=== PATIENT | male | born 1940 | race Caucasian/White ===

== ENCOUNTER 2018-11-21 16:06 | Inpatient (IN) ==
[2018-11-21] MEDS ORDERED: ASPIRIN PR ONE (16:41)
--- NOTE | 2018-11-21 17:53 | Diag Imaging Result Doc PS360 ---
CHEST-2 VIEWS - 11/21/2018 INDICATION: SOB COMPARISON: 06/25/2018 FINDINGS: There has been improvement in the opacification of the right upper lobe. Stable CABG changes and pacemaker. Able cardiomegaly and pulmonary vascular congestion. Stable trace pleural effusions bilaterally. IMPRESSION: Improved aeration of the opacification/collapse of the right upper lobe. Otherwise no change. Electronically signed by Man Lucia 11/21/2018 5:50 PM
[2018-11-21 17:54] LABS: BASO# 0.02 X1000 (0.0-0.2); BASO% 0.4 % (0.0-0.8); EOS# 0.26 X1000 (0.0-0.7); HEMATOCRIT 25.7 % (42.0-52.0); HEMOGLOBIN 7.7 g/dL (14.0-18.0); LYMPH# 0.75 X1000 (1.2-3.4); LYMPH% 14.6 % (20.5-51.1); MCH 23.8 PG (27-31); MCV 79.3 FL (81-99); MONO# 0.62 X1000 (0.11-0.59); PLT 173 X1000 (130-400); RBC 3.24 XMIL (4.7-6.1); RDW 19.7 % (11.5-14.5); WBC 5.15 X1000 (4.8-10.8)
[2018-11-21 17:56] LABS: INR 1.21; PROTIME 16.3 Seconds (11.0-16.0)
[2018-11-21 17:57] LABS: PTT 38.1 Seconds (22.3-41.8)
[2018-11-21 18:01] LABS: ALB/GLOB RATIO 1.5; ALBUMIN 3.2 g/dL (3.5-5.0); CALCIUM 8.2 mg/dL (8.8-10.2); CREATININE 2.5 mg/dL (0.7-1.2); POTASSIUM 4.4 mmol/L (3.5-5.1); TOTAL BILIRUBIN 0.61 mg/dL (0.20-1.00); TOTAL PROTEIN 5.3 g/dL (6.3-8.3)
[2018-11-21] MEDS ORDERED: LASIX IV ONE (18:40)
--- NOTE | 2018-11-21 19:40 | PROVIDER DOCUMENTATION ---
This chart was entered by Emelina Guadarrama Scribe, acting as scribe for Luis F Holguin CRNP. HPI-Respiratory General - General Chief Complaint: Shortness of Breath Stated Complaint: ABNORMAL LABS,CHF Time Seen by Provider: 11/21/18 16:18 Source: patient, family Allergies/Adverse Reactions: Patient Allergies Allergy/AdvReac Type Severity Reaction Status Date / Time Sulfa (Sulfonamide Allergy Intermediate RASH Verified 03/11/18 09:43 Antibiotics) baclofen Allergy confusion Verified 03/11/18 09:43 Home Medications: Home Medication List Medication Instructions Recorded Confirmed Last Taken Type Allopurinol 150 mg PO DAILY 03/11/18 06/26/18 Unknown History Aspirin [Aspir-Low] 81 mg PO DAILY 03/11/18 06/26/18 Unknown History Pravastatin Sodium 80 mg PO QHS 03/11/18 06/26/18 Unknown History Terazosin HCl 5 mg PO QHS 03/11/18 06/26/18 Unknown History Amiodarone [Cordarone] 400 mg PO DAILY #30 tab 03/15/18 06/26/18 Unknown Rx Folic Acid 1 mg PO DAILY #120 tab 03/15/18 06/26/18 Unknown Rx Ascorbate Calcium [Vitamin C] 500 mg PO DAILY 06/26/18 06/26/18 Unknown History Carvedilol 6.25 mg PO BID 06/26/18 06/26/18 Unknown History Cyanocobalamin (Vitamin B-12) 2,500 mcg PO DAILY 06/26/18 06/26/18 Unknown History [Vitamin B12] Ferrous Sulfate [Iron] 27 mg PO DAILY 06/26/18 06/26/18 Unknown History Hydrocodone Bit/Acetaminophen 1 each PO Q6H PRN PRN 06/26/18 06/26/18 Unknown History [Hydrocodon-Acetaminophen 5-325] Doxycycline 100 mg PO BID #7 tab 06/27/18 Unknown Rx Iron Carbonyl/Ascorbic Acid 1 each PO BID tablet 06/27/18 Unknown Rx [Icar-C] Mvi/Minerals Chew [Flintstones 1 each PO DAILY tablet 06/27/18 Unknown Rx Complete] Potassium Chloride E.r. [Klor-Con] 10 meq PO DAILY tablet 06/27/18 Unknown Rx Ranitidine [Zantac] 150 mg PO BID #10 tab 06/27/18 Unknown Rx - History of Present Illness-Resp Nature of Presenting Problem: 78 yowm presents to the ed with c/o worsening sob and fluid overload. pt has hx of CHF and has went last to weeks to [place] for [facility] work. [facility] told him to go to local ed. pt on exam is sob with exertion and has distended abdomen 3+ BLE edema. pt sts he noticed sob and more fluid retaining 3 weeks prior. pt denies scrotum swelling and sts mostly just BLE and abdomen just worsened since onset Quality of Pain: reports: pressure Severity in ED: reports: moderate Onset/Duration: reports: other (3 weeks) Timing: reports: still present, constant, getting worse Cough Quality/Degree: reports: mild Episode Frequency: occasional episodes Current Respiratory Medication Therapy: Initiated see nurses note Modifying Factors: improves with: oxygen, sitting upright. worse with: exertion, coughing Associated Symptoms: reports: cough, shortness of breath. denies: wheezing Similar Symptoms Previously?: Yes Recently seen or treated by another doctor?: Yes (has been to [place] ) Review of Systems - Adult - REVIEW OF SYSTEMS - ADULT Constitutional: denies: chills, fever Eyes: reports: no symptoms reported Ears, Nose, Mouth & Throat: reports: no symptoms reported Cardiovascular: denies: chest pain, palpitations Respiratory: reports: see HPI, cough, dyspnea on exertion, shortness of breath. denies: wheezing Gastrointestinal: reports: see HPI, other (distended abdomen). denies: abdominal pain, diarrhea, nausea, vomiting Genitourinary: reports: no symptoms reported Musculoskeletal: denies: back pain, neck pain Integumentary: reports: no symptoms reported Neurological: denies: dizziness/vertigo, headache/migraines, slurred speech, syncope, tremors Psychiatric: reports: no symptoms reported Endocrine: reports: no symptoms reported Hematologic/Lymphatic: reports: no symptoms reported Allergic/Immunologic: reports: no symptoms reported All Other Systems: Reviewed and Negative Past History - Adult - PAST MEDICAL HISTORY-ADULT Review of Records: reports: Old Records Reviewed, Nursing Assessment Review, Medications Reviewed, Social history reviewed & non-contributory. Major Childhood Illnesses: reports: denies history Cardiovascular: reports: CHF, HTN, hyperlipidemia, CO Respiratory: reports: denies history Gastrointestinal: reports: GERD Obstetrical/Gynecological: reports: denies history Genitourinary: reports: kidney disease Musculoskeletal: reports: denies history Neurological: reports: CVA, Multiple Sclerosis Psychiatric: reports: denies history Endocrine/Immune: reports: denies history Other Conditions: reports: denies history - PRIOR SURGERIES/PROCEDURES Surgical/Procedure History: reports: CABG, other (cartoids, stent in kidney) - IMMUNIZATION STATUS Childhood Immunizations: See Nurse Assessment Flu Vaccine: See Nurse Assessment - FAMILY HISTORY Family History: reviewed, not pertinent - SOCIAL HISTORY Smoking: denies Substance Use: denies Living Situation: family Physical Exam-General - PHYSICAL EXAM-ADULT Initial Vital Signs Reviewed: Yes - CONSTITUTIONAL General Appearance: appears well, alert, no apparent distress - EYES Eyes: PERRL/EOMI, pink conjunctivae - HEAD, EARS, NOSE, MOUTH & THROAT HENMT: moist mucous membranes, dental decay - NECK Neck: full range of motion, normal inspection - RESPIRATORY Respiratory: chest non-tender, lungs clear, normal breath sounds, other (sob with exertion or bending over at the waist) - CARDIOVASCULAR Cardiovascular: normal peripheral pulses, bradycardia (53) - GASTROINTESTINAL (ABDOMEN) Abdominal Exam: normal bowel sounds, soft, distended. negative: guarding - LYMPHATIC Lymphatic: no adenopathy - MUSCULOSKELETAL Back Exam: normal inspection, no CVA tenderness, no vertebral tenderness Extremity: normal range of motion, no calf tenderness, normal capillary refill, pelvis stable, swelling (BLE 3+) - SKIN Integumentary: normal color, normal turgor, warm/dry - NEUROLOGIC Neurologic: grossly normal, no motor/sensory deficits - PSYCHIATRIC Psych/Mental Status: normal mood/affect, normal thought content, normal thought process, oriented x 3 Progress - PLAN OF CARE/RESULTS Progress/Plan/Lab Results: Vital Signs - 8 hr 11/21/18 16:10 Temperature 97.6 F Pulse Rate 53 L Respiratory Rate 16 Blood Pressure 101/62 O2 Sat by Pulse Oximetry 98 Laboratory Results - last 24 hr 11/21/18 11/21/18 11/21/18 17:05 17:05 17:05 WBC 5.15 RBC 3.24 L Hgb 7.7 L Hct 25.7 L MCV 79.3 L MCH 23.8 L MCHC 30.0 L RDW Std Deviation 19.7 H Plt Count 173 MPV 12.0 H Immature Gran % (Auto) 0.0 Neut % (Auto) 68.0 Lymph % (Auto) 14.6 L Allen % (Auto) 12.0 H Eos % (Auto) 5.0 Baso % (Auto) 0.4 Immature Gran # (Auto) 0.00 Neut # (Auto) 3.50 Lymph # (Auto) 0.75 L Allen # (Auto) 0.62 H Eos # (Auto) 0.26 Baso # (Auto) 0.02 PT INR PTT (Actin FS) Sodium 140 Potassium 4.4 Chloride 109 H Carbon Dioxide 18 L Anion Gap 13 BUN 37 H Creatinine 2.5 H Estimated GFR/1.73 m2 25 BUN/Creatinine Ratio 15 Glucose 99 Calculated Osmolality 288 Calcium 8.2 L Total Bilirubin 0.61 AST 20 ALT 16 Alkaline Phosphatase 152 H Creatine Kinase 27 Troponin T Cxy-P-Ztbyhulthop Pept 49647 H Total Protein 5.3 L Albumin 3.2 L Globulin 2.1 Albumin/Globulin Ratio 1.5 11/21/18 11/21/18 17:05 17:05 WBC RBC Hgb Hct MCV MCH MCHC RDW Std Deviation Plt Count MPV Immature Gran % (Auto) Neut % (Auto) Lymph % (Auto) Allen % (Auto) Eos % (Auto) Baso % (Auto) Immature Gran # (Auto) Neut # (Auto) Lymph # (Auto) Allen # (Auto) Eos # (Auto) Baso # (Auto) PT 16.3 H INR 1.21 PTT (Actin FS) 38.1 Sodium Potassium Chloride Carbon Dioxide Anion Gap BUN Creatinine Estimated GFR/1.73 m2 BUN/Creatinine Ratio Glucose Calculated Osmolality Calcium Total Bilirubin AST ALT Alkaline Phosphatase Creatine Kinase Troponin T < 0.010 Uef-A-Dqkktnwyggo Pept Total Protein Albumin Globulin Albumin/Globulin Ratio Orders Category Date Time Status Cardiac Monitoring DIRECTED Care 11/21/18 16:42 Active Saline Loc NOW Care 11/21/18 16:42 Active CHEST-2 VIEWS [RAD] Stat Exams 11/21/18 16:42 Completed CBC WITH ELECTRONIC DIFF [HEME] Stat Lab 11/21/18 17:05 Completed CK PROFILE [SP CHEM] Stat Lab 11/21/18 17:05 Completed COMPREHENSIVE METABOLIC PANEL [CHEM] Stat Lab 11/21/18 17:05 Completed PRO B-NATRIURETIC PEPTIDE Stat Lab 11/21/18 17:05 Completed PROTIME WITH INR [COAG] Stat Lab 11/21/18 17:05 Completed PTT [COAG] Stat Lab 11/21/18 17:05 Completed TROPONIN T Stat Lab 11/21/18 17:05 Completed Aspirin Med 11/21/18 16:41 Discontinued 300 mg [place] NOW ONE Furosemide [Lasix] Med 11/21/18 18:40 Discontinued 40 mg IV NOW ONE CP/SOB/Palp >45 yrs of Age Stat Oth 11/21/18 16:41 Ordered EKG [EKG] Stat Ther 11/21/18 16:42 Ordered I discussed with the pt the findings of his Labs, CXR, and PE findings. He agreed to be admitted. I discussed with Dr. Samayoa the pt findings and he agreed to admit the pt. Result Diagrams: 11/21/18 17:05 11/21/18 17:05 - CONSULTS/PCP/HOSPITALIST Notification #1 *Consult/PCP/Hospitalist*: Dr. Samayoa Time Discussed: 19:39 Reason/Comments: CHF, anemia Consult Disposition: Admit Departure - Departure Date of Disposition Decision: 11/21/18 Time of Disposition Decision: 19:40 DIAGNOSIS: CHF (congestive heart failure), Anemia Disposition: ADMITTED INPATIENT 09 Certified Medical Emergency: Emergent Condition: Stable Referrals and Follow-Ups: None,PCP [Primary Care Provider] - - Critical Care Note This patient required my direct & personal management of CC.: No Attestation - Physician/ PATRICIA Attestation Patient care was provided by Advanced Practice Provider:: Yes Advanced Practice Provider documentation review:: The Mid-level provider documentation, treatment plan and medical decision making was reviewed by the physician who agrees with all treatment and medical decision making by the MLP. The physician spent face to face time with patient:: No Advanced Practice Provider documentation review:: Supervising physician onsite and consulted in the evaluation and care of this patient. The physician did not have a face to face encounter with the patient. This chart was documented by the indicated scribe, (Emelina Guadarrama Scribe) and accurately reflects the services I performed and decisions made by me, Luis F Holguin CRNP, as attested by the provider's signature.
--- NOTE | 2018-11-21 21:40 | HISTORY AND PHYSICAL ---
PRIMARY CARE DATABASE MODELER: Dr. Paras Saavedra. [facility] also [facility]. PRIMARY CARE PROVIDER: [place], [place]. REASON FOR ADMISSION: One week history of progressive shortness of breath. HISTORY OF PRESENT ILLNESS: Mr. Mekhi Parra is a 78-year-old male with past medical history of chronic systolic heart failure with an ejection fraction of about 20%. He also has a history of hypertension, hyperlipidemia, and coronary artery disease status post CABG x2. He has other history of BPH, hypertensive heart disease, renal artery stenosis, gout, AAA, prior CVA with right- sided weakness, and chronic anemia. His most recent echo, however, was done on June of last year was 30%. The patient reports over the last one week he has been having progressive shortness of breath with mild exertion, lower extremity and abdominal swelling, and a worsening cough, which is nonproductive. He denies any chest pain, palpitations, or anginal type symptoms. He denies any orthopnea or PND. He does admit to easy satiety and decreased appetite over the last one month. He also reports increased weakness of his lower extremity, up to the point over the last two weeks he has been unable to barely stand and change his pants. He has also had increased falls as a consequence of weakness in his lower extremities, although right greater than left due to prior CVA. No fever. No chills. No additional GI complaints. No complaints. No new focal neurological complaints. No polydipsia, arthralgia, or rash. REVIEW OF SYSTEMS: 12 systems were done, positive findings are noted above. ALLERGIES: Sulfa and Baclofen. HOME MEDICATIONS: List has not been reconciled, but oddly enough when I reviewed his home medication list, I did not see any discharge medications, i.e. Lasix, when I reviewed his discharge medication list, it was not noted at all. PAST MEDICAL HISTORY: Questionable history of multiple sclerosis and chronic kidney disease stage 3. Other findings as noted above. FAMILY HISTORY: Notable for heart disease in first-degree relatives. 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 Does not smoke but drinks occasional beer. No sodas. No illicit drug use. He is and lives with his . PAST SURGICAL HISTORY: He has had a pacemaker placed, CABG x2, right renal artery stent. IMAGING: X-ray showed mild pulmonary venous congestion. LABORATORY WORK: White count 5000, hemoglobin 7, hematocrit 25, MCV 79, RDW 19, platelet count is 173,000 with normal differential. BUN 27, creatinine 2.5, which is pretty much his baseline, proBNP is 15,000. Troponin is negative. Transaminases are negative. Alkaline phosphatase is 152. PT is 16, INR 1.2. EKG was ordered but has not been done at this time. PHYSICAL EXAMINATION: GENERAL: Chronically ill, thin elderly man who is not in acute distress. VITAL SIGNS: Blood pressure is 101/60, heart rate 53, respirations 16, temperature 97.6. Oxygen saturation 98% on room air HEAD: Normocephalic, atraumatic. EYES: PERRLA. EOMI. He is anicteric, mildly pale. ENT: Oropharyngeal exam is grossly normal. No central cyanosis. NECK: Supple. Noticeable JVD and possible hepatojugular reflux. He has a right carotid bruit. CHEST: Reveals decreased entry in both lung quigley with a few bibasilar crepitations. No wheezes. CARDIOVASCULAR: First and second heart sounds are heard. No gallops. Loud 3/6 ejection systolic murmur heard radiating into the neck. Rhythm is regular. ABDOMEN: Distended. No focal areas of tenderness. No masses or organomegaly. Bowel sounds are normal. RECTAL: Exam is deferred. EXTREMITIES: Patient has 3+ pitting edema in the right lower extremity and 2+ on the left. His distal lower extremities are cool to touch. I cannot appreciate any pulsations due to degree of edema in both feet. No clubbing or peripheral cyanosis. He has 2+ pulses distally in both upper extremities. Pulses are regular, good rhythm and symmetrical. NEUROLOGIC: The patient has noticeable right-sided hemiparesis, I rate it about 2/5 on the right and he has a flexion deformity of the right MCP and PIP joints of the hand. There is no other focal deficit. SKIN: Intact with a few bruises on the dorsal aspect of his right forearm and shins of both legs. MUSCULAR: Grossly normal otherwise, except for findings as noted above. ASSESSMENT: 1. Acute on chronic systolic heart failure exacerbation. 2. Microcytic anemia probably secondary to iron deficiency anemia ? "gastrointestinal bleed" 3. Coronary artery disease. 4. Chronic kidney disease. 5. Hypertensive heart disease. 6. Benign prostatic hypertrophy. 7. Peripheral arterial disease. 8. Gout. 9. Hyperlipidemia. PLAN: This patient has been given IV push Lasix. I am going to continue the Lasix drip. Do daily BMP and chest x-rays to document the effect of our treatment on this patient. EKG is still pending. Will need reviewed. Serial enzymes will be done. The patient will definitely need his medications overhauled. He has relative contraindication to ARB and spironolactone. Consider BiDil, if patient can tolerate. Dietary consult needs to be made for this patient. Of issue, this patient has a degree of microcytosis, suggestive of possible iron deficiency anemia. Will do Hemoccult stools to make sure there is no bleeding. Start the patient on PPI since he is on chronic aspirin therapy. If the patient's stools are positive, may elect to just treat conservatively with PPI and if he continues to have microcytosis and iron deficiency anemia, then EGD may be warranted. The rest of the anemia workup as ordered needs to be followed. For now, will withhold transfusion but type and screen has been ordered. This is because patient may have dilution effect from CHF and reassess tomorrow to see where the hemoglobin and hematocrit is and then decide on transfusion, if deemed necessary. cc: Bing Samayoa MD MTDD
[2018-11-21] MEDS ORDERED: NORCO-10 PO PRN (21:51)
[2018-11-21] MEDS: NORCO-5 PO PRN (22:30)
[2018-11-21] MEDS: DUONEB (A & A) INH SCH (22:38)
[2018-11-21] MEDS: LASIX 100 MG in NS 90 ML IV SCH (22:57)
[2018-11-21] MEDS: PROTONIX PO SCH (22:58)
[2018-11-21 23:20] LABS: RETIC% 0.56 % (0.8-2.1); RETIC-HE 22.6 PG (28.2-36.6)
[2018-11-21 23:56] LABS: IRON SATURATION 7 %; TIBC 332 ug/dL; TOTAL IRON 24 ug/dL (53-167); UNBOUND IRON 308 ug/dL (112-346)
[2018-11-22 02:39] LABS: URINE SOURCE CATH
[2018-11-22 03:12] LABS: BILIRUBIN URINE NEGATIVE (NEGATIVE); BLOOD URINE NEGATIVE (NEGATIVE); COLOR YELLOW; GLUCOSE URINE NEGATIVE (NEGATIVE); KETONE URINE NEGATIVE (NEGATIVE); LEUKOCYTES URINE NEGATIVE (NEGATIVE); NITRITE URINE NEGATIVE (NEGATIVE); PROTEIN URINE 30 mg/dL (NEGATIVE); SP GRAVITY URINE 1.005; TURBIDITY URINE HAZY (CLEAR); UR EPITHELIAL CELLS <10 /HPF (<10); URINE BACTERIA NEGATIVE /HPF; URINE RBC <10 /HPF (<10); URINE WBC <10 /HPF (<10); UROBILINOGEN URINE NORMAL (NORMAL)
[2018-11-22 05:26] LABS: BASO# 0.03 X1000 (0.0-0.2); BASO% 0.6 % (0.0-0.8); EOS# 0.31 X1000 (0.0-0.7); EOS% 6.2 % (0.0-10.0); HEMATOCRIT 26.6 % (42.0-52.0); LYMPH# 0.96 X1000 (1.2-3.4); LYMPH% 19.3 % (20.5-51.1); MCHC 30.1 g/dL (33-37); MCV 79.6 FL (81-99); MONO# 0.53 X1000 (0.11-0.59); MONO% 10.7 % (1.7-9.3); MPV 10.8 FL (7.4-10.4); NEUT# 3.14 X1000 (1.4-6.5); NEUT% 63.2 % (42.2-75.2); PLT 169 X1000 (130-400); RBC 3.34 XMIL (4.7-6.1); RDW 20.1 % (11.5-14.5); WBC 4.97 X1000 (4.8-10.8)
[2018-11-22 05:41] LABS: ALB/GLOB RATIO 1.6; ALBUMIN 3.2 g/dL (3.5-5.0); CALCIUM 8.3 mg/dL (8.8-10.2); CREATININE 2.8 mg/dL (0.7-1.2); MAGNESIUM 2.1 mg/dL (1.5-2.7); POTASSIUM 4.2 mmol/L (3.5-5.1); TOTAL BILIRUBIN 0.8 mg/dL (0.20-1.00); TOTAL PROTEIN 5.2 g/dL (6.3-8.3)
--- NOTE | 2018-11-22 07:05 | EKG Report ---
Test Performed on : 11/21/2018 9:49:24 PM Test Reason : SOB Blood Pressure : / mmHG Vent. Rate : 063 BPM Atrial Rate : 038 BPM P-R Int : 000 ms QRS Dur : 142 ms QT Int : 540 ms P-R-T Axes : 000 263 100 degrees QTc Int : 552 ms Ventricular-paced rhythm Abnormal ECG When compared with ECG of 25-JUN-2018 17:15, Vent. rate has decreased BY 17 BPM Unconfirmed Result
[2018-11-22] MEDS: NORCO-5 PO PRN ×2 (07:17→13:35)
[2018-11-22] MEDS: DUONEB (A & A) INH SCH ×3 (07:41→21:05)
[2018-11-22] MEDS: PROTONIX PO SCH (08:20)
[2018-11-22] MEDS: ISORDIL PO SCH ×2 (12:09→16:28)
[2018-11-22] MEDS ORDERED: NS IV ONE (12:32)
[2018-11-22] MEDS ORDERED: INFED 250 MG in NS 250 ML IV ONE (12:32)
[2018-11-22] MEDS ORDERED: INFED IV ONE (12:32)
--- NOTE | 2018-11-22 12:39 | CARDIOLOGY CONSULTATION ---
DATE: 11/22/2018 CHIEF COMPLAINT ON PRESENTATION: Swelling. HISTORY OF PRESENT ILLNESS: Mr. Parra is a 78-year-old male with a history of systolic heart failure due to an ischemic cardiomyopathy. Previous ejection fractions were in the 20-30% range. He has a history of 2 separate bypass procedures as well as severe aortic stenosis. He presented for evaluation of around 2 weeks of swelling in his abdomen as well as his lower extremities. He cannot think of any illnesses that began around 2 months ago such as upper respiratory infections. He cannot think of any medication changes, either stopping or starting of medications. He cannot report any significant sodium indiscretion that he has had. He reports no pain complaints; specifically, no chest pain. He denies any orthopnea. PAST MEDICAL HISTORY: 1. Significant for coronary artery disease with previous myocardial infarction. He has had 2 separate bypass procedures, the first being in the 1970s, I believe at [facility]. The other was in the s at [facility]. His last heart catheterization was in December of [address] Phillips He has an occluded left main. His RCA was occluded as well. He had a CARRION to the LAD that was large and tortuous, and free of disease. The alturas LAD was free distal of the anastomosis which was the mid level of the vessel. There was a vein graft to a ramus with mild ostial calcification as well as distal eccentric 40% lesions. There was an eccentric 50% anastomotic lesion. The ramus distal to the anastomosis was noted to be free of disease. It supplies collaterals to the distal left circumflex. There was a vein graft to a PDA and OM 1 that had a distal aneurysmal dilatation just prior to the anastomosis. The PDA just distal to the anastomosis has an eccentric calcified 50-60% stenosis. The jump portion of the graft attaches to the first obtuse marginal. There was an eccentric 70-80% anastomotic lesion. There was an abdominal aortogram, moderate aneurysmal dilatation in the distal abdominal aorta with severe tortuosity of the level both iliacs. The right iliac has an eccentric calcified 50-60% lesion, ulcerated plaque with an associated of 50-60% stenosis at the level of the mid and distal right common iliac. Right common femoral was severely calcified with a 50-60% percent disease. The left iliac has an eccentric 50-60% stenosis followed by an aneurysmal dilatation and diffuse nonobstructive disease down to the common femoral. The left common femoral prior to the takeoff of the profunda and superficial femoral artery has a severely calcified eccentric 80-90% lesion. 2. Ischemic cardiomyopathy. Last echocardiogram in June 2018 showed an ejection fraction of 30% with akinesis and thinning of the septum and anterior septum. 3. Aortic stenosis, thought to be severe. Peak gradient of 63, mean of 39, and a valve area of 0.8 cm2 on study in June of 2018. 4. Pulmonary hypertension. 5. Atrial tachycardia, status post ablation in [place]. 6. Complete heart block with a history of defibrillator implant. 7. Hypertension. 8. Hyperlipidemia. 9. 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 10. Peripheral vascular disease, as detailed above in the catheterization note. 11. Carotid artery disease with a right-sided carotid stent. 12. Abdominal aortic aneurysm, as detailed in the left heart catheterization note. 13. Chronic kidney disease. Per our records, his creatinine seems to run in the mid to high 2 range. 14. Renal artery stenosis with previous stents. 15. Gout. 16. Multiple sclerosis. 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 He does not smoke currently. Occasional beer. He is and lives with his . FAMILY HISTORY: Notable for heart disease in his first-degree relatives. REVIEW OF SYSTEMS: A 10 system review of systems is negative except for those things mentioned in the HPI. PHYSICAL EXAMINATION: Vital Signs: He is afebrile. His heart rate is 66. His blood pressure is 119/54. His Is and Os thus far have been difficult to track as he has limited input data recorded but so far, he is negative around 2.5 L. General: He is in no acute distress. He is an ill- appearing, somewhat cachectic, white male in no acute distress. HEENT: Oropharynx is moist. He has poor dentition. His eye examination shows pink conjunctivae and white sclerae. Neck: Examination shows no obvious thyromegaly or thyroid tenderness. Cardiovascular: He sounds to be in a regular rate and rhythm. He has somewhat distant heart sounds. He has a soft 2/6 systolic murmur best heard at the right upper sternal border. He has bilateral lower extremity edema on the order of 2+. Warm and well perfused extremities. Chest: Examination has some reduction in the bilateral bases but no increased work of breathing. Abdomen: Very protuberant, somewhat distended. Evidence for a fluid wave. Bowel sounds were heard. Nontender. Skin Examination: Warm and dry throughout, without any rashes. Neurological: He is moving all extremities well. He has no lateralizing deficits. Psychiatric: He is alert, oriented, pleasant. Normal mood and affect. PERTINENT DATA: Chest x-ray compared to the June study has an improvement in the opacification of the right upper lobe. Cardiomegaly and pulmonary vascular congestion is noted with stable trace bilateral effusions. His EKG seemed to show a ventricular paced rhythm. Not clearly evident what the atrial rhythm is. His lab data shows a white count of 4.9, his hematocrit is 26, his platelet count is 169,000. His sodium is 145, potassium 4.2, BUN 38, creatinine is 2.8. His proBNP yesterday was 14,866. He has negative cardiac enzymes. His TSH was 14.04. Urinalysis yesterday showed 30 protein. ASSESSMENT: Mr. Parra is a 78-year-old gentleman who presented with heart failure, felt to be systolic. In addition, he has a history of severe aortic stenosis and significant peripheral vascular disease. PLAN: We last saw the patient in clinic in April of 2018. At that time, [facility] to the [facility] Cardiovascular Surgery regarding his aortic stenosis. We referred our records to Dr. Yoon and asked the patient to stay in touch with us to make sure the [facility] follows [facility] with this evaluation. I am unclear of the extent of this evaluation or if anything has been done at this point. I am not sure of his candidacy. He certainly does not seem to be a candidate for a surgical procedure and with his extensive peripheral vascular disease, he may not be a candidate for a femoral approach. We will [facility] to obtain [facility] the [facility]. Currently, he does seem to be diuresing. I have switched his isosorbide mononitrate to dinitrate in a t.i.d. fashion. I have initiated aspirin at an 81 mg dose, stopped his Pravachol, and initiated atorvastatin at an 80 mg dose. We will continue to titrate the patient's heart failure medications. I am unclear of the reason why he is on amiodarone. He was not noted to be on that medication the last time we saw him in the clinic but it was also noted that we did not have an accurate medication list as the patient did not bring his medications. He does not seem to be on anticoagulation at home. cc: Paras Saavedra MD MTDD
--- NOTE | 2018-11-22 13:10 | PROGRESS NOTE ---
DATE: 11/22/2018 INTERVAL HISTORY: Mr. Parra was admitted for acute systolic congestive heart failure exacerbation in the setting of chronic kidney disease stage 4 and was started on intravenous Lasix. On review, he had about 1.9 L of urine output yesterday and about 1 L of urine so far in the last 24 hours. SUBJECTIVE: Patient is denying any chest pain, shortness of breath, palpitations, nausea, vomiting, abdominal pain. He is feeling fine. We discussed with him about his clinical condition. I answered all of his questions. We discussed with him that he would need a software development project manager's consultation and close monitoring of his kidney function. VITALS: Currently, temperature 97.6 degrees, pulse 65, respiratory rate 16, blood pressure 112/50, saturating 95% on room air. PHYSICAL EXAMINATION: General: Does not appear in any acute distress. Oral cavity is moist. Lungs: Decreased air entry in the left base of the lung with inspiratory crackles, bilateral infrascapular region. S1 is obscured with a pansystolic murmur affecting entire precordium, accentuated during expiration. No rub or gallop. Abdomen: Distended, soft, except dullness to percussion on flank and tympany to percussion in periumbilical region. No tenderness. No hepatosplenomegaly. There is abdominal wall edema. Bilateral lower extremity edema extending up to thigh. LABS: Suggestive of microcytic anemia which is chronic, normal platelet count, elevated BUN and creatinine in the setting of chronic kidney disease stage 4, elevated alkaline phosphatase which could happen in the setting of fall. His TSH was elevated as well. On medication review, he is not listed to be taking levothyroxine and I will add free T4. ASSESSMENT AND PLAN: 1. Acute on chronic systolic congestive heart failure with ejection fraction of 20%, status post automatic implantable cardioverter defibrillator. Continue intravenous diuresis through the Lasix drip. Continue home carvedilol. I will appreciate cardiology recommendation. Continue close input and output monitoring with Rosario catheter, and close BMP and kidney function monitoring. 2. Coronary artery disease, status post coronary artery bypass graft twice in the past. Continue aspirin, atorvastatin. Continue home isosorbide dinitrate. 3. Microcytic anemia. Followup iron panel, fecal occult blood test. Continue pantoprazole 40 mg daily for now and increase the dose according to occult blood testing. 5. Subclinical hypothyroidism: no need for treatment. 4. H/o CVA s/p right sided residual weakness, history of BPH, History of peripheral arterial disease, renal artery stenosis s/p stent: Stable. 4. Others. Continue home allopurinol, amiodarone, and [place] for chronic pain. 5. Disposition. The patient remains inside [facility] for close monitoring of his cardiac, respiratory, and renal status. Plan of care discussed with the patient. All of his questions have been answered. I will have physical therapy evaluate him and we will keep him on stool softeners to avoid constipation. His is a surrogate decision maker. cc: Nikolay Manjarrez MD MTDD
[2018-11-22] MEDS: MIRALAX PO SCH (13:35)
[2018-11-22] MEDS: LASIX 100 MG in NS 90 ML IV SCH (16:26)
[2018-11-22] MEDS: TYLENOL PO PRN (16:32)
[2018-11-22] MEDS: LIPITOR PO SCH (20:05)
[2018-11-22] MEDS: COREG PO SCH (20:05)
[2018-11-22] MEDS ORDERED: PRAVACHOL PO SCH (21:00)
--- NOTE | 2018-11-22 23:09 | ECHO REPORT ---
ORDER DATE: 11/21/2018 ECHOCARDIOGRAPHIC MEASUREMENTS: 1. Left ventricular internal diameter in diastole 5.0. 2. Septal thickness 0.6. 3. Left atrium 4.6. 4. Aortic root 3.7 summary. SUMMARY: 1. Fair quality study. 2. Fibrocalcific changes of aortic valve demonstrated with reduced aortic valve leaflet mobility. Peak gradient across the aortic valve is 61 mmHg, with a mean gradient of 37 mmHg. The calculated aortic valve area is less than 0.8 cm2, suggesting severe aortic stenosis. There is mild aortic regurgitation. Mitral, tricuspid, and pulmonic valves are without evidence of structural abnormality with moderate mitral regurgitation and moderate to severe tricuspid regurgitation. There is moderate pulmonic insufficiency. Estimated systolic PA pressure by Doppler is 75 mmHg, suggesting moderate to severe pulmonary hypertension. The aortic root is normal in size. 3. Normal left ventricular chamber size. The septum is relatively thin. Remaining wall segments appear to have normal thickness. Estimated left ventricular ejection fraction is approximately 25% to 30% in setting of akinesis and thinning of the septum and anteroseptal wall. There also appears to be severe hypokinesis of the basal inferolateral region. Left atrium is moderately enlarged. Right atrium, right ventricle appears moderately enlarged. Pacemaker/defibrillator lead evident in the right ventricle. 4. No pericardial effusion. 5. Appearance of inferior vena cava suggests elevated central venous pressure. CONCLUSIONS: 1. Severe calcific aortic stenosis with mild aortic regurgitation. 2. Moderate mitral regurgitation. 3. Moderate to severe tricuspid regurgitation with moderate to severe pulmonary hypertension by Doppler. 4. Estimated left ventricular ejection fraction approximately 25% to 30% with akinesis and thinning of the septum and anteroseptal wall. There is also severe hypokinesis of the basal inferolateral wall. 5. Moderate left atrial enlargement. 6. Mild to moderate right ventricular enlargement with mild right atrial enlargement. 7. Elevated central venous pressure suggested. cc: MD Bing Olivas MD
[2018-11-23 05:37] LABS: CALCIUM 8.3 mg/dL (8.8-10.2); CREATININE 2.9 mg/dL (0.7-1.2); POTASSIUM 4.3 mmol/L (3.5-5.1)
[2018-11-23] MEDS: NORCO-5 PO PRN ×3 (06:04→20:57)
[2018-11-23] MEDS: LASIX 100 MG in NS 90 ML IV SCH (07:24)
[2018-11-23] MEDS: DUONEB (A & A) INH SCH ×3 (07:45→21:55)
--- NOTE | 2018-11-23 07:50 | EKG Report ---
Test Performed on : 11/23/2018 06:37:20 AM Test Reason : chf Blood Pressure : / mmHG Vent. Rate : 068 BPM Atrial Rate : 068 BPM P-R Int : 000 ms QRS Dur : 158 ms QT Int : 524 ms P-R-T Axes : 000 266 110 degrees QTc Int : 557 ms Ventricular-paced rhythm Abnormal ECG When compared with ECG of 21-NOV-2018 21:49, (Unconfirmed) Vent. rate has increased BY 5 BPM Unconfirmed Result
[2018-11-23] MEDS: PROTONIX PO SCH (08:34)
[2018-11-23] MEDS: ISORDIL PO SCH ×3 (08:35→16:50)
[2018-11-23] MEDS: MIRALAX PO SCH ×2 (08:35→10:35)
[2018-11-23] MEDS: ASPIRIN EC PO SCH (08:35)
[2018-11-23] MEDS: CORDARONE PO SCH (08:35)
[2018-11-23] MEDS: ZYLOPRIM PO SCH (08:35)
[2018-11-23] MEDS: COREG PO SCH ×2 (08:35→20:58)
[2018-11-23] MEDS: HEPARIN SUBQ SCH ×3 (08:38→20:57)
[2018-11-23] MEDS ORDERED: MIRALAX PO SCH (09:00)
[2018-11-23] MEDS ORDERED: IMDUR PO SCH (09:00)
[2018-11-23] MEDS: FLEXERIL PO PRN (10:52)
--- NOTE | 2018-11-23 11:14 | PROGRESS NOTE ---
DATE: 11/23/2018 INTERVAL HISTORY: Patient was given intravenous iron dextran, which he tolerated well. He continues to have a good amount of diuresis. SUBJECTIVE: He denies any chest pain, shortness of breath, palpitation. He complains of some muscle spasms of his right ankle and right groin and some itching over his back. We discussed about his clinical condition. He states that he had a longtime ago seen a batter mixer at [facility] for aortic stenosis, but has not seen 1 in recent past. We discussed about continuing with the current management, and I answered all of his questions. OBJECTIVE: Vital Signs: Temperature 98.3 degrees, pulse 66, respiratory rate 15, blood pressure 102/47, saturating 98% on room air. General: He does not appear in any acute distress. Mouth: Oral cavity is moist. Lungs: Decreased air entry in left base of the lung with bilateral inspiratory crackles in infrascapular region. Heart: S1 is obscured with pansystolic murmur affecting entire precordium, accentuated during expiration. No rub or gallop. Abdomen: Distended. Soft, except dullness to percussion on flank. He has not had a bowel movement yesterday. No tenderness. No hepatosplenomegaly. There is abdominal wall edema. Extremities: Bilateral lower extremity edema extending up to thighs. His right groin and right ankle examination suggest there is no lymphadenopathy. There is no localized erythema. He has significant swelling of his right side than on the left side. Neurological examination: He is alert and oriented x3. He does have residual weakness of his right wrist and elbow joint with flexion contracture. He also has mildly diminished strength on right shoulder as compared to left with power about 4/5. His power is intact on left upper extremity. In bilateral lower extremities, he is able to wiggle his toes, but not able to lift both extremities above ground level. LABS: Today suggestive of potassium of 4.3, magnesium of 2. Continues to have elevated BUN and creatinine in CKD stage IV range. Input and output suggest he has 5.2 L in the last 24 hours. ASSESSMENT AND PLAN: 1. Acute on chronic systolic congestive heart failure with ejection fraction of 20%, status post automatic implantable cardioverter defibrillator with history of aortic stenosis. Continue intravenous diuresis through Lasix drip with close monitoring of input, output and kidney function. Continue home carvedilol, isosorbide, and follow up with proBNP tomorrow. 2. Coronary artery disease status post coronary artery bypass graft twice in the past. Continue aspirin, high-dose atorvastatin. As mentioned, the indication of amiodarone is unclear at the moment. 3. Microcytic anemia with iron deficiency status post intravenous iron, which he tolerated well. I will give another dose of iron after 24 hours. Fecal occult blood test is pending. Start patient on MiraLAX for constipation. 4. Subclinical hypothyroidism. He should get repeat thyroid function tests done as an outpatient. 5. History of cerebrovascular accident status post right-sided residual weakness, history of benign prostatic hypertrophy, history of peripheral arterial disease, renal artery stenosis status post stent. Currently these issues are stable. Continue cyclobenzaprine for muscle spasms and [place] for chronic pain with allopurinol for history of gout. 6. Disposition: Patient remains inside [facility] for intravenous diuresis. Cardiology on board and awaiting [facility] records if any intervention was planned on his aortic stenosis, which might be contributing to his heart failure. Plan of care discussed with the patient. All of his questions have been answered. cc: Nikolay Manjarrez MD
--- NOTE | 2018-11-23 16:46 | CARDIOLOGY PROGRESS NOTE ---
DATE: 11/23/2018 SUBJECTIVE: Mr. Parra is a 78-year-old gentleman with severe aortic stenosis. He reports over the night, he did much better on Lasix infusion. His I's and O's are down. He reports his abdomen is much less distended. He is not having any orthopnea. PHYSICAL EXAMINATION: Vital Signs: He is afebrile, his heart rate is 61. His systolic blood pressures have been anywhere from the high 90s to 110s. His I Os are markedly negative, on the order of around 6 L. General: He is in no acute distress. Cardiovascular: He sounds to be in a regular rate and rhythm. He has a 2/6 systolic murmur at the right upper sternal border. He has 2+ bilateral lower extremity edema with warm and well perfused lower extremities. Lungs: His chest exam sounds relatively clear. He has no increased work of breathing. Abdomen: Distended but seems less firmer presently than yesterday. It is nontender. LABORATORY DATA: His lab data demonstrates a sodium of 142, potassium 4.3, BUN 39, creatinine 2.9. Yesterday, it was 38 and 2.8. ASSESSMENT: Mr. Parra is a 78-year-old gentleman with severe aortic stenosis and coronary disease as well as systolic heart failure. PLAN: He has a proBNP checked in the morning as well as a BMP. I would continue him on the current medications and likely try to transition him off the Lasix drip in the near future. I will forward his information to the valve Clinic in [place] so they can follow up with him as an outpatient. I discussed his previous evaluations for this at the [facility] and it sounds like they had tried to move him through the process of getting his valve replaced, however, he never followed through with this due to the [facility] being in [place] and his transportation issues being significantly limited in that regards. Presently, he is on ISDN, Coreg, high-intensity statin therapy. In addition, he is on amiodarone at 200 mg daily which seems to be on his notes from this hospital as far back as March, but I cannot see any anticoagulation during that time period and I am still unclear of the exact reason for that medication. We are continuing to investigate. cc: Paras Saavedra MD
[2018-11-23] MEDS: LIPITOR PO SCH (20:58)
[2018-11-24] MEDS: LASIX 100 MG in NS 90 ML IV SCH ×2 (02:49→03:59)
[2018-11-24] MEDS: HEPARIN SUBQ SCH ×4 (04:15→20:03)
[2018-11-24 06:05] LABS: CALCIUM 8.5 mg/dL (8.8-10.2); MAGNESIUM 1.9 mg/dL (1.5-2.7); POTASSIUM 3.6 mmol/L (3.5-5.1)
[2018-11-24] MEDS: DUONEB (A & A) INH SCH ×3 (07:47→23:10)
[2018-11-24] MEDS: ZYLOPRIM PO SCH (08:21)
[2018-11-24] MEDS: PROTONIX PO SCH (08:22)
[2018-11-24] MEDS: ASPIRIN EC PO SCH (08:22)
[2018-11-24] MEDS: MIRALAX PO SCH (08:22)
[2018-11-24] MEDS: CORDARONE PO SCH (08:22)
[2018-11-24] MEDS: COREG PO SCH ×2 (08:22→20:03)
[2018-11-24] MEDS: ISORDIL PO SCH ×4 (08:22→17:13)
[2018-11-24] MEDS ORDERED: MAGNESIUM SULFATE 2 GM/S.W.I. 2 GM/50 ML IVPB IV ONE (08:26)
[2018-11-24] MEDS: TYLENOL PO PRN (08:32)
[2018-11-24] MEDS: KLOR-CON PO SCH ×2 (08:36→11:55)
[2018-11-24] MEDS ORDERED: INFED 250 MG in NS 250 ML IV ONE (09:34)
[2018-11-24] MEDS: LACTULOSE PO SCH ×3 (10:59→20:03)
--- NOTE | 2018-11-24 12:05 | PROGRESS NOTE ---
DATE: 11/24/2018 INTERVAL HISTORY: No acute events overnight. The patient was feeling good. Did not have any complaints. Denies chest pain or shortness of breath. He has not had a bowel movement. I discussed with him about his iron deficiency anemia, hypothyroidism, need for colon cancer screening, need for fecal occult blood test. I answered all of his questions. He denies chest pain, shortness of breath. Continues to have lower extremity edema. PHYSICAL EXAMINATION: Vital signs: Temperature 98.9 degrees, pulse 74, respiratory rate 14, blood pressure 94/45, saturating 96% on room air. General: He does not appear in any acute distress. He has thin and lean body with abdominal ascites. Bilateral lower extremity edema. Oral cavity is moist. No pallor, cyanosis, clubbing, or icterus except conjunctival pallor. Lungs: Air entry bilaterally equal with no wheeze, rhonchi, or crackles, except bilateral base of the lung where he had inspiratory crackles. Heart: S1 is obscured with pansystolic murmur affecting the entire precordium, accentuated during expiration. No rub or gallop. Abdomen: Distended soft, except dullness in the flank and has shifting dullness. No tenderness. No hepatosplenomegaly. There is abdominal wall edema and there is jugular venous distention. Extremities: Bilateral lower extremity edema extending up to thigh. Neurological: He is alert oriented x3. On my previous examination. He did have residual weakness of his right wrist, right elbow with flexion contracture and mildly diminished strength on the right shoulder as compared to the left so that he was not able to perform overhead abduction. His power was intact on left upper extremity. He does have bilateral lower extremity weakness where is not able to get them the above ground level, partly also because of extensive edema. He is able to wiggle toes and has intact sensation. Input and output suggesting of -3.3 L yesterday. LABORATORY DATA: Suggestive suggestive of a potassium of 3.6, elevated BUN and creatinine, magnesium of 1.9, persistently elevated proBNP. No new microbiological data. No new imaging. ASSESSMENT AND PLAN: 1. Acute on chronic systolic congestive heart failure with ejection fraction of 20%, status post AICD and history of aortic stenosis. Acute exacerbation is likely because of presence of severe congestive heart failure. Continue intravenous diuretics with Lasix drip with close monitoring of input, output and kidney function. Continue home carvedilol, isosorbide. In the future, he may need definitive management of his aortic stenosis. 2. Coronary artery disease status post coronary artery bypass graft twice in the past. Continue aspirin, high-dose atorvastatin. His electrocardiogram had ventricularly paced rhythm on admission. 3. Microcytic anemia due to iron deficiency status post intravenous iron. I will give another dose of iron today. Fecal occult blood test is pending. I explained to him about need for colonoscopy outpatient. Continue MiraLAX and add lactulose for constipation. 4. Subclinical hypothyroidism. The patient was instructed about following up with repeat thyroid tests as an outpatient. 5. History of cerebrovascular accident status post right-sided residual weakness. Continue aspirin and statin; history of BPH, peripheral artery disease, renal artery stenosis status post stent, currently stable. I will continue his home allopurinol for gout. Continue cyclobenzaprine for muscle spasms and [place] for chronic pain. 6. Disposition. The patient remains in [facility] for continued need for Lasix drip. Plan of care discussed with the patient. All of his questions have been answered. I called patient's who is a surrogate decision maker. However, that phone is currently with the patient so, I could not talk with her. cc: Nikolay Manjarrez MD MTDD
[2018-11-24] MEDS ORDERED: CALMOSEPTINE OINTMENT TOP PRN (15:11)
--- NOTE | 2018-11-24 15:12 | CARDIOLOGY PROGRESS NOTE ---
DATE: 11/24/2018 CHIEF COMPLAINT: Swelling. SUBJECTIVE: Mr. Parra stated that he is feeling better. The swelling is going down. He is on Lasix. His ProBNP level is still up in the 15,000-16,000 range. His creatinine is climbing up to 3.0 starting at 2.5. His BUN is also going up from 37 to 40. He denies having any pain. OBJECTIVE: Vital signs: Blood pressure 94/45, pulse 74, respiration 14, temperature 99. General: He is awake, alert, oriented, appears to be chronically ill, pale, slender. HEENT: He has prominent bilateral pulsation on both sides of the neck. Chest: Slightly diminished breath sounds at bases. Heart: Heart sounds regular and rhythmic with a systolic murmur over the aortic area and also over the left sternal border. He has a scar previous sternotomy. Abdomen is nontender, soft. Extremities showed 1-2+ edema bilaterally. He does have contractures in the upper extremities from multiple sclerosis. Neurological exam: Generalized weakness. He cannot sit up in bed by himself. BLOOD WORK: As I said, BUN and creatinine are going up to 40 and 3.0. His magnesium 1.9. His white cell count has not been checked today. Hemoglobin was 8.0 on the . His last chest x- ray was done on admission and it showed improved aeration of the collapse of the right upper lobe. IMPRESSION: 1. A patient who has congestive heart failure. This is systolic, chronic. 2. Severe coronary heart disease, previous bypass surgery, with progression of disease, myocardial infarction. 3. Severe aortic stenosis. 4. Severe pulmonary hypertension. 5. History of multiple sclerosis with significant functional impairment. Wheelchair-bound. 6. Status post automatic implantable cardioverter-defibrillator. 7. Advanced chronic kidney disease. RECOMMENDATION: Continue present medical therapy. The patient's prognosis is really very grim. We will continue present management as outlined Dr. Paras Saavedra. cc: Hugo Garcia MD
[2018-11-24] MEDS: LIPITOR PO SCH (20:02)
[2018-11-24] MEDS: NORCO-5 PO PRN (20:16)
[2018-11-25] MEDS: TYLENOL PO PRN (00:01)
[2018-11-25] MEDS: LASIX 100 MG in NS 90 ML IV SCH ×2 (00:02→21:10)
[2018-11-25] MEDS: NORCO-5 PO PRN ×3 (04:02→19:17)
[2018-11-25] MEDS: HEPARIN SUBQ SCH ×3 (04:03→21:09)
[2018-11-25 06:24] LABS: CALCIUM 8.1 mg/dL (8.8-10.2); CREATININE 2.8 mg/dL (0.7-1.2); POTASSIUM 3.8 mmol/L (3.5-5.1)
[2018-11-25] MEDS: DUONEB (A & A) INH SCH ×3 (08:59→23:24)
--- NOTE | 2018-11-25 09:56 | CARDIOLOGY PROGRESS NOTE ---
DATE: 11/25/2018 CHIEF COMPLAINT: Shortness of breath, swelling. SUBJECTIVE: Mr. Parra seems to be much more comfortable today. He is not having any new symptoms. He is just reading the newspaper and stating that he is feeling really well. No pains at this time. OBJECTIVE: Blood pressure is 90/39, pulse 66, respirations 20, temperature 98.2. Awake, alert, in no distress. HEENT: Prominent jugular veins. Chest: He has some bilateral rhonchi and some crepitans. Heart sounds are regular and rhythmic. There is a prominent systolic murmur over the aortic area and also over the left sternal border. I do not hear any definite gallop. Telemetry shows the presence of pacemaker activity. Abdomen is nontender. Extremities showed no significant edema. Neurologic: He has contractures from multiple sclerosis and weakness. DIAGNOSTIC DATA: His blood work today shows sodium 141, potassium 3.8, BUN is 39, creatinine 2.8. IMPRESSION: 1. The patient is with chronic systolic congestive heart failure. 2. The patient has previous coronary bypass surgery with severe coronary heart disease. 3. He does have a significant component of severe aortic valvular disease. At this point,obviously inoperable. 4. Severe pulmonary hypertension. 5. History of chronic kidney disease which is significant. 6. Status post AICD implantation. 7. 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 RECOMMENDATIONS: At this time, I would continue present therapy. The patient may be reaching the point where he can go home soon. cc: Hugo Garcia MD [facility]
[2018-11-25] MEDS: COREG PO SCH ×3 (10:29→21:12)
[2018-11-25] MEDS: ISORDIL PO SCH ×3 (10:30→17:17)
[2018-11-25] MEDS: MIRALAX PO SCH (10:30)
[2018-11-25] MEDS: LACTULOSE PO SCH ×2 (10:31→21:09)
[2018-11-25] MEDS: ASPIRIN EC PO SCH (10:32)
[2018-11-25] MEDS: PROTONIX PO SCH (10:32)
[2018-11-25] MEDS: ZYLOPRIM PO SCH (10:32)
[2018-11-25] MEDS: CORDARONE PO SCH (10:32)
--- NOTE | 2018-11-25 11:15 | PROGRESS NOTE ---
DATE: 11/25/2018 INTERVAL HISTORY: No acute events overnight. Physical therapy had come by and evaluated the patient. However, patient states that he has been pretty much bedbound since the last few years because of his past history of stroke and progressive decline. He uses a motorized wheelchair. He has not had a bowel movement and I encouraged him about using stool softeners. Currently denies chest pain, shortness of breath. On the monitor, he has a paced rhythm. He is denying any palpitations. VITALS: Temperature 96.1 degrees, pulse 62, blood pressure 90/68. He is saturating 94-96 percent on room air. PHYSICAL EXAMINATION: General: He has a thin and lean body with abdominal ascites and bilateral, especially lower extremity, edema. Oral cavity is moist. Mild conjunctival pallor. No cyanosis, clubbing, or icterus. Lungs: Air entry bilaterally equal with no wheeze or rhonchi. Mild inspiratory bilateral basilar crackles. His S1 is obscured with crescendo-decrescendo murmur affecting entire precordium, accentuated during expiration without rub or gallop. Abdomen: Distended, soft, with flank dullness and shifting dullness. No tenderness. He does have neck vein distention. Bilateral lower extremity edema extending up to thigh. He is alert and oriented x3, and he has a Rosario catheter. Input and output suggests in the last 24 hours he is equal input and output. LAB: His BMP suggests what appears to be chronic kidney disease stage 4. No new microbiological data. No new imaging data. ASSESSMENT AND PLAN: 1. Acute on chronic systolic congestive heart failure with ejection fraction of 20%, status post automatic implantable cardioverter defibrillator and history of aortic stenosis. His acute exacerbation is because of presence of severe congestive heart failure and aortic stenosis. Continue intravenous Lasix drip, home carvedilol, isosorbide. The patient was advised about following up with cardiology for future management of aortic stenosis. 2. Hypotension in the setting of multiple antihypertensive and Lasix drip use. I recommended to hold morning carvedilol and isosorbide dose to the nursing team. 3. History of coronary artery disease, status post coronary artery bypass graft twice in the past. Continue aspirin, high-dose atorvastatin. Electrocardiogram has ventricularly paced rhythm. 4. Microcytic anemia due to iron deficiency, status post intravenous iron 2 doses. I will give him another dose on Monday. Fecal occult blood test is pending. I advised him about following with esophagogastroduodenoscopy and colonoscopy as an outpatient. Continue MiraLAX and lactulose which patient has been declining for constipation. 5. Subclinical hypothyroidism. The patient should get repeat thyroid test as an outpatient. 6. History of cerebrovascular accident, status post right-sided residual weakness, continue aspirin and statin; history of benign prostatic hypertrophy, peripheral artery disease, renal artery stenosis status post stent; currently these issues are stable. Continue home allopurinol for gout and cyclobenzaprine and [place] for chronic pain and muscle spasm. 7. Disposition. Patient remains inside [facility] for Lasix drip. Plan of care discussed with the patient. Yesterday, I was not able to reach out to patient's . I advised the patient that if has any questions, let me know and I would stop by and talk with her in person. cc: Nikolay Manjarrez MD
[2018-11-25] MEDS: LIPITOR PO SCH (21:10)
[2018-11-26] MEDS: NORCO-5 PO PRN ×2 (02:29→19:05)
[2018-11-26] MEDS: HEPARIN SUBQ SCH ×3 (05:21→21:07)
[2018-11-26] MEDS: TYLENOL PO PRN (05:21)
[2018-11-26 05:43] LABS: BASO# 0.02 X1000 (0.0-0.2); BASO% 0.2 % (0.0-0.8); EOS% 1.9 % (0.0-10.0); HEMATOCRIT 25.5 % (42.0-52.0); HEMOGLOBIN 7.7 g/dL (14.0-18.0); IMM GRAN# 0.02 X1000 (0.0-0.04); IMM GRAN% 0.2 % (0.0-0.5); LYMPH# 0.67 X1000 (1.2-3.4); LYMPH% 6.5 % (20.5-51.1); MCH 24.1 PG (27-31); MCHC 30.2 g/dL (33-37); MCV 79.9 FL (81-99); MONO# 0.86 X1000 (0.11-0.59); MONO% 8.4 % (1.7-9.3); MPV 10.2 FL (7.4-10.4); NEUT# 8.51 X1000 (1.4-6.5); NEUT% 82.8 % (42.2-75.2); PLT 161 X1000 (130-400); RBC 3.19 XMIL (4.7-6.1); RDW 20.9 % (11.5-14.5); WBC 10.28 X1000 (4.8-10.8)
[2018-11-26 05:52] LABS: CALCIUM 8.5 mg/dL (8.8-10.2); CREATININE 2.7 mg/dL (0.7-1.2); MAGNESIUM 2.2 mg/dL (1.5-2.7); POTASSIUM 4.1 mmol/L (3.5-5.1)
[2018-11-26] MEDS: DUONEB (A & A) INH SCH ×3 (07:42→23:05)
[2018-11-26] MEDS ORDERED: INFED 250 MG in NS 250 ML IV ONE (07:49)
[2018-11-26] MEDS: COREG PO SCH ×2 (09:07→20:58)
[2018-11-26] MEDS: ISORDIL PO SCH ×3 (09:07→16:08)
[2018-11-26] MEDS: LACTULOSE PO SCH ×2 (09:12→21:08)
[2018-11-26] MEDS: ZYLOPRIM PO SCH (09:12)
[2018-11-26] MEDS: PROTONIX PO SCH (09:13)
[2018-11-26] MEDS: MIRALAX PO SCH (09:13)
[2018-11-26] MEDS: CORDARONE PO SCH (09:13)
[2018-11-26] MEDS: ASPIRIN EC PO SCH (09:13)
[2018-11-26] MEDS: FLEXERIL PO PRN (10:25)
[2018-11-26] MEDS: LASIX IV SCH ×2 (10:25→21:08)
--- NOTE | 2018-11-26 10:41 | PROGRESS NOTE ---
DATE: 11/26/2018 INTERVAL HISTORY: No acute overnight events. The patient has been doing okay, not in any acute distress. Denies chest pain, shortness of breath. We discussed about changing Lasix dosing. We also discussed about potential discharge in the near future. I answered all of all of his questions. I again reiterated the need for getting EGD, colonoscopy, thyroid studies and anemia studies as an outpatient. He verbalized understanding. OBJECTIVE: Vitals: Currently temperature 99.3 degrees, pulse 70, respiratory 15, blood pressure 80/40, saturating 91% on room air. General: Does not appear in any acute distress. Oral cavity: Moist. HEENT: Conjunctival pallor. No cyanosis, clubbing, or icterus. Lungs: Air entry bilaterally equal. No wheeze or rhonchi. Inspiratory crackles bilateral bases. His S1 is obscured with crescendo-decrescendo murmur affecting entire precordium, accentuated during expiration without rub or gallop. Abdomen: Distended, soft with flank dullness and shifting dullness. No tenderness. He does have neck vein distention. Extremities: Bilateral lower extremity edema extending up to thigh, which is more pronounced on the right than on the left, but it is significantly better than on admission. He has a Rosario catheter. LABORATORIES: Suggestive of microcytic anemia, iron deficiency. Normal electrolytes. Elevated BUN, creatinine, chronic kidney disease stage 4 range. His repeat proBNP has been ordered for Monday. ASSESSMENT AND PLAN: 1. Acute on chronic systolic congestive heart failure with ejection fraction of 20%, status post automatic implantable cardioverter defibrillator with history of severe aortic stenosis, which is contributing to his current exacerbation. Change intravenous Lasix drip to intravenous Lasix considering he appears to have been reaching maximum diuresis and as we plan transitioning him. Continue home carvedilol isosorbide with holding parameters. 2. Hypotension in the setting of multiple antihypertensive and Lasix drip use. I changed drip to intravenous Lasix and put holding parameters on carvedilol and isosorbide. 3. History of coronary artery disease, status post coronary artery bypass graft twice in the past. Continue aspirin, high-dose statin. 4. Iron deficiency microcytic anemia. I will give his 3rd dose of intravenous iron today. He has not had a bowel movement to test for fecal occult blood test. I advised him about following up with outpatient iron studies as well as CBC and a fitness/wellness director for need for EGD and colonoscopy for age-appropriate cancer screening, as well as evaluation of gastrointestinal bleed. 5. Subclinical hypothyroidism and does not need treatment. Outpatient repeat thyroid studies were advised to him. 6. History of cerebrovascular accident and symptoms of multiple sclerosis, status post right- sided residual weakness. Continue aspirin, statin; continue allopurinol for history of gout, cyclobenzaprine and [place] for chronic pain and muscle spasm. His peripheral arterial disease, renal artery stenosis, status post stent are chronic issues. 7. Disposition. The patient remains in [facility]. I am transitioning his Lasix drip to intravenous Lasix and later on I will transition him to oral and will plan discharge in next 24 to 48 hours. I would appreciate Cardiology recommendations. Plan of care discussed with the patient. All of his questions have been answered. cc: Nikolay Manjarrez MD
[2018-11-26] MEDS ORDERED: CEPACOL SORE THROAT LOZENGE MT PRN (12:36)
[2018-11-26] MEDS: LIPITOR PO SCH (20:58)
[2018-11-27] MEDS: NORCO-5 PO PRN ×2 (06:00→21:13)
[2018-11-27] MEDS: HEPARIN SUBQ SCH ×3 (06:00→21:13)
[2018-11-27] MEDS: DUONEB (A & A) INH SCH ×3 (07:58→23:24)
[2018-11-27 08:07] LABS: HEMATOCRIT 24.5 % (42.0-52.0); HEMOGLOBIN 7.5 g/dL (14.0-18.0); MCH 24.9 PG (27-31); MCHC 30.6 g/dL (33-37); MCV 81.4 FL (81-99); MPV 10.7 FL (7.4-10.4); RBC 3.01 XMIL (4.7-6.1); RDW 21.1 % (11.5-14.5); WBC 8.82 X1000 (4.8-10.8)
[2018-11-27] MEDS: COREG PO SCH ×2 (08:32→21:14)
[2018-11-27] MEDS: LACTULOSE PO SCH ×2 (08:32→21:14)
[2018-11-27] MEDS: ISORDIL PO SCH ×3 (08:32→17:11)
[2018-11-27] MEDS: LASIX IV SCH (08:37)
[2018-11-27] MEDS: PROTONIX PO SCH (08:37)
[2018-11-27] MEDS: CORDARONE PO SCH (08:37)
[2018-11-27] MEDS: ASPIRIN EC PO SCH (08:37)
[2018-11-27] MEDS: ZYLOPRIM PO SCH (08:37)
[2018-11-27] MEDS: MIRALAX PO SCH (08:38)
[2018-11-27 08:56] LABS: CALCIUM 8.4 mg/dL (8.8-10.2); CREATININE 3.1 mg/dL (0.7-1.2); POTASSIUM 3.9 mmol/L (3.5-5.1)
--- NOTE | 2018-11-27 12:13 | PROGRESS NOTE ---
DATE: 11/27/2018 INTERVAL HISTORY: No acute events overnight. The patient has been feeling okay. Denies any complaints. His fecal occult blood test was positive. On examination, the patient denies any chest pain or shortness of breath. We discussed about changing his Lasix and I answered all of his questions. VITALS: Currently, temperature 98.1 degrees, pulse 64, respiratory rate 18, blood pressure 86/41, saturating 95% on room air. PHYSICAL EXAMINATION: General: Does not appear in any acute distress. Oral cavity is moist. Conjunctival pallor is present. No cyanosis, clubbing, or icterus. Lungs: Air entry bilaterally equal. No wheeze, rhonchi. Inspiratory crackles at bilateral bases. S1 is obscured with crescendo-decrescendo murmur affecting entire precordium, accentuated during expiration, without rub or gallop. Abdomen: Distended. Soft, with bilateral flank tenderness and shifting dullness. He does have mild neck vein distention. Bilateral lower extremity edema extending up to thigh, which is more pronounced on the right than on the left but decreased from admission. He also has a Rosario catheter. On vitals evaluation, he did have one time a temperature of 101 degrees yesterday evening. Input and output suggests -600 mL yesterday and -1.4 L so far today. Rectal Examination: He does not have any external hemorrhoids that I could see. He is not actively bleeding. LABS: Suggestive of microcytic anemia, normal platelet count, hyponatremia, hypochloremia, consistently elevated BUN and creatinine. ASSESSMENT AND PLAN: 1. Acute on chronic systolic congestive heart failure exacerbation with an ejection fraction of 20%, status post automatic implantable cardioverter defibrillator, with a history of severe aortic stenosis with is contributing to his heart failure. Stop intravenous Lasix for now, considering his hypotension and it appears he might have received maximum diuresis. I will transition him to oral Lasix starting tomorrow. Continue home carvedilol, isosorbide with holding parameters. 2. Hypotension in the setting of multiple antihypertensives and Lasix use. I stopped the Lasix. We will start him on oral Lasix tomorrow. I have him on holding parameters with antihypertensive medications. 3. History of coronary artery disease, status post coronary artery bypass graft twice in the past. Continue aspirin and high-dose statin. 4. Iron deficiency, microcytic anemia with positive fecal occult blood test. He is not actively bleeding. This could be related to diverticular or internal hemorrhoidal bleed since he often has chronic constipation. He also had iron deficiency and he has received a total of 750 mg of intravenous iron. Continue pantoprazole once daily. Continue stool softeners to have at least one adequate bowel movement today. I advised him to get outpatient esophagogastroduodenoscopy and colonoscopy. 5. Subclinical hypothyroidism. I advised him to get repeat thyroid studies in the future. 6. History of cerebrovascular accident and symptoms of multiple sclerosis, status post right- sided residual weakness, and contracture of right elbow and right hand at wrist joint. Continue aspirin, statin, allopurinol for history of gout, cyclobenzaprine and [place] for chronic pain and muscle spasm. History of peripheral arterial disease, renal artery stenosis, status post stent are his chronic stable issues. 7. Disposition. He is a little hypotensive so I will monitor him in [facility] for now and if continues to get better, my plan is to transfer him to the medical floor later today or early tomorrow. I am anticipating discharge in the next 24 hours. Plan of care discussed with him. All of his questions have been answered. He will go home. cc: Nikolay Manjarrez MD
[2018-11-27] MEDS: LIPITOR PO SCH (21:13)
[2018-11-28] MEDS: HEPARIN SUBQ SCH ×3 (05:09→20:29)
[2018-11-28] MEDS: DUONEB (A & A) INH SCH ×3 (07:49→23:19)
[2018-11-28] MEDS: ZYLOPRIM PO SCH (08:31)
[2018-11-28] MEDS: CORDARONE PO SCH (08:31)
[2018-11-28] MEDS: PROTONIX PO SCH (08:32)
[2018-11-28] MEDS: ASPIRIN EC PO SCH (08:32)
[2018-11-28] MEDS: MIRALAX PO SCH (08:32)
[2018-11-28] MEDS: COREG PO SCH ×3 (08:33→20:29)
[2018-11-28] MEDS: LACTULOSE PO SCH ×3 (08:33→20:32)
[2018-11-28] MEDS: ISORDIL PO SCH (08:33)
[2018-11-28] MEDS ORDERED: LASIX PO SCH (09:00)
[2018-11-28] MEDS: NORCO-5 PO PRN (13:02)
[2018-11-28 13:10] LABS: HEMATOCRIT 25.9 % (42.0-52.0); MCH 25.6 PG (27-31); MCHC 30.9 g/dL (33-37); MPV 11.1 FL (7.4-10.4); RBC 3.12 XMIL (4.7-6.1); RDW 21.7 % (11.5-14.5); WBC 7.66 X1000 (4.8-10.8)
[2018-11-28 14:36] LABS: URINE SOURCE CATH
[2018-11-28 14:46] LABS: BILIRUBIN URINE NEGATIVE (NEGATIVE); BLOOD URINE MODERATE (NEGATIVE); COLOR YELLOW; GLUCOSE URINE NEGATIVE (NEGATIVE); KETONE URINE NEGATIVE (NEGATIVE); LEUKOCYTES URINE LARGE (NEGATIVE); NITRITE URINE NEGATIVE (NEGATIVE); PROTEIN URINE 50 mg/dL (NEGATIVE); SP GRAVITY URINE 1.006; TURBIDITY URINE HAZY (CLEAR); UROBILINOGEN URINE NORMAL (NORMAL)
[2018-11-28 14:47] LABS: UR EPITHELIAL CELLS <10 /HPF (<10); URINE BACTERIA 4+ /HPF; URINE RBC <10 /HPF (<10); URINE WBC TNTC /HPF (<10)
[2018-11-28] MEDS ORDERED: NS 500 ML IV SCH (16:45)
[2018-11-28] MEDS: HYTRIN PO SCH (17:19)
--- NOTE | 2018-11-28 18:49 | PROGRESS NOTE ---
DATE: 11/28/2018 INTERVAL HISTORY: No acute event overnight. Today morning I had asked for discontinuing Rosario catheter. However, after that patient was not able to void and he had about 900 mL of urine retention and so a 1 time urine catheterization was ordered. The patient was also started on his prostate medication. He continues to be hypotensive but is not symptomatic. SUBJECTIVE: Denies chest pain, shortness of breath. He has significant weakness of bilateral lower extremities. We discussed about dramatic improvement in his weight. I answered all of his questions. OBJECTIVE: Vital signs: Temperature of 98.4 degrees, pulse 63, respiratory rate 16, blood pressure 81/35, MAP of 45, saturating 94% on room air. General: He does not appear in any acute distress. HEENT: Oral cavity is moist. Neck: He does have mild neck vein distention. Lungs: Air entry bilaterally equal. No wheeze, rhonchi, or crackles. Cardiovascular: S1 is obscured with crescendo-decrescendo murmur affecting the entire precordium which is accentuated during expiration without rub or gallop. S2 normal. Abdomen: Distended, soft. Bilateral flank shifting dullness. Extremities: Bilateral lower extremity edema extending up to thigh, which is more pronounced on the right than the left. However, significantly decreased since admission. On previous admission, he had the exact same distribution of edema and ultrasound of the lower extremities was negative for DVT. : He does not have Rosario catheter. Rectal: On my previous rectal examination he did have a smooth, enlarged prostate. LABS: Today suggestive of stable hemoglobin of 8, stable platelet count. He continues to have chronic kidney disease stage 4. ASSESSMENT AND PLAN: 1. Acute urinary retention, likely because of benign prostatic hypertrophy. Resume his home terazosin which I did not initially considering his hypotension. Again, check bladder scan at nighttime. If he retains urine he might need another 1 time straight catheter and if he again remains to be retaining tomorrow, he may need Urology consult for Rosario catheterization or chronic Rosario. 2. Hypotension. This is likely due to intra intravascular volume depletion secondary to Lasix drip he was on and multiple antihypertensive medications. I have held all of his antihypertensive medication as well as Lasix. I am giving him 500 mL of normal saline bolus and we will recheck blood pressure and will assess if he needs further blood pressure. He is not symptomatic of his low blood pressure at the moment. 3. Acute on chronic systolic congestive heart failure exacerbation with ejection fraction of 20%, status post automatic implantable cardioverter defibrillator with history of severe aortic stenosis contributing to his heart failure. He is off intravenous Lasix drip and intravenous Lasix now. It appears he has reached maximum diuresis. I am holding home carvedilol and isosorbide considering his hypotension. 4. History of coronary artery disease, status post coronary artery bypass graft twice in the past. Continue aspirin and high-dose statin. 5. Iron deficiency microcytic anemia with positive fecal occult blood test. He is not actively bleeding. This could be diverticular or internal hemorrhoidal bleed because of his chronic constipation. He has received a total of 750 mg of intravenous iron during this admission. Continue pantoprazole once daily, stool softeners to avoid constipation. I advised him to get outpatient EGD and colonoscopy. 6. Subclinical hypothyroidism. I advised him to repeat thyroid studies in the future. 7. History of cerebrovascular accident and symptoms of multiple sclerosis, status post right- sided upper and lower extremity residual weakness, contracture of right elbow and right hand and at wrist joint. Continue aspirin, statin, allopurinol for the history of gout, [place] for chronic pain. 8. History of peripheral artery disease, renal artery stenosis status post stent are chronic stable issues. 9. Disposition. It was a little late in the day by the time I am seeing him and because of his hypotension, I am giving him intravenous bolus. If his blood pressure is more than 90 systolic tomorrow morning and he is able to spontaneously void, plan is to discharge him home. I discussed with him about starting to think about long-term care facility for future. He also asked me questions regarding arrangement of hospital bed, that someone had contacted him about it. and I told him that I did not initiate that process and likely a [facility] doctor had initiated the process and that is why [facility] had contacted him for the hospital bed placement. Plan of care discussed with the patient's as well. cc: MD JARED Lin
[2018-11-28] MEDS: LIPITOR PO SCH (20:30)
[2018-11-28] MEDS ORDERED: HYTRIN PO SCH (21:00)
[2018-11-29] MEDS: TYLENOL PO PRN (01:43)
[2018-11-29 05:51] LABS: CALCIUM 8.4 mg/dL (8.8-10.2); CREATININE 3.3 mg/dL (0.7-1.2); POTASSIUM 3.9 mmol/L (3.5-5.1)
[2018-11-29] MEDS: HEPARIN SUBQ SCH ×3 (05:57→21:51)
[2018-11-29] MEDS: DUONEB (A & A) INH SCH ×3 (07:34→22:29)
[2018-11-29] MEDS: ZYLOPRIM PO SCH (08:23)
[2018-11-29] MEDS: CORDARONE PO SCH (08:23)
[2018-11-29] MEDS: HYTRIN PO SCH (08:24)
[2018-11-29] MEDS: PROTONIX PO SCH (08:24)
[2018-11-29] MEDS: MIRALAX PO SCH ×2 (08:24→08:31)
[2018-11-29] MEDS: ASPIRIN EC PO SCH (08:24)
[2018-11-29] MEDS: COREG PO SCH ×2 (08:25→21:50)
[2018-11-29] MEDS: LACTULOSE PO SCH ×3 (08:25→21:50)
[2018-11-29] MEDS: NORCO-5 PO PRN ×2 (08:29→15:40)
[2018-11-29] MEDS ORDERED: NS 500 ML IV ONE (14:26)
[2018-11-29] MEDS ORDERED: TEARISOL OPH SOLUTION BOTH EYES PRN (15:34)
--- NOTE | 2018-11-29 16:04 | PROGRESS NOTE ---
DATE: 11/29/2018 SUBJECTIVE: Patient has no major complaints except he is a little dizzy. His blood pressure is still intermittently low though and it has been persistently that way over the last 24 hours. OBJECTIVE: Cardiovascular: Regular rate and rhythm. Pulmonary: Bilateral breath sounds. Clear to auscultation. GI: Soft, nontender, nondistended. Bowel sounds are positive. LABORATORY DATA: Today creatinine is 3.3, which is a slight increase from previous. PROBLEM LIST: 1. Urinary retention with urinary tract infection. He is on antibiotics at this time. 2. Atrial fibrillation. He appears to be rate controlled. I am going to decrease his Coreg because he has persistent hypotension and we will give him a bolus. 3. Congestive heart failure. Appears to be stable. He also has severe aortic stenosis. He is off of Lasix. I would not say he was over diuresed, but he may have had extra diuretics that may be contributing to his current state. 4. Hypothyroidism is stable. 5. Disposition. I am going to continue to monitor him because he is hypotensive. He is also complaining of right foot swelling and pain, but we do not know what his level is. We will continue to follow. Anticipate discharge soon. He is on 2 different doses of Hytrin 5 mg twice a day. I am just going to drop him to 2 mg a day and see how he does. We will monitor in the CICU until things stabilize. DISCHARGE CONDITION: Pending his clinical status. cc: Ken Thompson MD
--- NOTE | 2018-11-29 18:53 | CONSULTATION ---
DATE OF CONSULTATION: 11/29/2018 REQUESTING PHYSICIAN: Ken Thompson MD REASON FOR CONSULTATION: Urinary retention. HISTORY OF PRESENT ILLNESS: A 78-year-old male with longstanding history of BPH, who was admitted on 11/21/2018 with shortness of breath. He was found to have CHF exacerbation. He has had problems with hypotension. He reports longstanding history of BPH. [facility]. He has been on terazosin for BPH. It was held due to concern for hypotension. In the meantime, when Rosario catheter was attempted to be removed, the patient has not been able to void. He has had intermittent catheterization performed twice, but still unable to void. Reportedly he had a postvoid residual of over 900 mL. He reports that prior to hospitalization he did have a somewhat weak and intermittent stream, but he felt like once he started urinating he was able to build it up, and he reports feeling like he emptied to completion. He stated he had baseline nocturia x2. He reported urgency and occasional postvoid dribbling. He denied significant urinary incontinence. He denied gross hematuria. He denied history of recurrent UTIs. PAST MEDICAL HISTORY: CHF, hypertension, hyperlipidemia, coronary artery disease, BPH, renal artery stenosis, abdominal aortic aneurysm, gout, cerebrovascular accident with right-sided hemiparesis, chronic anemia, chronic kidney disease. PAST SURGICAL HISTORY: Coronary artery bypass grafting x2, right renal artery stent, right carotid endarterectomy. ALLERGIES: Sulfa and baclofen. HOME MEDICATIONS: Allopurinol, pravastatin, terazosin 5 mg b.i.d., Coreg, amiodarone, isosorbide mononitrate. SOCIAL HISTORY: Denies tobacco, alcohol use or illicit drug use. FAMILY HISTORY: Negative for malignancies. Positive for coronary artery disease. REVIEW OF SYSTEMS: Reviewed and 12 systems negative with exception of the HPI. PHYSICAL EXAMINATION: T 99.8 degrees, P 70, BP 89/38. General: No acute distress. Pleasant male. HEENT: Normocephalic, atraumatic. Cardiovascular: Regular rhythm. Pulmonary: Bilateral breath sounds. Abdomen scaphoid, nontender to palpation. Back: No CVA tenderness. : Meatus is patent. Redundant foreskin with mild penile shaft edema. Testes descended bilaterally, atrophic, without masses. Scrotum has an approximately 2 x 2 cm area of erythema consistent with superficial skin breakdown. The patient states he is aware of that. Perineal has structural integrity intact. Digital rectal examination revealed an approximately 50 g gland which is somewhat nodular, but without a discrete lump. Dermatologic: No obvious skin rashes. Neurologic: Alert and oriented x3. Psychiatric: Appropriate mood and affect. LABORATORY DATA: White cell count is 8000, hematocrit 26. Creatinine is 3.1. Urinalysis had bacteria, white cells and moderate amount of blood. Microbiology: Urine culture is growing gram-negative rods from 11/28/2018. DIAGNOSTIC DATA: Pertinent images: None. ASSESSMENT: A 78-year-old male with longstanding history of benign prostatic hypertrophy who now has urinary retention, likely secondary to medications that were stopped which was at the time necessary, given his hypotension, as well as possibly urinary tract infection as evident by the recent urine sample. I have discussed with the patient that his terazosin was restarted and it may take 2-3 days for it to start working. We discussed that he would benefit from addition of finasteride 5 mg at bedtime, given the size of his prostate. Side effects of finasteride were explained. I have discussed in the interim the patient could have a Rosario catheter placed, have intermittent catheterization performed 3 times a day. He wants to have indwelling Rosario catheter placed for now. PLAN: 1. I agree with resuming terazosin. 2. Finasteride 5 mg at bedtime. 3. Rosario catheter to be inserted. 4. We will attempt voiding trial in about 2-3 days. 5. I will follow. cc: Sherman Thompson MD
[2018-11-29] MEDS: LIPITOR PO SCH (21:51)
[2018-11-29] MEDS: CIPRO PO SCH (21:51)
[2018-11-30] MEDS: HEPARIN SUBQ SCH (04:11)
[2018-11-30] MEDS: TYLENOL PO PRN (04:13)
[2018-11-30 06:32] LABS: BASO# 0.01 X1000 (0.0-0.2); BASO% 0.2 % (0.0-0.8); EOS# 0.22 X1000 (0.0-0.7); EOS% 3.3 % (0.0-10.0); HEMATOCRIT 20.5 % (42.0-52.0); HEMOGLOBIN 6.1 g/dL (14.0-18.0); LYMPH# 0.49 X1000 (1.2-3.4); LYMPH% 7.5 % (20.5-51.1); MCH 24.7 PG (27-31); MCHC 29.8 g/dL (33-37); MONO# 0.71 X1000 (0.11-0.59); MONO% 10.8 % (1.7-9.3); NEUT# 5.14 X1000 (1.4-6.5); NEUT% 78.2 % (42.2-75.2); PLT 181 X1000 (130-400); RBC 2.47 XMIL (4.7-6.1); RDW 21.9 % (11.5-14.5); WBC 6.57 X1000 (4.8-10.8)
[2018-11-30 06:51] LABS: CALCIUM 8.3 mg/dL (8.8-10.2); CREATININE 3.4 mg/dL (0.7-1.2); POTASSIUM 3.8 mmol/L (3.5-5.1)
[2018-11-30] MEDS: DUONEB (A & A) INH SCH ×3 (07:48→23:40)
[2018-11-30] MEDS ORDERED: HYTRIN PO SCH (09:00)
[2018-11-30] MEDS: ZOFRAN IV PRN ×2 (09:09→14:57)
[2018-11-30] MEDS: PROTONIX PO SCH (11:11)
[2018-11-30] MEDS: LACTULOSE PO SCH ×2 (11:11→20:09)
[2018-11-30] MEDS: CORDARONE PO SCH (11:11)
[2018-11-30] MEDS: PROSCAR PO SCH (11:11)
[2018-11-30] MEDS: ZYLOPRIM PO SCH (11:12)
[2018-11-30] MEDS: COREG PO SCH (11:12)
[2018-11-30] MEDS: ASPIRIN EC PO SCH (11:12)
[2018-11-30] MEDS: MIRALAX PO SCH (11:13)
[2018-11-30] MEDS: CIPRO PO SCH (11:13)
[2018-11-30] MEDS ORDERED: NS 250 ML IV ONE (12:05)
[2018-11-30] MEDS ORDERED: LASIX IV SCH ×2 (12:15→15:00)
[2018-11-30] MEDS ORDERED: NS 500 ML IV SCH (12:30)
--- NOTE | 2018-11-30 12:45 | PROGRESS NOTE ---
DATE: 11/30/2018 SUBJECTIVE: The patient has no focal complaints. OBJECTIVE: Vital Signs: Blood pressure currently is 68/34, heart rate is 72, respiratory rate is 16, temperature 97.8 degrees, saturations 100% on 2 L. Cardiovascular: Regular rate and rhythm. Pulmonary: Bilateral breath sounds. Clear to auscultation. Gastrointestinal: Soft, nontender, nondistended. Bowel sounds are positive. Extremities: No clubbing or cyanosis. No peripheral edema. Neurological: Nonfocal. LABORATORY DATA: His H and H has dropped precipitously to 6 and 20, that is from 8 and 25 two days ago. PROBLEM LIST: 1. Upper gastrointestinal bleed, unclear source. He started having hematemesis. He is hypotensive. His hemoglobin and hematocrit has dropped. I have discussed with Dr. Amado, we are going to give him 1 unit of blood and see how he does and keep 1 ahead. I have ordered Protonix drip, stopped his aspirin and his anticoagulation and we will follow. 2. Congestive heart failure exacerbation appears to be improved. He has got severe aortic stenosis. We are going to monitor. I am holding any antihypertensives right now because he is so hypotensive. 3. Atrial fibrillation appears to be rate controlled. We will try to continue his Coreg at the very least assuming his blood pressure can handle it. 4. Hypothyroidism is stable. 5. Severe benign prostatic hypertrophy. I will have to hold Hytrin until his blood pressure stabilizes. DISPOSITION: If his blood pressure does not improve, we will have to consider transferring him to the unit, that may be happening soon. cc: Ken Thompson MD
[2018-11-30] MEDS ORDERED: DOPAMINE 800 MG/D5W 800 MG/500 ML IV.SOLN IV SCH (13:45)
[2018-11-30] MEDS: PROTONIX 80 MG in NS 80 ML IV SCH ×2 (13:53→23:01)
[2018-11-30] MEDS ORDERED: REGLAN IV ONE (15:20)
--- NOTE | 2018-11-30 15:37 | EKG Report ---
Test Performed on : 11/30/2018 3:24:14 PM Test Reason : chest pain Blood Pressure : / mmHG Vent. Rate : 107 BPM Atrial Rate : 028 BPM P-R Int : 000 ms QRS Dur : 180 ms QT Int : 458 ms P-R-T Axes : 000 268 089 degrees QTc Int : 611 ms Ventricular-paced rhythm Abnormal ECG When compared with ECG of 23-NOV-2018 06:37, Vent. rate has increased BY 39 BPM Unconfirmed Result
--- NOTE | 2018-11-30 15:44 | Extremity Venous Study ---
PROCEDURE NAME: Venous U/S Right Leg - 11/29/2018 [employer]: Rose Marie. REQUESTING PHYSICIAN: Dr. Thompson. INDICATIONS: Calf pain. FINDINGS: Deep superficial veins the right lower extremity visualized. The right greater saphenous vein is surgically absent. There is otherwise pulsatile forward flow with no evidence intraluminal thrombus, pulsatility would suggest possible central venous hypertension. SUMMARY: No deep or superficial venous thrombosis seen in right lower extremity. cc: MD Ken Gasca MD
[2018-11-30] MEDS ORDERED: DIPRIVAN 1% ONE (15:52)
[2018-11-30] MEDS ORDERED: QUELICIN (DOSE) ONE (15:53)
[2018-11-30] MEDS ORDERED: XYLOCAINE-MPF 2% ONE (15:53)
--- NOTE | 2018-11-30 15:53 | GASTROENTEROLOGY CONSULTATION ---
DATE: 11/30/2018 REASON FOR CONSULTATION: Hematemesis. HISTORY OF PRESENT ILLNESS: Mr. Mekhi Parra is a 78-year-old gentleman with past medical history of hypertension, hyperlipidemia, CAD status post CABG x2, AAA, prior stroke with right-sided weakness, chronic anemia, who was admitted with acute on chronic systolic heart failure. He has EF of 20%. He upon admission when he came in on 11/21 he was diuresed aggressively. Today he developed acute onset hematemesis with blood clots and bright red blood. He has been noted to be more hypotensive today with blood pressure systolics 70s over 30s as low as 60s over 30s. Heart rate is in the 70s currently, he is afebrile. He is currently on a PPI drip and is receiving 1 unit of packed red blood cells. He reports some nausea and abdominal discomfort. No melena. His shortness of breath is improved. He does have some substernal chest pain. REVIEW OF SYSTEMS: As per HPI, otherwise 12 point review of systems is negative. PAST MEDICAL HISTORY: Hypertension, hyperlipidemia, coronary artery disease status post CABG, prior CVA with right-sided weakness, chronic anemia, prior carotid endarterectomy, renal artery stents, gout. PAST SURGICAL HISTORY: Status post pacemaker, CABG x2, right renal artery stent. MEDICATIONS: Allopurinol, pravastatin, terazosin, carvedilol, amiodarone, isosorbide mononitrate. He is not on NSAIDs or aspirin although he has been on aspirin and heparin here in the hospital. ALLERGIES: To sulfa and baclofen. FAMILY HISTORY: Mother had colon cancer. SOCIAL HISTORY: Remote smoker. He does drink a beer occasionally. No illicit drug use. PHYSICAL EXAMINATION: Vital signs: Temperature 98.1 degrees, heart rate 76, blood pressure 68/35, O2 saturation 96% on 2 L nasal cannula. General: The patient is awake, alert, in no acute distress. HEENT: Sclerae anicteric. Moist mucous membranes. Neck: No JVD. No lymphadenopathy. Cardiac: Regular rate and rhythm. He has a 2/6 systolic murmur. Lungs: Clear to auscultation bilaterally. Abdomen: Soft, nontender, nondistended. Normoactive bowel sounds. No rebound or guarding. Extremities: No clubbing, cyanosis, or edema. Neuro: He does have some right upper extremity atrophy and weakness with contracture. LABS: White count of 6.5, hemoglobin 6.1 from 8.0, platelets of 181,000. Sodium 137, potassium 3.8, chloride 98, bicarb 26, BUN of 68, creatinine of 3.4 from baseline of 2.5 to 3, glucose 181. Chest x-ray on 11/21 showed improved aeration of opacification/collapse of the right upper lobe. ASSESSMENT/PLAN: Mr. Mekhi Parra is a 78-year-old gentleman with history of coronary artery disease, peripheral vascular disease and congestive heart failure who presented with congestive heart failure exacerbation. Gastroenterology was consulted for new onset hematemesis today with acute on chronic anemia. His hemoglobin today is 6.1 from 7.7 on admission. He is relatively hypotensive without significant tachycardia. He is not beta blocked but is on amiodarone. He is currently receiving 1 unit of packed red blood cells and is on a PPI drip. He is also on dopamine for hypotension. We will keep him NPO which he has been since this morning for diagnostic EGD this evening. We will trend hemoglobin and hematocrit every 6 to 8 hours. Transfuse for hemoglobin between 7 and 8. ICU transfer is pending. We will resuscitate him with IV fluids. Two large bore IVs. Hold heparin and aspirin. Differential includes esophagitis, peptic ulcer disease, gastritis, arterial venous malformation, malignancy. Other issues include congestive heart failure which has improved since admission, acute kidney injury on chronic kidney disease, atrial fibrillation rate controlled. He was on Coreg earlier, this is been held currently on amiodarone. Hypothyroidism stable. Thank you for this consult. Will follow with you.
[2018-11-30] MEDS ORDERED: AMIDATE ONE (15:58)
[2018-11-30] MEDS ORDERED: NEO-SYNEPHRINE ONE (16:00)
[2018-11-30] MEDS ORDERED: SODIUM CHLORIDE 0.9% 10 ML ONE (16:00)
[2018-11-30] MEDS ORDERED: EPINEPHRINE SYRINGE ONE (16:17)
[2018-11-30] MEDS ORDERED: ZEMURON ONE (16:26)
[2018-11-30] MEDS ORDERED: VERSED ONE (16:29)
--- NOTE | 2018-11-30 17:17 | OPERATIVE NOTE ---
PROCEDURE DATE: 11/30/2018 EXAM: Upper gastrointestinal endoscopy. PROVIDER: Efren Amado MD INDICATIONS: Hematemesis. MEDICATIONS: General anesthesia. DESCRIPTION OF PROCEDURE: Prior to the procedure, a history and physical was performed, and the patient's medications and allergies were reviewed. The patient's tolerance of previous anesthesia was also reviewed. The risks and benefits of the procedure and sedation options and risks were discussed with the patient. All questions were answered. Informed consent was obtained. After reviewing the risks and benefits, the patient was deemed in satisfactory condition to undergo the procedure. After the endoscope was passed under direct visualization, throughout the procedure the patient's blood pressure, pulse, and oxygen saturations were monitored continuously. The endoscope was introduced through the mouth and advanced to the second part of the duodenum. The upper GI endoscopy was accomplished without difficulty. The patient tolerated the procedure well. COMPLICATIONS: No immediate complications. ESTIMATED BLOOD LOSS: 300 mL. FINDINGS: In the mid esophagus, approximately 25 cm from the incisors, there was a small nipple sign concerning for submucosal vessel. This was injected with 2 mL of epinephrine with adequate blanching. An Endo clip was placed to prevent bleeding. In the distal esophagus, there was fresh bright red blood with copious amounts of clot, which were removed with suction and pulling out the clots from the esophagus. There were no esophageal varices. Within the stomach, in the gastric fundus was copious amounts of clot and food. We were unable to clear the fundus. The antrum and duodenal bulb was normal. The 2nd portion of the duodenum also revealed clots with no evidence of active bleeding or ulcers. IMPRESSION: - Suspected esophageal vessel. Does not appear to be a varix, status post epinephrine and Endoclip placement - Blood found in the esophagus, fundus, and second portion of the duodenum.= RECOMMENDATIONS: - Keep n.p.o. No NG or OG tube placement. - Continue to trend hemoglobin and hematocrit every 6 to 8 hours. - Transfuse as needed to maintain a hemoglobin of 7 to 8. - Continue fluid resuscitation. - Maintain MAPS of 60. - Continue PPI drip. - We will plan for repeat EGD with anesthesia tomorrow given the poor visualization - Keep the patient intubated overnight. We will follow with you. Please call with questions [facility]
[2018-11-30] MEDS ORDERED: DIPRIVAN 1% 1,000 MG/100 ML BOTTLE ONE (17:29)
[2018-11-30] MEDS: DIPRIVAN 1% 1,000 MG/100 ML BOTTLE IV SCH ×2 (17:29→23:22)
[2018-11-30] MEDS ORDERED: DIPRIVAN 1% 1,000 MG/100 ML BOTTLE IV SCH (17:30)
[2018-11-30] MEDS: LEVOPHED 8 MG in D5 1/2 NS 250 ML IV SCH (17:48)
[2018-11-30 18:18] LABS: ALLEN TEST NO; BE 0.1 mmoll (-3.0-3.0); BLOOD TYPE ARTERIAL; METHB 0.9 % (0.0-1.5); O2(CT) 11.4 mL/dL (15.0-23.0); O2HB 96.5 % (95.0-99.0); PO2(98.6) 121 mmHg (60-100); SAMPLE BLOOD; SAO2 99.6 % (95.0-100.0); SRATE 14 BPM; THB 8.2 g/dL (11.5-17.4); TVOL 550 mL; pH(98.6) 7.31 (7.35-7.45)
[2018-11-30 18:19] LABS: BASO# 0.06 X1000 (0.0-0.2); BASO% 0.4 % (0.0-0.8); EOS# 0.06 X1000 (0.0-0.7); EOS% 0.4 % (0.0-10.0); HEMATOCRIT 28.2 % (42.0-52.0); HEMOGLOBIN 8.7 g/dL (14.0-18.0); IMM GRAN# 0.12 X1000 (0.0-0.04); IMM GRAN% 0.8 % (0.0-0.5); LYMPH# 1.04 X1000 (1.2-3.4); LYMPH% 6.6 % (20.5-51.1); MCHC 30.9 g/dL (33-37); MCV 84.2 FL (81-99); MONO% 9.5 % (1.7-9.3); NEUT# 13.07 X1000 (1.4-6.5); NEUT% 82.3 % (42.2-75.2); PLT 245 X1000 (130-400); RBC 3.35 XMIL (4.7-6.1); RDW 19.9 % (11.5-14.5); WBC 15.85 X1000 (4.8-10.8)
[2018-11-30 18:21] LABS: MODALITY VENTILATOR; PCO2(98.6) 53 mmHg (35-45)
[2018-11-30 18:22] LABS: ALB/GLOB RATIO 1.1; ALBUMIN 2.9 g/dL (3.5-5.0); CALCIUM 8.1 mg/dL (8.8-10.2); CREATININE 3.8 mg/dL (0.7-1.2); MAGNESIUM 2.1 mg/dL (1.5-2.7); POTASSIUM 5.2 mmol/L (3.5-5.1); TOTAL PROTEIN 5.5 g/dL (6.3-8.3)
--- NOTE | 2018-11-30 18:24 | Diag Imaging Result Doc PS360 ---
CHEST-PORTABLE - 11/30/2018 INDICATION: vent COMPARISON: 11/21/2018 FINDINGS: There is an endotracheal tube in good position at T5. Stable right-sided pacemaker. Stable surgical changes to the heart. There is worsening bibasilar infiltrate/pulmonary edema. There are also small to moderate bibasilar pleural effusions. IMPRESSION: Good endotracheal tube placement. Worsening in the lungs. Electronically signed by Man Lucia 11/30/2018 6:21 PM
[2018-11-30 18:31] LABS: LYMPHS 8 % (21-51); MONO 6 % (1-9); SEGS 86 % (42-75)
[2018-11-30] MEDS ORDERED: NS 1,000 ML IV ONE (19:47)
[2018-11-30] MEDS: LEVAQUIN 500 MG/D5W 500 MG/100 ML IVPB IV SCH ×2 (20:10→22:06)
[2018-11-30] MEDS: LIPITOR PO SCH (20:10)
[2018-11-30] MEDS: SOLU-CORTEF IV SCH (20:18)
--- NOTE | 2018-11-30 20:25 | PULMONOLOGY CONSULTATION ---
DATE: 11/30/2018 REASON FOR CONSULTATION: Respiratory failure. HISTORY OF PRESENT ILLNESS: Mr. Parra is a 78-year-old white male (nonsmoker by intake nursing?) with extensive vascular disease (see outlined below ) with prior cardiac artery bypass grafting, ischemic cardiomyopathy with an ejection fraction of 20%, severe aortic stenosis, severe pulmonary hypertension who presented to the hospital and was admitted 11/21/2018 with an exacerbation of his heart failure. He was being diuresed. Today he developed recurrent hematemesis and went for an emergent upper gastrointestinal endoscopy. The patient required intubation for the procedure. An esophageal vessel was clipped but it was not 100% clear that this was the site of his bleeding. The patient was brought back to the Intensive Care Unit on mechanical ventilation. He is hypotensive and remains on vasopressors. He has had a large amount of blood suctioned from his endotracheal tube consistent with an aspiration from the active bleeding. PAST MEDICAL HISTORY: 1. Coronary artery disease. The patient has undergone 2 separate bypass grafting procedures. 2. Coronary artery stenting. 3. Severe aortic stenosis. 4. Ischemic cardiomyopathy with ejection fraction of 20%. 5. History of CVA. 6. Status post carotid artery stent. 7. Chronic kidney disease status post renal artery stenting. 8. Heart block status post pacemaker placement and AICD placement. 9. Hypertension. 10. Dyslipidemia. 11. Multiple sclerosis. SOCIAL HISTORY: Patient is retired [employer]. Occasional alcohol use. No tobacco use listed. FAMILY HISTORY: Positive for heart disease. REVIEW OF SYSTEMS: Limited. PHYSICAL EXAMINATION: Reveals a chronically ill-appearing male who was sedated on mechanical ventilation. He is currently on a combination of Levophed and dopamine. Blood pressure 93/54, heart rate 89 and paced, respiratory rate 18, oxygen saturation 95%.HEENT: Pupils are equal. Oropharynx appears clear with residual blood around his teeth. Neck: Supple. Chest: Reveals scattered rhonchi bilaterally. Cardiac: Regular rate. Normal S1, normal S2 with 3 to 4/6 systolic ejection murmur right upper sternal border. Abdomen: Mildly distended with increased tympany. Extremities: Reveal evidence of slight contracture in the right wrist with some muscle wasting in the right forearm and 1+ peripheral edema in the right lower extremity. LABORATORIES: Chest x-ray reveals endotracheal tube in good position. He has mild cardiomegaly. He has volume loss bilaterally likely related to pleural effusions. There appears to be some worsening compared to 11/21/2018. Hemoglobin 8.7, platelet count 245,000, white blood count 15.9. Sodium 137, potassium 5.2, chloride 96, bicarbonate 24, BUN 71, creatinine 3.8. Cortisol 15.2. INR on admission was normal at 1.2. Arterial blood gas at 1810 revealed pH 7.31, pCO2 of 53, PO2 of 121 with a lactate of 2.4. IMPRESSION: A 78-year-old with acute hypoxemic respiratory failure, acute hypercapnic respiratory failure, aspiration pneumonia associated with active gastrointestinal bleeding, gastrointestinal bleeding, ischemic cardiomyopathy, hemodynamic shock likely related to blood loss and to ischemic cardiomyopathy, ischemic cardiomyopathy, borderline cortisol level given the current presentation, critical aortic stenosis. RECOMMENDATION: 1. Continue ventilatory support. 2. The patient was lavaged repeatedly until his airway suctioned clear by this practitioner. 3. Send sputum for C and S. 4. 1 L fluid bolus is a challenge given his ongoing hypotension. 5. Serial hemoglobin levels. 6. Anticipate followup EGD tomorrow if he stabilizes. 7. Prognosis is poor given problems listed above. End of life discussions recommended with family when available. Critical Care Time: 95minutes cc: Daron Chen MD MTDD
[2018-12-01] MEDS: REGLAN IV SCH ×5 (00:16→23:13)
[2018-12-01 01:00] LABS: HEMATOCRIT 20.2 % (42.0-52.0); HEMOGLOBIN 6.5 g/dL (14.0-18.0)
[2018-12-01] MEDS: LEVOPHED 8 MG in D5 1/2 NS 250 ML IV SCH ×5 (01:23→23:12)
[2018-12-01] MEDS ORDERED: NS 250 ML ONE (01:42)
[2018-12-01] MEDS: SOLU-CORTEF IV SCH ×3 (04:22→20:50)
[2018-12-01 05:17] LABS: ALLEN TEST YES; BE -0.9 mmoll (-3.0-3.0); BLOOD TYPE ARTERIAL; HCO3-(ACT) 24.2 mmoll (20.0-26.0); METHB 1.1 % (0.0-1.5); O2(CT) 12.9 mL/dL (15.0-23.0); O2HB 96.4 % (95.0-99.0); PCO2(98.6) 36 mmHg (35-45); PO2(98.6) 134 mmHg (60-100); SAMPLE BLOOD; SAO2 99.1 % (95.0-100.0); SRATE 14 BPM; THB 9.3 g/dL (11.5-17.4); TVOL 600 mL; pH(98.6) 7.42 (7.35-7.45)
[2018-12-01 06:31] LABS: BASO# 0.04 X1000 (0.0-0.2); BASO% 0.1 % (0.0-0.8); EOS# 0.02 X1000 (0.0-0.7); EOS% 0.1 % (0.0-10.0); HEMATOCRIT 29.5 % (42.0-52.0); HEMOGLOBIN 9.2 g/dL (14.0-18.0); IMM GRAN# 0.14 X1000 (0.0-0.04); IMM GRAN% 0.5 % (0.0-0.5); LYMPH# 0.94 X1000 (1.2-3.4); LYMPH% 3.2 % (20.5-51.1); MCH 24.8 PG (27-31); MCHC 31.2 g/dL (33-37); MCV 79.5 FL (81-99); MONO# 1.89 X1000 (0.11-0.59); MONO% 6.5 % (1.7-9.3); MPV 11.1 FL (7.4-10.4); NEUT# 26.27 X1000 (1.4-6.5); NEUT% 89.6 % (42.2-75.2); PLT 279 X1000 (130-400); RBC 3.71 XMIL (4.7-6.1)
[2018-12-01 06:50] LABS: PROTIME 14.1 Seconds (11.0-16.0)
[2018-12-01 06:59] LABS: MODALITY VENTILATOR
[2018-12-01 07:14] LABS: ALB/GLOB RATIO 1.2; ALBUMIN 2.9 g/dL (3.5-5.0); CALCIUM 8.2 mg/dL (8.8-10.2); CREATININE 3.8 mg/dL (0.7-1.2); POTASSIUM 4.9 mmol/L (3.5-5.1); TOTAL BILIRUBIN 1.28 mg/dL (0.20-1.00); TOTAL PROTEIN 5.4 g/dL (6.3-8.3)
[2018-12-01 07:28] LABS: PHOSPHORUS 4.1 mg/dL (2.7-4.5)
[2018-12-01] MEDS: ATIVAN IV PRN ×4 (07:35→20:51)
[2018-12-01] MEDS: DUONEB (A & A) INH SCH ×3 (07:54→23:08)
[2018-12-01 07:59] LABS: ANISOCYTOSIS 2+; BANDS 4 % (0-1); HYPOCHROM 1+; LYMPHS 4 % (21-51); MONO 4 % (1-9); POIKILOCYTOSIS 1+; SEGS 88 % (42-75)
--- NOTE | 2018-12-01 08:31 | Diag Imaging Result Doc PS360 ---
EXAM: CHEST-PORTABLE - 12/01/2018 HISTORY: respiratory failure TECHNIQUE: Portable chest COMPARISON: 11/30/2018 FINDINGS: Endotracheal tube remains in place. Heart size appears upper normal. There is been interval decrease in right basilar opacity. There is been some decrease in left basilar opacity. There is some residual ill-defined left lower lung infiltrates/edema. There are small bilateral pleural effusions. There is no pneumothorax identified. IMPRESSION: Decrease in right basilar opacity. Some decrease in left basilar opacity. There is some residual left lower lung infiltrate/edema. Electronically signed by Chester Forrest 12/01/2018 8:29 AM
[2018-12-01] MEDS: LACTULOSE PO SCH ×2 (08:51→20:50)
[2018-12-01] MEDS: MIRALAX PO SCH (08:51)
[2018-12-01] MEDS: CORDARONE PO SCH (08:51)
[2018-12-01] MEDS: PROSCAR PO SCH (08:52)
[2018-12-01] MEDS: PROTONIX 80 MG in NS 80 ML IV SCH ×2 (09:43→20:52)
[2018-12-01] MEDS ORDERED: NORCURON IV ONE (10:29)
[2018-12-01] MEDS ORDERED: DIPRIVAN 1% 1,000 MG/100 ML BOTTLE IV SCH (10:30)
[2018-12-01] MEDS ORDERED: NS 1,000 ML IV ONE (12:38)
[2018-12-01] MEDS ORDERED: ERYTHROMYCIN 500 MG in NS 250 ML IV ONE (13:30)
--- NOTE | 2018-12-01 13:57 | OPERATIVE NOTE ---
PROCEDURE DATE: 12/01/2018 EXAM: Upper GI endoscopy. PROVIDER: Efren Amado MD. INDICATIONS: Upper GI bleeding, hematemesis. MEDICATIONS: General anesthesia. PROCEDURE: Prior to the procedure, a history and physical was performed and patient medication, allergies were reviewed, the patient's tolerance of previous anesthesia was also reviewed. The risks and benefits of the procedure and sedation options and risks were discussed with the patient's family. All questions were answered and informed consent was obtained. After reviewing the risks and benefits, the patient was deemed in satisfactory condition to undergo the procedure. The endoscope was passed under direct visualization. Throughout the procedure the patient's blood pressure, pulse and oxygen saturations were monitored continuously. The endoscope was introduced in the mouth and advanced to the second part of the duodenum. The upper GI endoscopy was accomplished without difficulty. The patient tolerated the procedure. COMPLICATIONS: No immediate complications. ESTIMATED BLOOD LOSS: Minimal. FINDINGS: There was copious amounts of fibrous clot found in the esophagus. A Endoclip was found in the mid-esophagus. There were no signs of active bleeding. The distal esophagus was negative for varices. Within the stomach, there was copious amounts of old clotted blood in the fundus. This was unable to be cleared with suctioning. The antrum was normal as well as the duodenum. IMPRESSION: 1. Endoclip found in the mid-esophagus. 2. Copious amounts of clotted blood seen in the esophagus as well as fundus. There did not appear to be any active bleeding 3. Normal duodenum RECOMMENDATIONS: - Continue supportive care and trending hemoglobin and hematocrit every 6 to 8 hours. - Transfuse as needed to maintain hemoglobin between 7 and 8. - Continue resuscitation and pressors to maintain MAPs greater than 60. - If the patient continues to have downtrending hemoglobin, recommend surgical evaluation. - The findings and recommendations were discussed with the patient's family. We will follow with you. Please call with any questions or concerns. [facility]
[2018-12-01] MEDS ORDERED: ERYTHROCIN NG SCH (16:15)
--- NOTE | 2018-12-01 16:34 | Diag Imaging Result Doc PS360 ---
EXAM: KUB ABDOMEN - 12/01/2018 HISTORY: ileus TECHNIQUE: Portable AP spine abdomen COMPARISON: None. FINDINGS: There is substantial gaseous distention of the stomach. There is also some apparent retained debris in the stomach. There is some additional generalized gaseous bowel distention. There is a moderate amount of retained fecal debris in the colon. IMPRESSION: Substantial gaseous distention of stomach. Additional nonspecific generalized gaseous bowel distention. Possible constipation. Electronically signed by Chester Forrest 12/01/2018 4:32 PM
[2018-12-01] MEDS ORDERED: ZITHROMAX 500 MG/NS 500 MG/250 ML IVPB IV ONE (17:00)
[2018-12-01] MEDS ORDERED: E.E.S. 200 SUSPENSION NG SCH (17:00)
--- NOTE | 2018-12-01 17:46 | PROGRESS NOTE ---
DATE: 11/22/2018 SUBJECTIVE: The patient has no complaints. He is intubated, sedated. He developed progressive upper GI bleed yesterday. He had some hematemesis in the morning and then subsequently had further hematemesis. He came in for evaluation. OBJECTIVE: Vital Signs: His blood pressure is low at 97/47. Heart rate 65, respiratory rate 17, temperature 98.8 degrees. That is on Levophed. Cardiovascular: Regular rate and rhythm. Pulmonary: Bilateral breath sounds. Clear to auscultation. GI/Abdomen: Soft, nontender. Bowel sounds are positive. He is pretty distended, with tympany throughout Extremity: No clubbing or cyanosis. Lymphatic: No peripheral edema. Neurological: Nonfocal. LABORATORY DATA: White count 29, hemoglobin and hematocrit 9 and 29, platelets 279. Has a pH of 7.42, pCO2 of 36, PaO2 of 134. BUN and creatinine 73 and 3.8. PROBLEM LIST: 1. Upper gastrointestinal bleed. Repeated scope today. The Endo clip was there from yesterday, with copious amounts of clotted blood but no active bleeding and no varices. So, the plan is to continue supportive care, and if the hemoglobin and hematocrit continue to drop, they discussed a surgical consult, so we will monitor hemoglobin and hematocrit and follow. 2. Acute respiratory failure related to multiple issues. He is on the ventilator. Pulmonary is following. Extubate at their discretion. It does not look like he is planning to do a repeat scope. 3. Congestive heart failure exacerbation with severe aortic stenosis. We will continue to follow closely. He is on low-dose vasopressors. 4. Atrial fibrillation. Again, he is rate controlled. Continue to monitor. 5. Hypothyroidism, stable. DISPOSITION: 1. Pending his clinical status. We discussed code status. Family is full code press. He has had a long history of multiple issues, but in any case, he is improved. He had his first heart attack or intervention in his mid-30s. 2. Klebsiella urinary tract infection. He is on Levaquin. His white count jumped up significantly, but I am not entirely sure that this is not related to stress reaction. He has some bands. We will leave him on the Levaquin for now. 3. Acute on chronic renal failure. Aware of diagnosis. Continue to follow. cc: Ken Thompson MD
[2018-12-01 18:05] LABS: HEMATOCRIT 30.5 % (42.0-52.0); HEMOGLOBIN 9.8 g/dL (14.0-18.0)
[2018-12-01] MEDS: LEVAQUIN 500 MG/D5W 500 MG/100 ML IVPB IV SCH (20:51)
[2018-12-01] MEDS: LIPITOR PO SCH (20:53)
[2018-12-02] MEDS: PROTONIX 80 MG in NS 80 ML IV SCH ×2 (05:06→15:21)
[2018-12-02] MEDS: SOLU-CORTEF IV SCH ×3 (05:06→19:58)
[2018-12-02] MEDS: REGLAN IV SCH (05:06)
[2018-12-02 05:32] LABS: ALLEN TEST YES; BE -3.7 mmoll (-3.0-3.0); BLOOD TYPE ARTERIAL; METHB 1.3 % (0.0-1.5); O2(CT) 14.3 mL/dL (15.0-23.0); O2HB 95.8 % (95.0-99.0); PCO2(98.6) 32 mmHg (35-45); PO2(98.6) 130 mmHg (60-100); SAMPLE BLOOD; SAO2 97.9 % (95.0-100.0); SRATE 14 BPM; THB 10.4 g/dL (11.5-17.4); TVOL 600 mL; pH(98.6) 7.41 (7.35-7.45)
[2018-12-02 05:33] LABS: MODALITY VENTILATOR
[2018-12-02 06:17] LABS: BASO# 0.01 X1000 (0.0-0.2); BASO% 0.1 % (0.0-0.8); EOS# 0.04 X1000 (0.0-0.7); EOS% 0.2 % (0.0-10.0); HEMATOCRIT 29.6 % (42.0-52.0); HEMOGLOBIN 9.4 g/dL (14.0-18.0); IMM GRAN# 0.09 X1000 (0.0-0.04); IMM GRAN% 0.5 % (0.0-0.5); LYMPH# 0.68 X1000 (1.2-3.4); LYMPH% 4.1 % (20.5-51.1); MCH 25.8 PG (27-31); MCHC 31.8 g/dL (33-37); MCV 81.3 FL (81-99); MONO# 0.95 X1000 (0.11-0.59); MONO% 5.7 % (1.7-9.3); MPV 11.3 FL (7.4-10.4); NEUT# 14.94 X1000 (1.4-6.5); NEUT% 89.4 % (42.2-75.2); PLT 249 X1000 (130-400); RBC 3.64 XMIL (4.7-6.1); RDW 22.4 % (11.5-14.5); WBC 16.71 X1000 (4.8-10.8)
[2018-12-02] MEDS: LEVOPHED 8 MG in D5 1/2 NS 250 ML IV SCH (06:54)
[2018-12-02 07:00] LABS: ALB/GLOB RATIO 0.9; ALBUMIN 2.5 g/dL (3.5-5.0); CALCIUM 7.8 mg/dL (8.8-10.2); CREATININE 3.4 mg/dL (0.7-1.2); MAGNESIUM 2.1 mg/dL (1.5-2.7); POTASSIUM 5.1 mmol/L (3.5-5.1); TOTAL BILIRUBIN 1.19 mg/dL (0.20-1.00); TOTAL PROTEIN 5.2 g/dL (6.3-8.3)
--- NOTE | 2018-12-02 07:11 | Diag Imaging Result Doc PS360 ---
EXAM: CHEST-PORTABLE HISTORY: respiratory failure TECHNIQUE: Portable chest single view COMPARISON: 12/01/2018 FINDINGS: Endotracheal tube is in good position. There are sternal wires and surgical clips as well as a right-sided pacemaker. No cardiomegaly. There are small pleural effusions. Increased interstitial markings in the lower left lung remain. The overall appearance is similar to the prior exam. IMPRESSION: Stable chest Electronically signed by Mulugeta Dickens 12/02/2018 7:09 AM
[2018-12-02] MEDS: DUONEB (A & A) INH SCH ×3 (07:59→23:32)
[2018-12-02] MEDS: CORDARONE PO SCH (08:49)
[2018-12-02] MEDS: PROSCAR PO SCH (08:50)
[2018-12-02] MEDS: LACTULOSE PO SCH (08:50)
[2018-12-02] MEDS: MIRALAX PO SCH (08:50)
[2018-12-02] MEDS: ATIVAN IV PRN ×5 (09:24→21:52)
[2018-12-02 12:35] LABS: HEMATOCRIT 28.2 % (42.0-52.0)
--- NOTE | 2018-12-02 13:20 | PROVIDER PROGRESS NOTE ---
Progress Note SUBJECTIVE: No acute overnight events. No melena overnight. Weaning pressors. No transfusion requirements since 11/30. RN called this afternoon reporting blood clots coming up around ET tube. VSS. Repeat H/H requested. OBJECTIVE: Last Vital Signs Temp 99.4 F 12/02/18 11:52 Pulse 70 12/02/18 12:42 Resp 15 12/02/18 12:42 BP 114/60 12/02/18 11:52 Pulse Ox 96 12/02/18 12:42 Height 5 ft 8 in Weight 169 lb 5 oz GEN: intubated, sedated HEENT: anicteric, ET in place NECK: supple, no jvd CV: RRR, no murmurs PULM: vented BS ABD: soft NT/ND, BS present EXT: no cce NEURO: sedated LABS: 12/02/18 12/02/18 04:15 04:15 WBC 16.71 H Hgb 9.4 L Plt Count 249 Sodium 139 Potassium 5.1 Chloride 102 Carbon Dioxide 19 L BUN 86 H Creatinine 3.4 H Glucose 158 H Total Bilirubin 1.19 H AST 33 ALT 18 Alkaline Phosphatase 134 H Total Protein 5.2 L Albumin 2.5 L EGD 12/01 IMPRESSION: 1. Endoclip found in the mid-esophagus. 2. Copious amounts of clotted blood seen in the esophagus as well as fundus. There did not appear to be any active bleeding 3. Normal duodenum EXAM: CHEST-PORTABLE HISTORY: respiratory failure TECHNIQUE: Portable chest single view COMPARISON: 12/01/2018 FINDINGS: Endotracheal tube is in good position. There are sternal wires and surgical clips as well as a right-sided pacemaker. No cardiomegaly. There are small pleural effusions. Increased interstitial markings in the lower left lung remain. The overall appearance is similar to the priorexam. IMPRESSION: Stable chest A/P: Mr. Mekhi Parra is a 78-year-old gentleman CAD, PAD, , ICM with EF 20% s/p pacemaker, systolic CHF who initially admitted with congestive heart failure exacerbation. GI consulted for hematemesis and hypovolemic shock s/p EGD on 11/30 s/p epinephrine and endoclip placement of suspected bleeding vessel in the mid- esophagus. Repeat EGD on 12/01 to reevaluate the fundus revealed copious old clotted blood in esophagus and gastric fundus without evidence of active bleeding. His hgb has remained stable and primary team is weaning pressors. Emesis today likely represents old blood seen on EGD given stable VSS. Will await repeat H/H. #Hematemesis: suspect 2/2 to midesophagus submucosal vessel; no distal esophageal varices; unable to clear fundus on EGD - trending H/H q6-8 hours, transfuse as needed for goal hgb 7-8 - continue PPI IV BID - if patient developing down-trending hemoglobin and/or increasing pressor requirements, then recommend surgical evaluation #Hypovolemic shock: 2/2 to GI bleed; weaning pressors; maintain MAPS >=60; on stress dose steroids; continue bedside ECHO; on abx #Aspiration PNA: on abx; pulmonary following #CHF: #Anemia: as above #Hypothyroidism: continue synthroid; on steroid dose steroids #FRANCOISE on CKD: 2/2 to shock; renally dose meds; avoid nephrotoxins; defer mgmt to primary Will follow with you.
--- NOTE | 2018-12-02 17:54 | PROGRESS NOTE ---
DATE: 12/02/2018 SUBJECTIVE: The patient has no major complaints. OBJECTIVE: Vital Signs: Blood pressure is 111/59, heart rate of 70, respiratory rate of 17, temperature 99.3 degrees, 100% on 4 L. Cardiovascular: Regular rate and rhythm. Pulmonary: Bilateral breath sounds. Clear auscultation. GI: Soft, nontender, nondistended. Bowel sounds are positive. LABORATORY DATA: White count 16, hemoglobin and hematocrit 9 and 28, platelets 249,000. With pH 7.41, pCO2 of 32, PaO2 of 130 on the ventilator. Creatinine is at 3.4. Chest x-ray shows stable infiltrates. 1. Gastrointestinal bleed, possible esophageal. We will continue IV fluids. We will continue supportive care. Hemoglobin and hematocrit have been stable. Continue proton pump inhibitor and follow. GI is following. No gross evidence of bleeding, but he did have a midesophageal submucosal vessel with no varices. 2. Reported aspiration type pneumonia, but currently he is just on Levaquin. 3. Shock. He is improved. Blood pressure is improved off of vasopressors. He is on low-dose steroids. 4. Congestive heart failure with decompensation. He has been on diuretics. We are monitoring his blood pressure right now. 5. Klebsiella pneumoniae urinary tract infection. He is on Levaquin. 6. Hypothyroidism is stable. DISPOSITION: We are going to continue to follow. Work towards extubation, advancing diet. Also, I am a little concerned about is he has no tube and his large gastric bubble with retained air, so we will need to continue to follow that. He may require NG intubation at some point. cc: Ken Thompson MD [facility]
[2018-12-02] MEDS: DULCOLAX PR SCH ×2 (19:58→20:13)
[2018-12-02] MEDS: LEVAQUIN 500 MG/D5W 500 MG/100 ML IVPB IV SCH ×2 (19:58→20:18)
[2018-12-02] MEDS: LIPITOR PO SCH (20:13)
[2018-12-03] MEDS: PROTONIX 80 MG in NS 80 ML IV SCH ×2 (02:13→12:48)
[2018-12-03] MEDS: LEVOPHED 8 MG in D5 1/2 NS 250 ML IV SCH (02:13)
[2018-12-03] MEDS: ATIVAN IV PRN ×3 (03:02→08:09)
[2018-12-03 04:47] LABS: ALLEN TEST YES; BE -0.2 mmoll (-3.0-3.0); BLOOD TYPE ARTERIAL; HCO3-(ACT) 24.8 mmoll (20.0-26.0); METHB 0.9 % (0.0-1.5); O2(CT) 10.8 mL/dL (15.0-23.0); O2HB 96.4 % (95.0-99.0); PCO2(98.6) 31 mmHg (35-45); PO2(98.6) 184 mmHg (60-100); SAMPLE BLOOD; SAO2 98.1 % (95.0-100.0); SRATE 14 BPM; THB 7.6 g/dL (11.5-17.4); TVOL 600 mL; pH(98.6) 7.48 (7.35-7.45)
[2018-12-03 04:48] LABS: MODALITY VENTILATOR
[2018-12-03] MEDS: SOLU-CORTEF IV SCH ×3 (04:50→20:56)
[2018-12-03 05:53] LABS: ALB/GLOB RATIO 1.2; ALBUMIN 2.7 g/dL (3.5-5.0); CALCIUM 7.9 mg/dL (8.8-10.2); CREATININE 3.4 mg/dL (0.7-1.2); POTASSIUM 4.2 mmol/L (3.5-5.1); TOTAL PROTEIN 4.9 g/dL (6.3-8.3)
--- NOTE | 2018-12-03 07:21 | Diag Imaging Result Doc PS360 ---
KUB ABDOMEN - 12/03/2018 INDICATION: ileus COMPARISON: 12/01/2018 FINDINGS: Stable gaseous distention of the stomach. Stable moderate constipation mainly throughout the transverse colon. No rectal stool impaction. No small bowel obstruction. The small bowel gaseous dilation has significantly improved since prior. IMPRESSION: Significant improvement in the small bowel gaseous distention/ileus. Possible gastroparesis. Mild constipation of the transverse colon. Electronically signed by Man Lucia 12/03/2018 7:19 AM
--- NOTE | 2018-12-03 07:26 | Diag Imaging Result Doc PS360 ---
CHEST-PORTABLE - 12/03/2018 INDICATION: respiratory failure COMPARISON: 12/02/2018 FINDINGS: Stable endotracheal tube in good position at T4-T5. Stable pacemaker and CABG changes. Heart size remains top normal. There has been slight improvement in the hazy bibasilar infiltrates with better visualization of the diaphragms. There are probably small pleural effusions. There is otherwise stable persistent interstitial infiltrates/pulmonary edema. IMPRESSION: Improved aeration of the lung bases. Electronically signed by Man Lucia 12/03/2018 7:24 AM
[2018-12-03] MEDS: DULCOLAX PR SCH ×2 (08:09→20:57)
[2018-12-03] MEDS: DUONEB (A & A) INH SCH ×3 (08:22→23:38)
[2018-12-03] MEDS: CLINIMIX E 4.25%-5% SOLUTION 1,000 ML IV SCH (10:43)
[2018-12-03 10:57] LABS: BASO# 0.01 X1000 (0.0-0.2); BASO% 0.1 % (0.0-0.8); EOS# 0.03 X1000 (0.0-0.7); EOS% 0.2 % (0.0-10.0); HEMATOCRIT 26.2 % (42.0-52.0); HEMOGLOBIN 8.3 g/dL (14.0-18.0); IMM GRAN# 0.05 X1000 (0.0-0.04); IMM GRAN% 0.4 % (0.0-0.5); LYMPH# 0.83 X1000 (1.2-3.4); LYMPH% 6.7 % (20.5-51.1); MCH 26.3 PG (27-31); MCHC 31.7 g/dL (33-37); MCV 83.2 FL (81-99); MONO# 1.24 X1000 (0.11-0.59); MPV 10.4 FL (7.4-10.4); NEUT# 10.18 X1000 (1.4-6.5); NEUT% 82.6 % (42.2-75.2); PLT 171 X1000 (130-400); RBC 3.15 XMIL (4.7-6.1); RDW 23.4 % (11.5-14.5); WBC 12.34 X1000 (4.8-10.8)
[2018-12-03 11:10] LABS: ALLEN TEST YES; BE -0.8 mmoll (-3.0-3.0); BLOOD TYPE ARTERIAL; HCO3-(ACT) 24.3 mmoll (20.0-26.0); METHB 0.9 % (0.0-1.5); O2(CT) 11.9 mL/dL (15.0-23.0); O2HB 95.9 % (95.0-99.0); PCO2(98.6) 30 mmHg (35-45); PO2(98.6) 177 mmHg (60-100); SAMPLE BLOOD; SAO2 97.6 % (95.0-100.0); THB 8.5 g/dL (11.5-17.4); pH(98.6) 7.48 (7.35-7.45)
[2018-12-03 11:11] LABS: MODALITY VENTILATOR
--- NOTE | 2018-12-03 11:12 | PROGRESS NOTE ---
DATE: 12/03/2018 SUBJECTIVE: No acute events overnight. This patient is still intubated. Apparently, he tried to pull the tube and he received a dose of Ativan, so he is resting comfortably right now. Pulmonary Department on board as well as Gastroenterology Department. OBJECTIVE: Vital Signs: Temperature 98.2 degrees, pulse 65, respiratory rate 20, blood pressure 98/50, oxygen saturation 100% on mechanical ventilation. HEENT: Head normocephalic. No trauma. PERRLA. Neck: Supple. No JVD. No masses. Central trachea. Chest: Clear to auscultation. No wheezing. No rales. Abdomen: Soft, nontender, nondistended. No hepatosplenomegaly. Extremities: Trace lower extremity edema. No clubbing. No cyanosis. Neurological: The patient is on mechanical ventilation and sleeping at this time. LABORATORY DATA: Pending CBC. Sodium 138, potassium 4.2, chloride 101, bicarbonate 22, BUN 92, creatinine 3.4, glucose 124, calcium 7.9, albumin 2.7. ASSESSMENT AND PLAN: 1. Acute hypoxemic and hypercapnic respiratory failure likely secondary to aspiration pneumonia. Continue with the same management. He is on mechanical ventilation. 2. Septic shock. He is still on vasopressors. He is also getting a low dose of steroids. Continue with the same management. He is on levofloxacin as well. WBC was trending down, pending CBC today. 3. Aspiration pneumonia. Continue with the same management. 4. Chronic systolic congestive heart failure in a patient with previous coronary bypass surgery with severe coronary artery disease. Continue with the same management. 5. Severe aortic valvular disease. It looks like it is inoperable. Severe pulmonary hypertension, aware. We will continue with the same management. We have a negative balance of 8.8 L. 6. Upper gastrointestinal bleed likely secondary to an esophageal vessel, status post epinephrine and Endo clip placement. Blood found in the esophagus, fundus and second portion of the duodenum. 7. Benign prostatic hypertrophy. We will continue with the same management. 8. Klebsiella pneumoniae urinary tract infection. Continue with Levaquin. 9. Hypothyroidism. Continue with same management, stable. CRITICAL CARE TIME: 35 minutes. cc: Kaushal Alegria MD
--- NOTE | 2018-12-03 11:29 | GASTROENTEROLOGY PROGRESS NOTE ---
DATE: 12/03/2018 SUBJECTIVE: Patient resting in bed. He is intubated, vented. According to the nursing staff, he did not have any vomiting this morning. He has not had a bowel movement for many days. His last bowel was on 11/26/2018. He has been receiving Dulcolax since last night, but no bowel movement today. His blood counts are slowly trending down, but no evidence of active bleeding at the moment. OBJECTIVE: Vitals: Temperature of 98.2, pulse rate 65, respiratory rate 20, blood pressure of 98/50, saturating 100% on mechanical ventilator, FiO2 of 40%. Weight: Body weight of 167 pounds 9.6 ounces. BMI 25.5 kg/m2. General Appearance: Patient is moderately built, moderately nourished, lying in bed, in no acute distress. HEENT: Pale conjunctivae. No icterus. ET tube in place. Neck: Supple. Abdomen: Protuberant. Mild distention noted. No rebound or guarding. Extremities: No cyanosis, clubbing. Neurological: He was able to answer some questions by nodding. He is on some Diprivan drip. DIAGNOSTIC STUDIES: Hemoglobin is 9, hematocrit 28.2, white count of 16.7, platelet count of 249,000. ABG showing pH 7.48, pCO2 of 31, PO2 of 184; this is on ventilator at 40% FiO2. Sodium 130, potassium 4.2, chloride 101, bicarbonate 22, anion gap of 15, BUN of 92, creatinine 3.4, glucose of 124, calcium is 7.9, total bilirubin is 1, AST 27, ALT 19, alkaline phosphatase is 112, total protein 4.9, albumin of 2.7. POC lactate is 1.5. Cortisol 18.2. Chest x-ray done this morning showed improved aeration of the lung bases. Abdominal x-ray showed significant improvement in the small bowel gas, secondary to improvement in small bowel gaseous distention, ileus, possible gastroparesis, mild constipation of the transverse colon. IMPRESSION AND PLAN: 1. Gastrointestinal (GI) bleeding. We will continue to watch hemoglobin and hematocrit and transfuse as needed. He will continue on Protonix IV b.i.d. He had EGD x2 over the weekend, where a possible submucosal vessel was identified in the mid esophagus, and it was clipped. Currently, he does not any signs of active bleeding. 2. Constipation. We will continue on Dulcolax twice daily. We will give him a soapsuds enema x1 if no response to Dulcolax suppository. 3. Hypovolemic shock. He is on pressor support. He is on gentle IV fluids. 4. Aspiration pneumonia. He is on antibiotics. 5. Congestive heart failure. His EF of 20%. He is status post a pacemaker. He was initially admitted for congestive heart failure exacerbation. 6. History of coronary artery disease, peripheral arterial disease, aortic stenosis, and ischemic cardiomyopathy with ejection fraction (EF) of 20%. Aware. Cardiology is following. 7. Hypothyroidism. He is on Synthroid. 8. Acute kidney injury on chronic kidney disease. Continue to follow. 9. Gastrointestinal (GI) prophylaxis. PPIs. 10. Bowel regimen. Dulcolax. 11. Anemia. Continue to watch for now. Transfuse as needed. 12. Malnutrition. He is on Clinimix at 30 mL/hour. The plans were discussed with the patient's nurse at the bedside, and all questions answered. Please call us with any further questions. cc: MD Ken Salcedo MD [facility]
[2018-12-03 11:43] LABS: EOS 1 % (1-10); LARGE PLATELETS OCCASIONAL; LYMPHS 5 % (21-51); MONO 3 % (1-9); SEGS 91 % (42-75)
[2018-12-03 11:44] LABS: ANISOCYTOSIS 2+; POIKILOCYTOSIS OCCASIONAL
[2018-12-03] MEDS: CORDARONE PO SCH (12:47)
[2018-12-03] MEDS: MIRALAX PO SCH (12:47)
[2018-12-03] MEDS: PROSCAR PO SCH (12:48)
--- NOTE | 2018-12-03 14:47 | CARDIOLOGY PROGRESS NOTE ---
DATE: 12/03/2018 SUBJECTIVE: Mr. Parra is somewhat somnolent but wakes to physical and verbal stimuli. PHYSICAL EXAMINATION: Vital Signs: He is afebrile. His heart rate is in the 70s to 80s. His blood pressure most recently was 88/55. Most systolics have been in the 90s to 110s. His Is and Os for the course of the hospitalization have been -8.8 L. General: No acute distress. Cardiovascular: He sounds to be in a regular rate and rhythm with a 2/6 systolic murmur at the right upper sternal border. He has no lower extremity edema, and has warm and well perfused extremities. His chest exam sounds clear bilaterally. He is on a face mask. He has no increased work of breathing. Abdomen: Soft, nontender. PERTINENT DATA: His white count is 12.3, his hematocrit is 26, his platelet count is 171,000. His sodium is 138, potassium is 4.2, BUN is 92, creatinine 3.4. Creatinines have been relatively stable over the last several days. ASSESSMENT: Mr. Parra is a 78-year-old gentleman with a history of severe aortic stenosis. Recently suffered a gastrointestinal bleed. In addition, he is being treated for an aspiration pneumonia. PLAN: His fluid balance seems on a relative negative basis. He had an echocardiogram done earlier this hospitalization, demonstrating an EF of 25 to 30 percent, as well as a valve area of 0.8 cm2 on his aortic valve. Mean gradient was 37. He seems much better volume-barber. Certainly, we will need to keep track of his blood counts. His hematocrit has dropped from 30.5 on the 30th down to 26.2 today. He is off of any pressors. cc: Paras Saavedra MD
[2018-12-03] MEDS: PROTONIX IV SCH (17:37)
--- NOTE | 2018-12-03 18:13 | PULMONOLOGY PROGRESS NOTE ---
DATE: 12/03/2018 SUBJECTIVE: The patient is awake, alert. He is on mechanical ventilation. He has been placed on a spontaneous breathing trial earlier today. He currently has no increased work of breathing. OBJECTIVE: HEENT: Pupils are equal and reactive. Oropharynx is clear. Neck: Supple. Chest: Reveals occasional rhonchi bilaterally. Cardiac: S1, S2. Abdomen: Soft and without hepatosplenomegaly. Extremities: Reveal trace edema. LABORATORIES: Chest x-ray reveals hazy bibasilar infiltrates with some improvement. Microbiology: Sputum culture is pending with sparse growth. White blood count 12.34, hemoglobin 8.3, platelet count 171,000. Sodium 138, potassium 4.2, chloride 101, bicarbonate 22, BUN 92, creatinine 3.4. Arterial blood gas #1 at 4:45 this morning, pH 7.48, pCO2 of 31, PO2 of 184. Arterial blood gas following spontaneous breathing trial reveals a pH 7.48, pCO2 of 30, PO2 of 177. IMPRESSION: 1. This is a 78-year-old with acute hypoxemic respiratory failure. He has done well on a spontaneous breathing trial. 2. Aspiration pneumonia. 3. Ischemic cardiomyopathy. 4. Critical aortic stenosis. 5. Status post gastrointestinal bleed. He is not actively bleeding. RECOMMENDATION: 1. Extubate this afternoon. 2. Continue bronchial hygiene. 3. Continue to evaluate for recurrence of bleeding. 4. Overall prognosis is guarded given multiple medical problems outlined above. Time spent in critical care management: 30+ minutes cc: Daron Chen MD [facility]
[2018-12-03 18:31] LABS: EOS# 0.02 X1000 (0.0-0.7); EOS% 0.2 % (0.0-10.0); HEMATOCRIT 27.3 % (42.0-52.0); HEMOGLOBIN 8.6 g/dL (14.0-18.0); IMM GRAN# 0.04 X1000 (0.0-0.04); IMM GRAN% 0.3 % (0.0-0.5); LYMPH# 0.54 X1000 (1.2-3.4); LYMPH% 4.2 % (20.5-51.1); MCH 26.9 PG (27-31); MCHC 31.5 g/dL (33-37); MCV 85.3 FL (81-99); MONO# 1.15 X1000 (0.11-0.59); MONO% 8.9 % (1.7-9.3); NEUT# 11.18 X1000 (1.4-6.5); NEUT% 86.4 % (42.2-75.2); PLT 167 X1000 (130-400); RDW 23.9 % (11.5-14.5); WBC 12.93 X1000 (4.8-10.8)
[2018-12-03 19:06] LABS: ANISOCYTOSIS 1+; LYMPHS 3 % (21-51); MONO 7 % (1-9); NRBC 1 % (0-0); SEGS 88 % (42-75)
[2018-12-03 19:07] LABS: LARGE PLATELETS OCCASIONAL; POIKILOCYTOSIS 1+
[2018-12-03] MEDS: LEVAQUIN 500 MG/D5W 500 MG/100 ML IVPB IV SCH (20:56)
[2018-12-03] MEDS: LIPITOR PO SCH (21:02)
[2018-12-03] MEDS: NORCO-5 PO PRN (22:12)
[2018-12-03 23:06] LABS: HEMATOCRIT 27.8 % (42.0-52.0); HEMOGLOBIN 8.8 g/dL (14.0-18.0); IMM GRAN# 0.04 X1000 (0.0-0.04); IMM GRAN% 0.3 % (0.0-0.5); LYMPH# 0.37 X1000 (1.2-3.4); LYMPH% 2.6 % (20.5-51.1); MCH 26.1 PG (27-31); MCHC 31.7 g/dL (33-37); MCV 82.5 FL (81-99); MONO# 0.71 X1000 (0.11-0.59); MPV 9.6 FL (7.4-10.4); NEUT# 13.21 X1000 (1.4-6.5); NEUT% 92.1 % (42.2-75.2); PLT 198 X1000 (130-400); RBC 3.37 XMIL (4.7-6.1); RDW 23.5 % (11.5-14.5); WBC 14.33 X1000 (4.8-10.8)
[2018-12-04] MEDS: LEVAQUIN 500 MG/D5W 500 MG/100 ML IVPB IV SCH
[2018-12-04] MEDS: SOLU-CORTEF IV SCH ×3 (04:28→20:06)
[2018-12-04] MEDS: NORCO-5 PO PRN ×4 (04:29→23:02)
[2018-12-04 05:07] LABS: ALLEN TEST YES; BLOOD TYPE ARTERIAL; HCO3-(ACT) 23.4 mmoll (20.0-26.0); O2(CT) 12.6 mL/dL (15.0-23.0); O2HB 95.2 % (95.0-99.0); PCO2(98.6) 31 mmHg (35-45); PO2(98.6) 102 mmHg (60-100); SAMPLE BLOOD; SAO2 97.4 % (95.0-100.0); THB 9.3 g/dL (11.5-17.4); pH(98.6) 7.45 (7.35-7.45)
[2018-12-04 05:08] LABS: MODALITY COOL AEROSOL
[2018-12-04] MEDS: PROTONIX IV SCH ×2 (05:34→17:03)
[2018-12-04 05:49] LABS: HEMATOCRIT 27.4 % (42.0-52.0); HEMOGLOBIN 8.7 g/dL (14.0-18.0); IMM GRAN# 0.06 X1000 (0.0-0.04); IMM GRAN% 0.4 % (0.0-0.5); LYMPH# 0.44 X1000 (1.2-3.4); LYMPH% 2.7 % (20.5-51.1); MCH 26.2 PG (27-31); MCHC 31.8 g/dL (33-37); MCV 82.5 FL (81-99); MONO# 0.91 X1000 (0.11-0.59); MONO% 5.6 % (1.7-9.3); MPV 10.7 FL (7.4-10.4); NEUT# 14.86 X1000 (1.4-6.5); NEUT% 91.3 % (42.2-75.2); PLT 223 X1000 (130-400); RBC 3.32 XMIL (4.7-6.1); RDW 23.6 % (11.5-14.5); WBC 16.27 X1000 (4.8-10.8)
[2018-12-04 06:20] LABS: LYMPHS 6 % (21-51); SEGS 94 % (42-75)
[2018-12-04 06:48] LABS: ALB/GLOB RATIO 1.1; ALBUMIN 2.8 g/dL (3.5-5.0); CALCIUM 8.6 mg/dL (8.8-10.2); CREATININE 3.3 mg/dL (0.7-1.2); POTASSIUM 4.3 mmol/L (3.5-5.1); TOTAL BILIRUBIN 1.31 mg/dL (0.20-1.00); TOTAL PROTEIN 5.3 g/dL (6.3-8.3)
[2018-12-04 07:06] LABS: EOS# 0.01 X1000 (0.0-0.7); EOS% 0.1 % (0.0-10.0); HEMATOCRIT 26.5 % (42.0-52.0); HEMOGLOBIN 8.4 g/dL (14.0-18.0); IMM GRAN# 0.04 X1000 (0.0-0.04); IMM GRAN% 0.3 % (0.0-0.5); LYMPH# 0.32 X1000 (1.2-3.4); LYMPH% 2.3 % (20.5-51.1); MCH 26.3 PG (27-31); MCHC 31.7 g/dL (33-37); MCV 82.8 FL (81-99); MONO# 0.77 X1000 (0.11-0.59); MONO% 5.5 % (1.7-9.3); NEUT# 12.91 X1000 (1.4-6.5); NEUT% 91.8 % (42.2-75.2); PLT 185 X1000 (130-400); RDW 23.4 % (11.5-14.5); WBC 14.05 X1000 (4.8-10.8)
--- NOTE | 2018-12-04 07:29 | Diag Imaging Result Doc PS360 ---
EXAM: CHEST-PORTABLE INDICATION: respiratory failure TECHNIQUE: One view COMPARISON: 12/03/2018 FINDINGS: There has been interval extubation. There is pulmonary venous congestion and interstitial thickening suggesting mild edema. Given differences in positioning, it is approximately stable. No new consolidation is identified. Cardiac silhouette is stable. IMPRESSION: Interval extubation. Essentially stable chest, otherwise. Electronically signed by Ravin Salazar 12/04/2018 7:27 AM
[2018-12-04] MEDS: DUONEB (A & A) INH SCH ×3 (08:25→22:59)
--- NOTE | 2018-12-04 08:35 | PROGRESS NOTE ---
DATE: 12/04/2018 SUBJECTIVE: This patient has been extubated yesterday. Today, he is completely alert. He is oriented x3. He has a past medical history of stroke with right-sided hemiparesis, hemoglobin has been stable. I will start this patient on a liquid diet. It looks like he has been doing good with ice chips. OBJECTIVE: Vital Signs: Temperature 98 degrees, pulse 75, respiratory rate 21, blood pressure 99/48, oxygen saturation 97% on a mask. HEENT: Head normocephalic. No trauma. PERRLA. Neck: Supple. No JVD. No masses. Central trachea. Chest: Clear to auscultation. No wheezing. No rales. Some crepitus at the bases. Abdomen: Soft, nontender, nondistended. No hepatosplenomegaly. Extremities: Trace lower extremity edema. No clubbing. No cyanosis. Neurological: This patient is completely alert. He is oriented x3. He is following commands. He has right-sided hemiparesis due to previous stroke. LABORATORY: WBC 14, hemoglobin 8.4, hematocrit 26.5, platelets 185,000. Sodium 140, potassium 4.3, chloride 102, bicarbonate 20, BUN 102, creatinine 3.3, glucose 125, calcium 8.6, albumin 2.8. ASSESSMENT AND PLAN: 1. Acute hypoxemic and hypercapnic respiratory failure likely secondary to aspiration pneumonia, continue with the same management. He was placed on mechanical ventilation, but now he is extubated and is doing better. We will continue following the recommendations of Pulmonary Department. 2. Septic shock, he is still on vasopressors, low dose, also he is getting steroids, we will continue with the same management. Continue with antibiotics. WBC about the same compared with yesterday. 3. Aspiration pneumonia. Continue with same management. 4. Chronic systolic congestive heart failure in a patient with previous history of coronary bypass surgery with severe coronary artery disease. Continue with same management. 5. Severe aortic valvular disease. It looks like it is inoperable, severe pulmonary hypertension. We will continue with same management. So far, he has been on a negative balance, around 8.7 L, Cardiology Department on board. 6. Upper gastrointestinal bleed likely secondary to esophageal vessel, status post epinephrine and Endo clip placement. Also they found some blood in the esophagus, fundus and second portion of the duodenum, Gastroenterology Department following this patient. Hemoglobin and hematocrit have been stable. I will place this patient on a liquid diet and I will monitor. 7. Benign prostatic hypertrophy, we will continue with same management. 8. Klebsiella pneumonia urinary tract infection. This patient has been placed on Levaquin. 9. Hypothyroidism. Continue with same management, stable. 10. Previous history of stroke with right-sided hemiparesis, aware. CRITICAL CARE TIME: 35 minutes. cc: Kaushal Alegria MD
[2018-12-04] MEDS: PROSCAR PO SCH (08:48)
[2018-12-04] MEDS: DULCOLAX PR SCH ×2 (08:48→20:06)
[2018-12-04] MEDS: CORDARONE PO SCH (08:49)
[2018-12-04] MEDS: MIRALAX PO SCH (08:49)
[2018-12-04 10:28] LABS: HEMATOCRIT 25.9 % (42.0-52.0); HEMOGLOBIN 8.2 g/dL (14.0-18.0); IMM GRAN# 0.05 X1000 (0.0-0.04); IMM GRAN% 0.5 % (0.0-0.5); LYMPH# 0.33 X1000 (1.2-3.4); LYMPH% 3.1 % (20.5-51.1); MCH 26.5 PG (27-31); MCHC 31.7 g/dL (33-37); MCV 83.8 FL (81-99); MONO# 0.61 X1000 (0.11-0.59); MONO% 5.7 % (1.7-9.3); MPV 10.2 FL (7.4-10.4); NEUT# 9.79 X1000 (1.4-6.5); NEUT% 90.7 % (42.2-75.2); PLT 188 X1000 (130-400); RBC 3.09 XMIL (4.7-6.1); RDW 23.8 % (11.5-14.5); WBC 10.78 X1000 (4.8-10.8)
[2018-12-04] MEDS: CLINIMIX E 4.25%-5% SOLUTION 1,000 ML IV SCH (11:05)
[2018-12-04 11:14] LABS: ANISOCYTOSIS 2+; BANDS 2 % (0-1); HYPOCHROM 1+; LYMPHS 4 % (21-51); SEGS 94 % (42-75)
--- NOTE | 2018-12-04 13:29 | PULMONOLOGY PROGRESS NOTE ---
DATE: 12/04/2018 SUBJECTIVE: The patient is awake and alert. He is taking some p.o. intake. He reports back pain. He denies shortness of breath. He has not had additional hemoptysis. OBJECTIVE: Vital signs: Blood pressure 108/82, heart rate 80, respiratory rate 16, oxygen saturation 99% on nasal cannula. HEENT: Pupils are equal and reactive. Oropharynx is clear. Neck is supple. Chest reveals faint crackles in the lung bases. Cardiac exam: S1, S2. Abdomen: Soft with decreased bowel sounds. Extremities reveal trace edema. LABORATORIES: Chest x-ray reveals generous cardiac silhouette with vascular prominence. Pacemaker in position. White blood count 10.78, hemoglobin 8.2, platelet count a 188,000, sodium 140, potassium 4.3, chloride 102, bicarbonate 20, anion gap 18 BUN 102, creatinine 3.3. Arterial blood gas reveals pH 7.45, pCO2 of 31, PO2 of 102 on cool aerosol. IMPRESSION: A 78-year-old with: 1. Acute hypoxemic respiratory failure. 2. Aspiration pneumonia associated with gastrointestinal bleeding. 3. Ischemic cardiomyopathy. 4. Critical aortic stenosis. 5. Gastrointestinal bleeding. Currently not actively bleeding. 6. Acute on chronic renal failure. RECOMMENDATIONS: 1. Continue current oxygen and wean as tolerated. 2. Continue bronchial hygiene. 3. Continue management for gastrointestinal bleeding. 4. Overall prognosis is guarded to poor given multiple medical problems outlined above. cc: Daron Chen MD
[2018-12-04] MEDS ORDERED: LEVAQUIN 250 MG/D5W 250 MG/50 ML IVPB IV SCH (13:30)
--- NOTE | 2018-12-04 15:05 | CARDIOLOGY PROGRESS NOTE ---
DATE: 12/04/2018 SUBJECTIVE: Mr. Parra is a little bit more alert today. He is on nasal cannula. He has no complaints. PHYSICAL EXAMINATION: Vital Signs: He is afebrile. His heart rate is in the 70s to 80s. His blood pressure is 91/66. His Is and Os seem to be generally positive over the last several days. Cardiovascular: He sounds to be in a regular rate and rhythm with a 2/6 systolic murmur at the right upper sternal border. He has lower extremity edema noted in the thigh area, none distally. He has warm and well perfused extremities. Chest: Examination sounds clear bilaterally. No increased work of breathing. Abdomen: Soft, nontender. PERTINENT DATA: White count is 14, hematocrit is 26 which is relatively stable over the last 3 days, his platelet count is 185,000. He has a left shift with a bandemia. His sodium is 140, potassium is 4.3, his BUN is 102, with a creatinine of 3.3. His BUN ratio has continued to climb over the last several days. His total albumin is 1.3. ASSESSMENT: Mr. Parra is a 78-year-old gentleman who presented with congestive heart failure, presumably due to systolic heart failure and severe aortic stenosis. Since that time, he has developed a gastrointestinal bleed as well as respiratory failure. PLAN: I will reinitiate Lasix in this patient at a dose of 40 mg IV daily. His chest x-ray suggested mild pulmonary venous congestion with interstitial edema. He has had a positive fluid balance recently. We will ensure that he has a fluid restriction on his dietary orders. cc: Paras Saavedra MD
[2018-12-04] MEDS: LASIX IV SCH (15:12)
[2018-12-04 16:36] LABS: BASO# 0.01 X1000 (0.0-0.2); BASO% 0.1 % (0.0-0.8); EOS# 0.01 X1000 (0.0-0.7); EOS% 0.1 % (0.0-10.0); HEMATOCRIT 27.5 % (42.0-52.0); HEMOGLOBIN 8.6 g/dL (14.0-18.0); IMM GRAN# 0.04 X1000 (0.0-0.04); IMM GRAN% 0.3 % (0.0-0.5); LYMPH# 0.34 X1000 (1.2-3.4); LYMPH% 2.9 % (20.5-51.1); MCH 26.4 PG (27-31); MCHC 31.3 g/dL (33-37); MCV 84.4 FL (81-99); MONO# 0.46 X1000 (0.11-0.59); MONO% 3.9 % (1.7-9.3); MPV 10.2 FL (7.4-10.4); NEUT# 10.96 X1000 (1.4-6.5); NEUT% 92.7 % (42.2-75.2); PLT 184 X1000 (130-400); RBC 3.26 XMIL (4.7-6.1); WBC 11.82 X1000 (4.8-10.8)
[2018-12-04] MEDS: SODIUM CHLORIDE 0.9% INJ SCH (17:03)
[2018-12-04 17:06] LABS: ANISOCYTOSIS 2+; LYMPHS 3 % (21-51); MONO 1 % (1-9); SEGS 96 % (42-75)
[2018-12-04] MEDS: LIPITOR PO SCH (20:06)
[2018-12-04] MEDS: LEVAQUIN 250 MG/D5W 250 MG/50 ML IVPB IV SCH (22:53)
[2018-12-04] MEDS: ZOFRAN IV PRN (23:17)
[2018-12-05] MEDS: SOLU-CORTEF IV SCH ×2 (04:08→16:47)
[2018-12-05] MEDS: NORCO-5 PO PRN ×3 (04:08→17:03)
[2018-12-05 04:58] LABS: ALLEN TEST YES; BE -1.4 mmoll (-3.0-3.0); BLOOD TYPE ARTERIAL; HCO3-(ACT) 23.8 mmoll (20.0-26.0); METHB 0.5 % (0.0-1.5); O2(CT) 11.7 mL/dL (15.0-23.0); O2HB 95.7 % (95.0-99.0); PCO2(98.6) 32 mmHg (35-45); PO2(98.6) 112 mmHg (60-100); SAMPLE BLOOD; SAO2 97.6 % (95.0-100.0); THB 8.5 g/dL (11.5-17.4); pH(98.6) 7.45 (7.35-7.45)
[2018-12-05 05:00] LABS: MODALITY CANNULA
[2018-12-05] MEDS: PROTONIX IV SCH ×2 (05:34→17:03)
[2018-12-05 07:05] LABS: EOS# 0.01 X1000 (0.0-0.7); EOS% 0.1 % (0.0-10.0); HEMATOCRIT 26.2 % (42.0-52.0); HEMOGLOBIN 8.1 g/dL (14.0-18.0); IMM GRAN# 0.05 X1000 (0.0-0.04); IMM GRAN% 0.5 % (0.0-0.5); LYMPH# 0.38 X1000 (1.2-3.4); LYMPH% 3.7 % (20.5-51.1); MCHC 30.9 g/dL (33-37); MONO# 0.57 X1000 (0.11-0.59); MONO% 5.6 % (1.7-9.3); MPV 10.8 FL (7.4-10.4); NEUT% 90.1 % (42.2-75.2); PLT 208 X1000 (130-400); RBC 3.12 XMIL (4.7-6.1); RDW 24.2 % (11.5-14.5); WBC 10.21 X1000 (4.8-10.8)
[2018-12-05 07:44] LABS: LYMPHS 6 % (21-51); SEGS 94 % (42-75)
--- NOTE | 2018-12-05 07:44 | Diag Imaging Result Doc PS360 ---
EXAM: CHEST-PORTABLE INDICATION: respiratory failure TECHNIQUE: One view COMPARISON: 12/04/2018 FINDINGS: Pulmonary venous congestion and mild edema are essentially stable. There is suggestion of mild atelectasis at the left lung base that is grossly stable. No new consolidation is identified. Cardiac silhouette is stable. IMPRESSION: Essentially stable chest. Electronically signed by Ravin Salazar 12/05/2018 7:42 AM
[2018-12-05 07:49] LABS: ALB/GLOB RATIO 1.3; ALBUMIN 2.9 g/dL (3.5-5.0); CALCIUM 8.7 mg/dL (8.8-10.2); CREATININE 3.2 mg/dL (0.7-1.2); POTASSIUM 4.2 mmol/L (3.5-5.1); TOTAL BILIRUBIN 1.34 mg/dL (0.20-1.00); TOTAL PROTEIN 5.2 g/dL (6.3-8.3)
[2018-12-05] MEDS: LASIX IV SCH (08:08)
[2018-12-05] MEDS: MIRALAX PO SCH (08:08)
[2018-12-05] MEDS: DULCOLAX PR SCH ×3 (08:09→21:12)
[2018-12-05] MEDS: CORDARONE PO SCH (08:09)
[2018-12-05] MEDS: PROSCAR PO SCH (08:09)
[2018-12-05] MEDS: ZOFRAN IV PRN (08:24)
--- NOTE | 2018-12-05 08:40 | PROGRESS NOTE ---
DATE: 12/05/2018 SUBJECTIVE: This patient had been extubated 2 days ago. He has not been getting pressors for the past 24 hours or so. He seems to be doing good. He is alert. He is eating by himself. I will advance the diet and I will transfer this patient to the floor. I already ordered physical therapy but I will get occupational therapy. OBJECTIVE: Vital Signs: Temperature 97.9 degrees, pulse 76, respiratory rate 16, blood pressure 121/61, oxygen saturation 100% on 3 L of nasal cannula. HEENT: Head normocephalic. No trauma. PERRLA. Neck: Supple. No JVD. No masses. Central trachea. Chest: Clear to auscultation. No wheezing. No rales. Some crepitus at the bases. Abdomen: Soft, nontender, nondistended. No hepatosplenomegaly. Extremities: Trace lower extremity edema. No clubbing. No cyanosis. Neurological Examination: The patient is completely alert. He is oriented x3. He is following commands. He has right-sided hemiparesis due to a previous stroke. Laboratory: WBC 10.2, hemoglobin 8.1, hematocrit 26.2, platelets 208,000. Sodium 143, potassium 4.2, chloride 105, bicarbonate 21, BUN 112, creatinine 3.2, glucose 126, calcium 8.7, albumin 2.9. ASSESSMENT AND PLAN: 1. Acute hypoxemic and hypercapnic respiratory failure, likely secondary to aspiration pneumonia. Continue with the same management. He was on mechanical ventilation but extubated 2 days ago. We will continue following the recommendations of pulmonary department. WBC is normal today. 2. Septic shock. He used to be on pressors but they were stopped yesterday in the morning. Also, he has been getting steroids, which I have decreased from three times a day to twice a day. I will continue with antibiotics and WBC is normal today. 3. Aspiration pneumonia. Continue with the same management. 4. Chronic systolic congestive heart failure in a patient with previous history of coronary artery bypass surgery with severe coronary artery disease. Continue with the same management. Cardiology department is following this patient. 5. Severe aortic valvular disease. Apparently, this is inoperable. Severe pulmonary hypertension as well. We will continue with the same treatment. Cardiology on board. We are still in a negative balance. 6. Upper gastrointestinal bleed, likely secondary to an esophageal vessel, status post epinephrine and Endoclip placement. Also, they found some blood in the esophagus, fundus, and second portion of the duodenum but no reported active bleeding in those places. Gastroenterology is following this patient. Hemoglobin and hematocrit are stable. I will advance the diet to a gastrointestinal soft diet at this moment. 7. Benign prostatic hypertrophy. Continue with the same management. 8. Klebsiella pneumoniae, urinary tract infection. This patient has been placed on Levaquin. 9. Hypothyroidism. Continue with same the management. Stable. 10. Previous history of a stroke with right-sided hemiparesis. Aware. 11. This patient seems to be doing better and he seems to be stable. I will transfer this patient to the medical floor. I will continue with the same management. cc: Kaushal Alegria MD
[2018-12-05] MEDS: DUONEB (A & A) INH SCH ×3 (09:35→23:38)
--- NOTE | 2018-12-05 10:02 | PULMONOLOGY PROGRESS NOTE ---
DATE: 12/05/2018 SUBJECTIVE: The patient is awake, alert, and conversant. He is tolerating p.o. intake. He denies shortness of breath. He has a relatively clear cough. OBJECTIVE: Vital Signs: The patient has been afebrile for the last 24 hours. Blood pressure 121/61, heart rate 76, respiratory rate 16, oxygen saturation 98% on 4 L per nasal cannula. HEENT: Pupils are equal and reactive. Oropharynx appears clear. Neck: Supple. Chest: Reveals crackles in the left base. Cardiac Examination: S1 and S2. Abdomen: Soft. Extremities: Revealed chronic dysfunction of the right upper extremity associated with stroke. Laboratories: White blood count 10.21, hemoglobin 8.1, platelet count 208,000. Arterial blood gas reveals pH of 7.45, pCO2 of 32, PO2 of 112 on 2 L per nasal cannula. Sodium 143, potassium 4.2, chloride 105, bicarbonate 21, BUN 112, creatinine 3.2. Chest x-ray reveals mild increased vascular prominence with changes at the left base. IMPRESSION: A 78-year-old with: 1. Aspiration pneumonia associated with gastrointestinal bleed. 2. Acute hypoxemic respiratory failure with improvement. 3. Critical aortic stenosis. 4. Ischemic cardiomyopathy. 5. Gastrointestinal bleed, status vessel clipping in the esophagus without evidence of bleeding for the last several days. 6. Acute on chronic renal failure. RECOMMENDATIONS: 1. Continue oxygen and wean as tolerated. 2. Continue bronchial hygiene. 3. Fluid management as outlined by cardiology. 4. Prognosis is guarded to poor with combined heart, lung, and kidney disease. cc: Daron Chen MD
--- NOTE | 2018-12-05 10:10 | ED EKG INTERP ---
This chart was entered by Kerry Ramos Scribe, acting as scribe for Ricki Salgado MD. EKG Interpretation - EKG Time of EKG reading by physician:: 21:49 EKG Read and Signed by:: Ricki Salgado EKG Interpretation (*Must complete 3 of following elements*): Normal (paced rhythm) Rate: 63 Rhythm: paced Attestation - Physician/ PATRICIA Attestation The physician spent face to face time with patient:: Yes Advanced Practice Provider documentation review:: Supervising physician onsite and consulted in the evaluation and care of this patient. The physician did have a face to face encounter with the patient. This chart was documented by the indicated scribe, (Kerry Ramos Scribe) and accurately reflects the services I performed and decisions made by me, Ricki Salgado MD, as attested by the provider's signature.
--- NOTE | 2018-12-05 13:06 | CARDIOLOGY PROGRESS NOTE ---
DATE: 12/05/2018 SUBJECTIVE: Fidel Bobby has no complaints today. His breathing is okay. He is tolerating oral intake. PHYSICAL EXAMINATION: Vital Signs: The patient is afebrile. His heart rate is 80, blood pressure 122/64. His I's and O's are positive over the last couple of days. General: He is in no acute distress. Cardiovascular: He sounds to be in a regular rate and rhythm with a 2/6 systolic murmur at the right upper sternal border. He has no distal lower extremity Continues to have some 1+ pitting edema in the sacral area. Chest: Sounds relatively clear to auscultation bilaterally. Abdomen: Soft, nontender. PERTINENT DATA: White count 10.2, hematocrit is 26, platelet count is 208. His sodium is 143, his potassium is 4.2, BUN 112, creatinine 3.2. ASSESSMENT: Mr. Parra is a 78-year-old gentleman with : 1. Systolic heart failure. 2. Severe aortic stenosis. 3. Chronic kidney disease. 4. A recent gastrointestinal bleed. PLAN: We reinstituted Lasix at a dose of 40 mg IV daily yesterday. We will continue with this currently. We will follow his I's and O's in the morning. Otherwise, continue on current medications. His blood pressures seem to be better recently. We will try to reinstitute a low dose of Coreg at 3.125 mg daily. He continues on amiodarone. cc: Paras Saavedra MD MTDD
[2018-12-05] MEDS: SODIUM CHLORIDE 0.9% INJ SCH (17:05)
[2018-12-05] MEDS: LIPITOR PO SCH (20:18)
[2018-12-05] MEDS: COREG PO SCH (21:13)
[2018-12-05] MEDS: LEVAQUIN 250 MG/D5W 250 MG/50 ML IVPB IV SCH (22:45)
[2018-12-06] MEDS: NORCO-5 PO PRN ×4 (00:20→20:39)
--- NOTE | 2018-12-06 03:22 | PROVIDER PROGRESS NOTE ---
Progress Note DATE 12/05/2018 Late entry SUBJECTIVE: No acute overnight events. Afebrile. Off pressors. Mild nausea this AM without breakfast. No abdominal pain, vomiting, rectal bleeding, or melena. OBJECTIVE VS, reviewed and stable GEN: awake, alert NAD HEENT: anicteric, MMM NECK: supple, no jvd CV: RRR, no murmurs PULM: vented BS ABD: soft NT, mild distension, BS present EXT: no cce NEURO: nonfocal LABS: 12/05/18 12/05/18 06:00 06:00 WBC 10.21 Hgb 8.1 L Plt Count 208 Sodium 143 Potassium 4.2 Chloride 105 Carbon Dioxide 21 L BUN 112 H Creatinine 3.2 H Glucose 126 H A/P: Mr. Mekhi Parra is a 78-year-old gentleman CAD, PAD, , ICM with EF 20% s/p pacemaker, systolic CHF who initially admitted with congestive heart failure exacerbation. GI consulted for hematemesis and hypovolemic shock s/p EGD on 11/30 s/p epinephrine and endoclip placement of suspected bleeding vessel in the mid-esophagus. Repeat EGD on 12/01 to reevaluate the fundus revealed copious old clotted blood in esophagus and gastric fundus without evidence of active bleeding. His hgb has remained stable and he is off pressors. #Hematemesis: suspect 2/2 to midesophagus submucosal vessel; no distal esophageal varices; unable to clear fundus on EGD - trending H/H q6-8 hours, transfuse as needed for goal hgb 7-8 - continue PPI IV BID - advance diet as tolerated #Shock: resolved #PNA: on abx; pulmonary following #CHF: diuresis as per cardiology; defer to primary #Anemia: as above #FRANCOISE on CKD: 2/2 to shock; renally dose meds; avoid nephrotoxins; defer mgmt to primary Will follow with you.
[2018-12-06] MEDS: SOLU-CORTEF IV SCH ×2 (04:52→15:19)
[2018-12-06] MEDS: PROTONIX IV SCH ×3 (06:00→20:05)
--- NOTE | 2018-12-06 07:28 | Diag Imaging Result Doc PS360 ---
EXAM: CHEST-PORTABLE 12/06/2018 HISTORY: respiratory failure TECHNIQUE: AP portable at 0535 COMMENT: There is some ill-defined opacity bilaterally but particularly notable over the left lower lobe. This was also present on 12/05/2018 and 12/04/2018. IMPRESSION: Pulmonary edema. Electronically signed by Hernando Austin 12/06/2018 7:26 AM
[2018-12-06] MEDS: DUONEB (A & A) INH SCH ×3 (08:02→23:13)
[2018-12-06 08:10] LABS: BASO# 0.01 X1000 (0.0-0.2); BASO% 0.1 % (0.0-0.8); EOS# 0.19 X1000 (0.0-0.7); EOS% 1.2 % (0.0-10.0); HEMATOCRIT 30.5 % (42.0-52.0); HEMOGLOBIN 9.3 g/dL (14.0-18.0); IMM GRAN% 0.6 % (0.0-0.5); LYMPH# 0.32 X1000 (1.2-3.4); LYMPH% 2.1 % (20.5-51.1); MCH 27.8 PG (27-31); MCHC 30.5 g/dL (33-37); MONO# 0.91 X1000 (0.11-0.59); MONO% 5.8 % (1.7-9.3); MPV 10.8 FL (7.4-10.4); NEUT# 14.06 X1000 (1.4-6.5); NEUT% 90.2 % (42.2-75.2); PLT 185 X1000 (130-400); RBC 3.35 XMIL (4.7-6.1); RDW 26.7 % (11.5-14.5); WBC 15.59 X1000 (4.8-10.8)
--- NOTE | 2018-12-06 08:21 | PROGRESS NOTE ---
DATE: 12/06/2018 SUBJECTIVE: This patient was extubated 3 days ago. She is no longer on pressors for more than 48 hours. He seems to be doing good. Fluid management by Cardiology Department. We are monitoring his hemoglobin and hematocrit, pending lab work today. He had a previous stroke with right-sided hemiparesis. As per the patient he was not able to walk before, and usually he needs a electrical wheelchair to go around. OBJECTIVE: Vital Signs: Temperature 97 degrees, pulse 73, respiratory rate 23, blood pressure 105/57, oxygen saturation 98 on nasal cannula 3 L O2. HEENT: Head normocephalic, no trauma. PERRLA. Neck: Supple. No JVD. No masses. Central trachea. Chest: Decreased breath sounds at the bases with some crepitus at the bases as well. No wheezing. Abdomen: Soft, nontender, nondistended. No hepatosplenomegaly. Extremities: Trace lower extremity edema. No clubbing. No cyanosis. Neurological examination: The patient is completely alert. He is oriented x3. He is following commands. He has right-sided hemiparesis due to previous stroke. LABORATORY: Pending at this moment. ASSESSMENT AND PLAN: 1. Acute hypoxemic and hypercapnic respiratory failure, likely secondary to aspiration pneumonia. Continue with the same management. He was placed on mechanical ventilation, but extubated 3 days ago. We will continue following the recommendation of Pulmonary Department. White blood count was normal yesterday, pending results today. 2. Septic shock. He used to be on pressors, but they were stopped already a couple days ago. He also has been getting steroids, which I had decreased yesterday. Probably tomorrow, we will decrease it even more depending on the blood pressure. 3. Aspiration pneumonia. Continue with same management. 4. Chronic systolic congestive heart failure in a patient with a previous history of coronary artery bypass surgery with severe coronary artery disease. Continue with same management. Cardiology Department following this patient and adjusting medications. 5. Severe aortic valvular disease. Apparently, this is inoperable. Severe pulmonary hypertension as well. Continue with same treatment. 6. Upper gastrointestinal bleed, likely secondary to esophageal vessel, status post epinephrine and Endoclip placement. Also, they found some blood in the esophagus, fundus and second portion of the duodenum, but not reporting active bleeding in those places. Gastroenterology following this patient pending hemoglobin and hematocrit today. 7. Benign prostatic hypertrophy. Continue with same management. 8. Klebsiella pneumonia urinary tract infection. Continue with Levaquin. 9. Hypothyroidism. Continue with same management. 10. Previous history of stroke with right-sided hemiparesis, aware. This patient seems to be doing better even though his prognosis is poor due to his multiple comorbidities. We will continue with the same management. cc: Kaushal Alegria MD
[2018-12-06 08:32] LABS: ALB/GLOB RATIO 1.2; ALBUMIN 2.8 g/dL (3.5-5.0); CALCIUM 8.6 mg/dL (8.8-10.2); POTASSIUM 4.3 mmol/L (3.5-5.1); TOTAL BILIRUBIN 1.35 mg/dL (0.20-1.00); TOTAL PROTEIN 5.2 g/dL (6.3-8.3)
[2018-12-06] MEDS: MIRALAX PO SCH ×2 (09:12→20:04)
[2018-12-06] MEDS: PROSCAR PO SCH (09:12)
[2018-12-06] MEDS: COREG PO SCH ×3 (09:12→20:02)
[2018-12-06] MEDS: CORDARONE PO SCH (09:12)
[2018-12-06] MEDS: LASIX IV SCH ×3 (09:12→20:04)
--- NOTE | 2018-12-06 10:42 | PULMONOLOGY PROGRESS NOTE ---
DATE: 12/06/2018 SUBJECTIVE: The patient is awake, alert, and conversant. He reports he feels better than yesterday. He is tolerating p.o. intake. OBJECTIVE: Vital Signs: BP 124/65, heart rate 74, respiratory rate 16, oxygen saturation 99% on 2 L per nasal cannula. HEENT: Pupils are equal and reactive. Oropharynx is clear. Neck: Supple. Chest: Reveals faint crackles in the lung bases. Cardiac Examination: S1, S2. Abdomen: Soft and without hepatosplenomegaly. Extremities: Reveal increased peripheral edema. Laboratories: Chest x-ray reveals mild increased interstitial markings bilaterally which have not changed. Arterial blood gas was not performed today. Chemistry: Sodium 139, potassium 4.3, chloride 103, bicarbonate 18, BUN 115, creatinine 3.0. White blood count 15.6, hemoglobin 9.3, platelet count 185,000. IMPRESSION: A 78-year-old with: 1. Acute gastrointestinal bleed. 2. Ischemic cardiomyopathy with an ejection fraction of 20%. 3. Critical aortic stenosis. 4. Aspiration pneumonia. 5. Acute on chronic renal failure. 6. Acute hypoxemic respiratory failure with improvement. RECOMMENDATIONS: 1. Continue oxygen and wean as tolerated. 2. Agree with a trial of Lasix as outlined per cardiology. 3. Continue bronchial hygiene. 4. Overall prognosis appears poor with heart, lung, and kidney disease. cc: Daron Chen MD
[2018-12-06] MEDS: DULCOLAX PR SCH ×2 (11:53→20:02)
--- NOTE | 2018-12-06 13:09 | GASTROENTEROLOGY PROGRESS NOTE ---
DATE: 12/06/2018 ATTENDING PHYSICIAN: Dr. Galvez. SUBJECTIVE: Patient resting in bed. He is feeling better. Denies any new complaints. Denies any fevers, rigors, chills. Denies any vomiting blood. He continues to struggle with constipation. His last bowel movement was 2 days ago. PHYSICAL EXAMINATION: Vital signs: Temperature 98.2 degrees, pulse rate 74, respiratory rate 16, blood pressure 124/65, saturating 99% on 2 L nasal cannula. Body weight of 178 pounds, 9.6 ounces. General Appearance: Moderately-built, lying in bed, in no acute distress. HEENT: Mild pallor. No icterus. Neck: Supple. Abdomen: Protuberant, soft, nondistended. No guarding. Extremities: No cyanosis, clubbing. Neurologic: He is alert, awake, oriented x3. LABORATORY DATA: Hemoglobin and hematocrit is 9.3 and 30.5, white count of 15.5, platelet count of 185,000. Sodium 139, potassium 4.3, chloride 103, BUN of 115, creatinine of 3, glucose of 118, calcium 8.6. Total bilirubin is 1.35. AST 39, ALT 22, alkaline phosphatase 150, total protein 5.2, albumin of 2.8. Urine culture showing Klebsiella pneumoniae on 11/28/2018. IMAGING: Chest x-ray done today showed pulmonary edema. IMPRESSION AND PLAN: 1. Hematemesis which is secondary to mid esophagus submucosal vessel which was treated with hemoclipping. So far, his hematocrit is stable, he is stable. We will continue PPIs b.i.d. We will continue to watch hemoglobin and hematocrit and transfuse as needed. 2. Coronary disease complicated with ischemic cardiomyopathy, EF of 20%, status post pacemaker. He was admitted with congestive heart failure. Cardiology is following. 3. Pneumonia, on antibiotics. Pulmonary is following. 4. Anemia. Continue to watch for now, transfuse as needed. 5. Acute kidney injury on chronic kidney disease. Being followed by primary care team. 6. Gastrointestinal prophylaxis with proton pump inhibitors. 7. Constipation. Will continue on MiraLAX but we will increase it to 17g twice daily. His last bowel movement was 2 days ago. The above plans discussed with the patient and the nursing staff and all questions answered. Please call us with any further questions. cc: Chris Bynum MD [facility]
--- NOTE | 2018-12-06 13:34 | CARDIOLOGY PROGRESS NOTE ---
DATE: 12/06/2018 SUBJECTIVE: Mr. Parra reports no difficulties other than some chronic left hip pain. He is afebrile, heart rate 75, blood pressure 96/48. His I's and O's over the last couple of days continue to be positive despite his IV Lasix on board. OBJECTIVE: General: He is in no acute distress. Cardiovascular: He is in a regular rate and rhythm with a 2/6 systolic murmur best heard at the right upper sternal border. He has 1+ bilateral lower extremity edema now. Chest exam: Sounds clear. He has no increased work of breathing. Abdomen: Soft, nontender. PERTINENT DATA: His sodium is 139, potassium 4.3, BUN is 115, creatinine is 3. Creatinine continues to be at relative baseline for him. His albumin is 2.8. ASSESSMENT: Mr. Parra is a 78-year-old gentleman who presented with heart failure and severe aortic stenosis. He since has had a gastrointestinal bleed and respiratory failure. PLAN: I will increase his Lasix to b.i.d. dosing. He does not seem to be maintaining a negative fluid balance. His BUN is rising, which I am not sure whether that is a reflection of his renal function versus possibly just gastrointestinal bleeding. His hematocrits seem to have been relatively stable. His last blood transfusion was on the thirtieth. cc: Paras Saavedra MD
[2018-12-06] MEDS: LIPITOR PO SCH ×2 (19:52→20:04)
[2018-12-06] MEDS: LEVAQUIN 250 MG/D5W 250 MG/50 ML IVPB IV SCH (22:17)
[2018-12-07 06:14] LABS: EOS# 0.07 X1000 (0.0-0.7); EOS% 0.6 % (0.0-10.0); HEMATOCRIT 27.5 % (42.0-52.0); HEMOGLOBIN 8.6 g/dL (14.0-18.0); IMM GRAN# 0.04 X1000 (0.0-0.04); IMM GRAN% 0.3 % (0.0-0.5); LYMPH# 0.48 X1000 (1.2-3.4); LYMPH% 3.8 % (20.5-51.1); MCH 26.6 PG (27-31); MCHC 31.3 g/dL (33-37); MCV 85.1 FL (81-99); MONO# 0.85 X1000 (0.11-0.59); MONO% 6.7 % (1.7-9.3); MPV 10.8 FL (7.4-10.4); NEUT# 11.21 X1000 (1.4-6.5); NEUT% 88.6 % (42.2-75.2); PLT 251 X1000 (130-400); RBC 3.23 XMIL (4.7-6.1); RDW 25.1 % (11.5-14.5); WBC 12.65 X1000 (4.8-10.8)
[2018-12-07 06:18] LABS: ALB/GLOB RATIO 1.1; ALBUMIN 2.8 g/dL (3.5-5.0); CALCIUM 8.5 mg/dL (8.8-10.2); CREATININE 3.2 mg/dL (0.7-1.2); POTASSIUM 3.8 mmol/L (3.5-5.1); TOTAL BILIRUBIN 1.28 mg/dL (0.20-1.00); TOTAL PROTEIN 5.3 g/dL (6.3-8.3)
--- NOTE | 2018-12-07 06:53 | Diag Imaging Result Doc PS360 ---
EXAM: CHEST-PORTABLE HISTORY: respiratory failure TECHNIQUE: Portable chest single view COMPARISON: 12/06/2018 FINDINGS: There are increased interstitial markings diffusely in both lungs similar to the prior study. Heart remains borderline mildly prominent. Sternal wires and surgical clips as well as a right-sided pacemaker. The pleural effusions identified. IMPRESSION: Stable chest. Electronically signed by Mulugeta Dickens 12/07/2018 6:51 AM
[2018-12-07 07:36] LABS: ANISOCYTOSIS 2+; BANDS 2 % (0-1); HYPOCHROM 1+; LYMPHS 2 % (21-51); MONO 2 % (1-9); SEGS 96 % (42-75)
[2018-12-07 07:37] LABS: POIKILOCYTOSIS 1+
[2018-12-07] MEDS: CORTEF PO SCH (09:06)
[2018-12-07] MEDS: PROSCAR PO SCH (09:06)
[2018-12-07] MEDS: CORDARONE PO SCH (09:07)
[2018-12-07] MEDS: PROTONIX IV SCH ×2 (09:07→22:29)
[2018-12-07] MEDS: COREG PO SCH ×2 (09:07→22:30)
[2018-12-07] MEDS: SODIUM CHLORIDE 0.9% INJ SCH (09:07)
[2018-12-07] MEDS: LASIX IV SCH ×2 (09:07→22:29)
--- NOTE | 2018-12-07 09:25 | PROGRESS NOTE ---
DATE: 12/07/2018 SUBJECTIVE: The patient has been extubated 4 days ago. He is no longer on pressor for more than 72 hours. Cardiology Department adjusting his medications. He seems to be doing better. He had a previous stroke with right-sided hemiparesis and as per the patient, he was not able to walk before coming to the hospital and usually he an electrical wheelchair to go around. OBJECTIVE: Vital Signs: Temperature 97.8 degrees, pulse 68, respiratory rate 18, blood pressure 104/57, oxygen saturation 100% on 3 L of nasal cannula. HEENT: Head normocephalic no trauma. PERRLA. Neck: Supple. No JVD. No masses. Central trachea. Chest: Decreased breath sounds at the bases with some crepitus at the bases as well. No wheezing. Abdomen: Soft, nontender, nondistended. No hepatosplenomegaly. Extremities: Trace lower extremity edema. No clubbing. No cyanosis. Neurological: The patient is completely alert and oriented x3 he is following commands. He has right-sided hemiparesis due to previous stroke. LABORATORY: WBC 12.6, hemoglobin 8.6, hematocrit 27.5, platelets 251,000. Sodium 138, potassium 3.8, chloride 102, bicarbonate 20, BUN 115, creatinine 3.2, glucose 111, calcium 8.5, AST 31, ALT 20, alkaline phosphatase 109. Albumin 2.8. ASSESSMENT AND PLAN: 1. Acute hypoxemic and hypercapnic respiratory failure secondary to aspiration pneumonia. Continue with the same management. He was placed on mechanical ventilation and extubated 4 days ago. We will continue following the recommendation of Pulmonary Department. White blood cell count was normal a couple days ago, increased yesterday and trending down today again. He is feeling better. 2. Septic shock, no more pressors. He also has been getting steroids. Blood pressure has been stable. I will stop the IV treatment with hydrocortisone. I will continue with p.o. hydrocortisone to see how he does. 3. Aspiration pneumonia, continue with same management. 4. Chronic systolic congestive heart failure in a patient with previous history of coronary artery bypass graft having bypass surgery with severe coronary artery disease. Continue with the same treatment. Cardiology Department adjusting medications. 5. Severe aortic valvular disease, apparently disease inoperable. Severe pulmonary hypertension as well. Continue with the same treatment. 6. Upper GI bleed likely secondary to esophageal vessel, status post epinephrine and Endo clip placement. Also they found some blood in the esophagus, fundus and second portion of the duodenum but no reporting active bleeding in those places. Gastroenterology department following this patient. Hemoglobin and hematocrit stable. 7. Benign prostatic hypertrophy. Continue with same management. 8. Klebsiella pneumonia urinary tract infection. Continue with Levaquin. 9. Hypothyroidism continue with same management. 10. Previous history of stroke with right-sided hemiparesis, aware. 11. This patient has poor prognosis due to all his comorbidities including heart kidney and pulmonary disease. He has a negative balance of 600 mL with a urine output 1.2 L . BUN about the same compared with yesterday. Creatinine increased from 3 to 3.2. 12. Chronic kidney disease. It looks like this patient had an acute on chronic kidney disease. The creatinine is slightly above his baseline. We will continue with the same management for now. cc: Kaushal Alegria MD
[2018-12-07] MEDS: DUONEB (A & A) INH SCH ×3 (10:20→23:34)
[2018-12-07] MEDS: DULCOLAX PR SCH ×2 (10:20→23:37)
[2018-12-07] MEDS: MIRALAX PO SCH ×2 (10:21→23:38)
[2018-12-07] MEDS: NORCO-5 PO PRN ×2 (14:31→22:29)
--- NOTE | 2018-12-07 17:14 | CARDIOLOGY PROGRESS NOTE ---
DATE: 12/07/2018 SUBJECTIVE: Mr. Parra reports he is doing well. He is still quite weak. He is not complaining of any shortness of breath. PHYSICAL EXAMINATION: Vital signs: He is afebrile. Heart rate is 66. His blood pressure is 96/48. His I's and O's have been negative yesterday. General: No acute distress. Cardiovascular: He is in a regular rate and rhythm with a 2/6 systolic murmur best heard at the right upper sternal border. He has no lower extremity edema. Chest: Is clear bilaterally. He has no increased work of breathing. Abdomen: Soft, nontender. PERTINENT DATA: White count is 12.6, hematocrit 27, platelet count is 251,000. He does have a slight bandemia. His sodium is 138, potassium 3.8, BUN 115, creatinine 3.2 which is roughly stable over the last couple of days. ASSESSMENT: Mr. Parra is a 78-year-old with a history of severe aortic stenosis, chronic kidney disease, systolic heart failure who had issues with a GI bleed and respiratory failure during this hospitalization. PLAN: Currently the patient has been running a negative fluid balance. We had escalated his diuretic yesterday. He is currently under discussion with the palliative care service regarding further goals of care. They are pursuing a rehab placement at the time of discharge as well as potentially hospice after that. I believe considering his multiple comorbidities including systolic heart failure, severe aortic stenosis, significant renal insufficiency and debilitation that this would be an appropriate course of action. cc: Paras Saavedra MD
--- NOTE | 2018-12-07 20:11 | PULMONOLOGY PROGRESS NOTE ---
DATE: 12/07/2018 SUBJECTIVE: The patient reports he is having some left hip pain. He reports his breathing is doing well and his sputum production is decreasing. OBJECTIVE: Vital Signs: The patient has been afebrile for the last 24 hours. Blood pressure 102/47, heart rate 78, respiratory rate 17, oxygen saturation 98% on 3 L per nasal cannula. HEENT: Mild temporal wasting. EOMI. PERRL. Oropharynx is clear. Neck: Supple. Chest: Occasional rhonchi bilaterally. Abdomen: Soft. Extremities: Some pain in the left hip with movement of the left leg. No crepitus. LABORATORIES: White blood count 12.6, hemoglobin 8.6, platelet count 251,000. Sodium 138, potassium 3.8, chloride 102, bicarbonate 20, BUN 115, creatinine 3.2. Chest x-ray reveals mild vascular prominence with borderline cardiac silhouette. No change. IMPRESSION: 1. A 78-year-old with acute hypoxemic respiratory failure, with ongoing improvement. 2. Aspiration pneumonia, associated with gastrointestinal bleeding. 3. Aortic stenosis. 4. Ischemic cardiomyopathy. 5. Acute on chronic renal failure. 6. Left hip pain. RECOMMENDATIONS: 1. Continue oxygen and wean as tolerated. 2. Continue fluid management as outlined by Cardiology. 3. Continue bronchial hygiene. 4. Plain film x-ray of the left hip. 5. Overall prognosis is poor. cc: Daron Chen MD
--- NOTE | 2018-12-07 21:28 | Diag Imaging Result Doc PS360 ---
EXAM: XRAY HIP UNILATERAL LT - 12/07/2018 HISTORY: left hip pain TECHNIQUE: Portable left hip two views COMPARISON: None. FINDINGS: There is mild limitation of detail associated with the portable technique. There are mild degenerative changes. There is no fracture or dislocation identified. IMPRESSION: Mild degenerative changes. No evidence of fracture or dislocation. Electronically signed by Chester Forrest 12/07/2018 9:25 PM
--- NOTE | 2018-12-07 21:32 | PROVIDER PROGRESS NOTE ---
Progress Note SUBJECTIVE: No acute overnight events. No fever. Patient reports vomiting up old blood clots a couple days ago. No nausea. He is tolerating diet. No melena or abdominal pain. OBJECTIVE: Last Vital Signs Temp 98.4 F 12/07/18 20:00 Pulse 72 12/07/18 20:00 Resp 16 12/07/18 20:00 BP 110/53 12/07/18 20:00 Pulse Ox 100 12/07/18 20:00 Height 5 ft 8 in Weight 176 lb 7 oz GEN: awake, alert NAD HEENT: anicteric, MMM NECK: supple, no jvd CV: RRR PULM: normal WOB ABD: soft NT, mild distension, BS present EXT: no cce NEURO: nonfocal LABS: 12/07/18 12/07/18 05:07 05:07 WBC 12.65 H Hgb 8.6 L Plt Count 251 D Sodium 138 Potassium 3.8 Chloride 102 Carbon Dioxide 20 L BUN 115 H Creatinine 3.2 H Total Bilirubin 1.28 H AST 31 ALT 20 Alkaline Phosphatase 109 Total Protein 5.3 L Albumin 2.8 L A/P: Mr. Mekhi Parra is a 78-year-old gentleman CAD, PAD, , ICM with EF 20% s/p pacemaker, systolic CHF who initially admitted with congestive heart failure exacerbation. Course complicated by hypovolemic shock from UGIB s/p EGD on 11/30 s/p epinephrine and endoclip placement of suspected bleeding vessel in the mid- esophagus. Repeat EGD on 12/01 to reevaluate the fundus revealed copious old clotted blood in esophagus and gastric fundus. His hgb has remained stable without need for transfusion. #Hematemesis: suspect 2/2 to midesophagus submucosal vessel; no distal esophageal varices; unable to clear fundus during EGD x2 - trend H/H daily, transfuse as needed for goal hgb 7-8 - continue PPI IV BID, can transition to PO once daily upon discharge #Aspiration PNA: on abx; pulmonary following #CHF: diuresis as per cardiology; defer to primary #Anemia: stable; as above #FRANCOISE on CKD: Cr stable; 2/2 to shock; renally dose meds; avoid nephrotoxins; defer mgmt to primary Will follow with you.
[2018-12-07] MEDS: LIPITOR PO SCH (22:29)
[2018-12-07] MEDS: LEVAQUIN 250 MG/D5W 250 MG/50 ML IVPB IV SCH (22:32)
[2018-12-07] MEDS ORDERED: NORCO-5 PO ONE (23:49)
[2018-12-08 05:53] LABS: EOS# 0.15 X1000 (0.0-0.7); EOS% 1.2 % (0.0-10.0); HEMATOCRIT 25.5 % (42.0-52.0); HEMOGLOBIN 7.9 g/dL (14.0-18.0); IMM GRAN# 0.04 X1000 (0.0-0.04); IMM GRAN% 0.3 % (0.0-0.5); LYMPH# 0.47 X1000 (1.2-3.4); LYMPH% 3.9 % (20.5-51.1); MCH 26.2 PG (27-31); MCV 84.7 FL (81-99); MONO# 1.02 X1000 (0.11-0.59); MONO% 8.5 % (1.7-9.3); MPV 10.6 FL (7.4-10.4); NEUT# 10.33 X1000 (1.4-6.5); NEUT% 86.1 % (42.2-75.2); PLT 253 X1000 (130-400); RBC 3.01 XMIL (4.7-6.1); RDW 25.3 % (11.5-14.5); WBC 12.01 X1000 (4.8-10.8)
[2018-12-08 06:36] LABS: ALB/GLOB RATIO 1.2; ALBUMIN 2.7 g/dL (3.5-5.0); CALCIUM 8.2 mg/dL (8.8-10.2); CREATININE 3.1 mg/dL (0.7-1.2); POTASSIUM 3.5 mmol/L (3.5-5.1); TOTAL BILIRUBIN 1.09 mg/dL (0.20-1.00); TOTAL PROTEIN 4.9 g/dL (6.3-8.3)
--- NOTE | 2018-12-08 07:49 | Diag Imaging Result Doc PS360 ---
EXAM: CHEST-PORTABLE - 12/08/2018 HISTORY: respiratory failure TECHNIQUE: Portable chest COMPARISON: 12/07/2018 FINDINGS: There is mild cardiomegaly. There has been overall decrease in interstitial infiltrates/edema. There is mild increased atelectasis at the right base. There is a possible small right pleural effusion. There is no pneumothorax identified. IMPRESSION: Overall decrease in interstitial infiltrates/edema compared to prior. Electronically signed by Chester Forrest 12/08/2018 7:47 AM
[2018-12-08] MEDS: DUONEB (A & A) INH SCH ×3 (08:02→23:17)
--- NOTE | 2018-12-08 08:30 | PROGRESS NOTE ---
DATE: 12/08/2018 SUBJECTIVE: This patient has been extubated 5 days ago. No acute events overnight. He is lying comfortably in bed. We will continue with same management. OBJECTIVE: Vital Signs: Temperature 98.7 degrees, pulse 91, respiratory rate 16, blood pressure 113/55, oxygen saturation 98 on 3 L of nasal cannula. HEENT: Head normocephalic. No trauma. PERRLA. Neck: Supple. No JVD. No masses. Central trachea. Chest: Decreased breath sounds at the bases with some crepitus at the bases as well. No wheezing. Abdomen: Soft, nontender, nondistended. No hepatosplenomegaly. Extremities: Trace lower extremity edema. No clubbing. No cyanosis. Neurological: The patient is completely alert and oriented x3. He is following commands. He has right-sided hemiparesis due to previous stroke. LABORATORY: WBC 12, hemoglobin 7.9, hematocrit 25.5, platelets 253,000. Sodium 137, potassium 3.5, chloride 100, bicarbonate 22, BUN 112, creatinine 3.1, glucose 123, calcium 8.2, albumin 2.7. ASSESSMENT AND PLAN: 1. Acute hypoxemic and hypercapnic respiratory failure secondary to aspiration pneumonia. Continue with the same management. He was placed on mechanical ventilation and extubated 5 days ago. We will continue following the recommendations of Pulmonary Department. He is better, basically back to his baseline. 2. Septic shock, resolved. 3. Aspiration pneumonia, continue with the same management. 4. Chronic systolic congestive heart failure in a patient with a previous history of CABG and severe coronary artery disease. Continue with the same treatment. Cardiology Department adjusting his medications. 5. Severe aortic valvular disease, apparently inoperable, severe pulmonary hypertension as well. Continue with same treatment. 6. Upper GI bleed, likely secondary to esophageal vessel, status post epinephrine and Endoclip placement. We will continue to monitor the hemoglobin and hematocrit. Today the hemoglobin is 7.9. We will monitor. 7. Benign prostatic hypertrophy. Continue with the same treatment. 8. Klebsiella pneumonia urinary tract infection. Continue with Levaquin. 9. Hypothyroidism. Continue with same management. 10. Previous history of stroke with right-sided hemiparesis, aware. 11. CKD, it looks like this patient had an acute on chronic kidney disease, creatinine slightly above his baseline. We will continue with same management for now. 12. Overall, this patient has poor prognosis due to all his comorbidities including heart, kidney, and pulmonary disease. We have a negative balance of 1.1 L. cc: Kaushal Alegria MD
[2018-12-08] MEDS: DULCOLAX PR SCH ×2 (08:38→20:58)
[2018-12-08] MEDS: MIRALAX PO SCH ×2 (08:38→20:58)
[2018-12-08] MEDS: LASIX IV SCH ×2 (08:38→20:56)
[2018-12-08] MEDS: COREG PO SCH ×2 (08:39→20:56)
[2018-12-08] MEDS: CORTEF PO SCH (08:39)
[2018-12-08] MEDS: CORDARONE PO SCH (08:39)
[2018-12-08] MEDS: PROSCAR PO SCH (08:39)
[2018-12-08] MEDS: PROTONIX IV SCH ×2 (08:41→20:57)
[2018-12-08] MEDS: SODIUM CHLORIDE 0.9% INJ SCH ×2 (08:42→20:57)
[2018-12-08] MEDS: NORCO-7.5 PO PRN ×2 (09:05→21:16)
--- NOTE | 2018-12-08 16:07 | GASTROENTEROLOGY PROGRESS NOTE ---
DATE: 12/08/2018 SUBJECTIVE: Resting in bed. He is feeling better. He denies any new complaints. Denies any nausea, vomiting, vomiting blood, or passing blood in the stools. He denies any fevers, rigors, chills. OBJECTIVE: Vitals: Temperature of. 97.7, pulse rate of 73, respiratory rate of 19, blood pressure 105/52, satting 99% on 3 liters nasal cannula. Body weight of 176 pounds. BMI 26.8 kg. General appearance: This is a moderately-nourished male, lying in bed in no acute distress. HEENT: Pale. No icterus. Neck: Supple. Abdomen: Soft, nontender. No guarding. Extremities: No cyanosis, clubbing. Neurologic: Neuro-barber, he is awake, alert. Answers all questions. LABS: Hemoglobin and hematocrit is 7.9 and 25.5, white count of 12.01, platelet count of 253. Sodium 137, potassium 3.5, chloride 100, bicarbonate 22, anion gap 15. BUN of 112, creatinine of 3.1, glucose of 123, calcium is 8.2, magnesium 2.2. Total bilirubin is 1.09, AST 35, ALT 21, alkaline phosphatase 119, total protein 4.9, albumin of 2.7. QuantiFERON test is indeterminate. Urine culture showing Klebsiella pneumoniae. IMPRESSION AND PLAN: 1. Hematemesis, secondary to midesophageal submucosal vessel. He had esophagogastroduodenoscopy x2 last weekend. No current active bleeding. We will keep his hemoglobin in the range of 7 to 8, transfuse as needed. 2. Continue proton pump inhibitors twice daily. 3. Aspiration pneumonia. He is on antibiotics. 4. Congestive heart failure. He is being diuresed by Cardiology. 5. Anemia. Continue to watch for now. Transfuse as needed. 6. Acute kidney injury on chronic kidney disease. Aware. Being managed by primary care team. 7. Coronary artery disease and peripheral artery disease and ischemic cardiomyopathy with ejection fraction of 20%. Status post pacemaker and systolic congestive heart failure. Aware. Being managed by the Cardiology Team. 8. We will continue to follow. He will continue gastrointestinal soft diet. 9. Bowel regimen with MiraLAX twice daily and Dulcolax per rectal twice daily. 10. I will start him on iron C twice daily and multivitamins daily. Discussed the above plans with the patient and answered all questions. Please call us with any further questions. cc: MD Ken Salcedo MD
[2018-12-08] MEDS: LIPITOR PO SCH (20:56)
[2018-12-08] MEDS ORDERED: ICAR-C PO SCH (21:00)
--- NOTE | 2018-12-08 21:51 | PULMONOLOGY PROGRESS NOTE ---
DATE: 12/08/2018 SUBJECTIVE: The patient is awake, alert and conversant. He denies cough or sputum production, although he does have some rhonchi with cough. He denies shortness of breath. He denies hemoptysis or hematemesis. OBJECTIVE: The patient has been afebrile for the last 24 hours. Blood pressure 103/49, heart rate 64, respiratory rate 15, oxygen saturation 100% on 3 L per nasal cannula. HEENT: Pupils are equal and reactive. Oropharynx appears clear. Neck is supple. Chest reveals occasional rhonchi bilaterally. Cardiac exam: S1, S2. Abdomen is soft and without hepatosplenomegaly. DIAGNOSTIC DATA: Chest x-ray reveals cardiomegaly with overall decrease in infiltrate/edema. LABORATORY DATA: Sodium 137, potassium 3.5, chloride 100, bicarbonate 22, BUN 112, creatinine 3.1. White blood count 12.01, hemoglobin 7.9, platelet count 253,000. IMPRESSION: 1. A 78-year-old with acute hypoxemic respiratory failure. 2. Aspiration pneumonia associated with gastrointestinal bleeding. 3. Aortic stenosis. 4. Ischemic cardiomyopathy. 5. [id number] renal failure. Clinically and radiographically he continues to improve. RECOMMENDATIONS: 1. Continue bronchial hygiene. 2. Continue to wean oxygen as tolerated. 3. GI management for ongoing slow decline of hemoglobin level. 4. Overall prognosis is poor. cc: Daron Chen MD
[2018-12-08] MEDS: LEVAQUIN 250 MG/D5W 250 MG/50 ML IVPB IV SCH (22:08)
[2018-12-09] MEDS: NORCO-7.5 PO PRN ×4 (02:30→21:13)
[2018-12-09 07:34] LABS: EOS# 0.15 X1000 (0.0-0.7); EOS% 1.5 % (0.0-10.0); HEMATOCRIT 24.9 % (42.0-52.0); HEMOGLOBIN 7.9 g/dL (14.0-18.0); IMM GRAN# 0.05 X1000 (0.0-0.04); IMM GRAN% 0.5 % (0.0-0.5); LYMPH# 0.44 X1000 (1.2-3.4); LYMPH% 4.4 % (20.5-51.1); MCH 26.9 PG (27-31); MCHC 31.7 g/dL (33-37); MCV 84.7 FL (81-99); MONO# 0.96 X1000 (0.11-0.59); MONO% 9.5 % (1.7-9.3); MPV 10.7 FL (7.4-10.4); NEUT% 84.1 % (42.2-75.2); PLT 224 X1000 (130-400); RBC 2.94 XMIL (4.7-6.1); RDW 25.9 % (11.5-14.5)
[2018-12-09 08:31] LABS: ALB/GLOB RATIO 1.5; ALBUMIN 2.7 g/dL (3.5-5.0); POTASSIUM 3.7 mmol/L (3.5-5.1); TOTAL BILIRUBIN 0.93 mg/dL (0.20-1.00); TOTAL PROTEIN 4.5 g/dL (6.3-8.3)
[2018-12-09] MEDS: DUONEB (A & A) INH SCH ×3 (08:55→23:25)
[2018-12-09] MEDS ORDERED: CENTRUM CHEWABLE PO SCH (09:00)
[2018-12-09] MEDS: CORTEF PO SCH (10:27)
[2018-12-09] MEDS: CORDARONE PO SCH (10:27)
[2018-12-09] MEDS: COREG PO SCH ×2 (10:27→21:15)
[2018-12-09] MEDS: PROSCAR PO SCH (10:27)
[2018-12-09] MEDS: LASIX IV SCH ×2 (10:28→21:15)
[2018-12-09] MEDS: PROTONIX IV SCH ×2 (10:28→21:15)
[2018-12-09] MEDS: DULCOLAX PR SCH ×2 (10:29→21:15)
[2018-12-09] MEDS: CENTRUM SILVER PO SCH (10:29)
[2018-12-09] MEDS: ICAR-C PO SCH ×2 (10:29→21:15)
[2018-12-09] MEDS: MIRALAX PO SCH ×2 (10:30→21:16)
--- NOTE | 2018-12-09 13:43 | PROGRESS NOTE ---
DATE: 12/09/2018 SUBJECTIVE: No acute events overnight. OBJECTIVE: Vital Signs: Temperature 98.7 degrees, pulse 69, respiratory rate 20, blood pressure 106/49, oxygen saturation 95 on 3 L of nasal cannula. HEENT: Head normocephalic. No trauma. PERRLA. Neck: Supple. No JVD. No masses. Central trachea. Chest: Decreased breath sounds at the bases with some crepitus at the bases as well, no wheezing. Abdomen: Soft, nontender, nondistended. No hepatosplenomegaly. Extremities: Trace edema at the level of the lower extremities, no clubbing, no cyanosis. Neurologic: The patient is alert and oriented x3, following commands. Right-sided hemiparesis due to previous stroke. LABORATORY: WBC 10, hemoglobin 7.9, hematocrit 24.9, sodium 136, potassium 3.4, chloride 101, bicarbonate 23, BUN 103, creatinine 3, glucose 117, calcium 8, albumin 2.7. ASSESSMENT AND PLAN: 1. Acute hypoxemic and hypercapnic respiratory failure secondary to aspiration pneumonia, continue with the same treatment. He was placed on mechanical ventilation and extubated 6 days ago. Continue following the recommendations of Pulmonary Department. 2. Septic shock, resolved. 3. Aspiration pneumonia. Continue with same management. 4. Chronic systolic congestive heart failure in a patient with previous history of coronary artery bypass graft and severe coronary artery disease. Continue with same treatment. Cardiology Department on board. 5. Severe aortic valvular disease, apparently inoperable, severe pulmonary hypertension as well. Continue with the same treatment. 6. Upper gastrointestinal bleed likely secondary to esophageal vessel, status post epinephrine and Endoclip placement. Continue to monitor hemoglobin and hematocrit, hemoglobin and hematocrit compared with yesterday about the same. 7. Benign prostatic hypertrophy. Continue with same treatment. 8. Klebsiella pneumonia urinary tract infection. Continue with Levaquin. 9. Hypothyroidism. Continue with the same management. 10. Previous history of stroke with right-sided hemiparesis aware. 11. Chronic kidney disease. It looks like this patient had an acute on chronic kidney disease, creatinine is slightly above his baseline. Will continue with same management for now. 12. Overall this patient has poor prognosis due to all his comorbidities including heart, kidney and pulmonary disease, the plan is to send this patient to a rehab center and then likely after finishing rehabilitation this patient probably will go to hospice. cc: Kaushal Alegria MD
--- NOTE | 2018-12-09 15:10 | GASTROENTEROLOGY PROGRESS NOTE ---
DATE: 12/09/2018 SUBJECTIVE: The patient is resting in bed. He is feeling better. Denies any nausea, vomiting, vomiting blood. He denies any fevers, rigors, chills. PHYSICAL EXAMINATION: Vital Signs: Temperature of 97.8 degrees, pulse rate of 69, respiratory rate of 20, blood pressure 106/49, saturating 90% on nasal cannula at 3 L. General Appearance: Moderately-built, moderately nourished, lying in bed, in no acute distress. HEENT: Pale conjunctivae. No icterus. Neck: Supple. Abdomen: Soft, nontender, nondistended. No guarding. Extremities: No cyanosis or clubbing. Neurologic: He is alert, awake, oriented x3. LABS: Hemoglobin and hematocrit are 7.9 and 24.9, white count of 10.1, platelet count of 224,000. Sodium 136, potassium 3.7, chloride of 101, bicarb of 23, anion gap 12, BUN of 103, creatinine of 3, glucose of 117, calcium is 8. Total bilirubin is 0.93, AST 38, ALT 22, alkaline phosphatase 125, total protein 4.4, albumin of 2.7. His urine culture is showing Klebsiella pneumoniae. Occult blood was positive. IMPRESSION AND PLAN: 1. Hematemesis is now resolved. We will continue to keep an eye on the hematocrit and transfuse as needed. 2. Anemia. Continue to watch for now and transfuse as needed. We will start him on iron C twice a day. 3. Aspiration pneumonia. He is on antibiotics. 4. Congestive heart failure. He is being diuresed by cardiology. 5. Aortic stenosis. Aware. Cardiology is on board. 6. Coronary artery disease, peripheral arterial disease, and ischemic cardiomyopathy with ejection fraction of 20%, status post pacemaker, and systolic congestive heart failure. Aware. 7. Bowel regimen with MiraLAX twice daily and Dulcolax per rectal twice a day. 8. Anemia. He is on iron C twice a day and multivitamins once daily. 9. Gastrointestinal prophylaxis with proton pump inhibitors. 10. He is on a gastrointestinal soft diet and Nepro shakes. 11. The above plan of care was discussed with the patient. All questions were answered. Please call us with any further questions. cc: MD Kaushal Salcedo MD
[2018-12-09] MEDS: LIPITOR PO SCH (21:14)
[2018-12-09] MEDS: SODIUM CHLORIDE 0.9% INJ SCH (21:15)
[2018-12-09] MEDS: LEVAQUIN 250 MG/D5W 250 MG/50 ML IVPB IV SCH (23:06)
[2018-12-09] MEDS ORDERED: TUMS PO ONE (23:20)
[2018-12-10] MEDS: NORCO-7.5 PO PRN ×2 (01:21→21:38)
[2018-12-10 07:38] LABS: EOS# 0.16 X1000 (0.0-0.7); EOS% 1.8 % (0.0-10.0); HEMATOCRIT 24.5 % (42.0-52.0); HEMOGLOBIN 7.7 g/dL (14.0-18.0); IMM GRAN# 0.04 X1000 (0.0-0.04); IMM GRAN% 0.5 % (0.0-0.5); LYMPH# 0.38 X1000 (1.2-3.4); LYMPH% 4.4 % (20.5-51.1); MCH 26.9 PG (27-31); MCHC 31.4 g/dL (33-37); MCV 85.7 FL (81-99); MONO# 0.86 X1000 (0.11-0.59); MONO% 9.9 % (1.7-9.3); MPV 11.1 FL (7.4-10.4); NEUT# 7.29 X1000 (1.4-6.5); NEUT% 83.4 % (42.2-75.2); PLT 229 X1000 (130-400); RBC 2.86 XMIL (4.7-6.1); WBC 8.73 X1000 (4.8-10.8)
[2018-12-10] MEDS: DUONEB (A & A) INH SCH ×3 (07:48→23:20)
[2018-12-10 07:52] LABS: ALB/GLOB RATIO 1.1; ALBUMIN 2.5 g/dL (3.5-5.0); CALCIUM 7.9 mg/dL (8.8-10.2); CREATININE 3.2 mg/dL (0.7-1.2); POTASSIUM 3.8 mmol/L (3.5-5.1); TOTAL BILIRUBIN 0.92 mg/dL (0.20-1.00); TOTAL PROTEIN 4.7 g/dL (6.3-8.3)
--- NOTE | 2018-12-10 08:55 | PROGRESS NOTE ---
DATE: 12/10/2018 SUBJECTIVE: No acute events overnight. OBJECTIVE: Vital Signs: Temperature 98 degrees, pulse 62, respiratory rate 13, blood pressure 92/63, and oxygen saturation 100% on 3 L of nasal cannula. HEENT: Head normocephalic. No trauma. PERRLA. Neck: Supple. No JVD. No masses. Central trachea. Chest: Decreased breath sounds at the bases with some crepitus at the bases as well. No wheezing. Abdomen: Soft, nontender, and nondistended. No hepatosplenomegaly. Extremities: Trace edema at the level of the lower extremities. No clubbing. No cyanosis. Neurological: The patient is alert and oriented x3. He is following commands. Right-sided hemiparesis due to previous stroke. LABORATORY: WBC 8.7, hemoglobin 7.7, hematocrit 24.5, and platelets 229,000. Sodium 139, potassium 3.8, chloride 103, bicarbonate 23, BUN 106, creatinine 3.2, glucose 137, calcium 7.9, and albumin 2.5. ASSESSMENT AND PLAN: 1. Acute hypoxemic and hypercapnic respiratory failure secondary to aspiration pneumonia. We will continue with the same treatment. He was placed on mechanical ventilation and extubated 7 days ago. We will continue following the recommendations of Pulmonary Department. 2. Septic shock, resolved. 3. Aspiration pneumonia. Continue with same management. 4. Chronic systolic congestive heart failure in a patient with a previous history of CABG and severe coronary artery disease. Continue with same management, Cardiology on board. 5. Severe aortic valvular disease, apparently inoperable. Severe pulmonary hypertension as well. Continue with same treatment. Cardiology on board. 6. Upper GI bleed, likely secondary to esophageal vessel, status post epinephrine and Endoclip placement. Continue to monitor hemoglobin and hematocrit. Hemoglobin and hematocrit compared with yesterday decreased a little bit from 7.9 to 7.7. We will monitor. Gastroenterology on board. 7. Benign prostatic hypertrophy. Continue with same treatment. 8. Klebsiella pneumonia urinary tract infection. Continue with Levaquin. 9. Hypothyroidism. Continue with same management. 10. Previous history of stroke with right-sided hemiparesis aware. 11. Chronic kidney disease. It looks like this patient had an acute on chronic kidney disease. Creatinine is slightly above his baseline. We will continue with the same management for now 12. Overall, this patient has poor prognosis due to all of his comorbidities including heart disease, kidney and pulmonary disease. The plan is to send this patient to a rehab center, and then it has been discussed already that after finishing rehabilitation this patient probably will go home with hospice. 13. Anemia, multifactorial. We will monitor for now and transfuse as needed. cc: Kaushal Alegria MD
[2018-12-10] MEDS: CENTRUM SILVER PO SCH (10:51)
[2018-12-10] MEDS: CORTEF PO SCH (10:51)
[2018-12-10] MEDS: COREG PO SCH ×2 (10:51→21:39)
[2018-12-10] MEDS: ICAR-C PO SCH ×2 (10:51→21:39)
[2018-12-10] MEDS: CORDARONE PO SCH (10:51)
[2018-12-10] MEDS: LASIX IV SCH ×2 (10:52→21:40)
[2018-12-10] MEDS: SODIUM CHLORIDE 0.9% INJ SCH ×2 (10:52→21:40)
[2018-12-10] MEDS: PROSCAR PO SCH (10:52)
[2018-12-10] MEDS: PROTONIX IV SCH ×2 (10:52→21:40)
[2018-12-10] MEDS: MIRALAX PO SCH ×2 (10:52→21:38)
[2018-12-10] MEDS: DULCOLAX PR SCH ×2 (10:53→21:39)
--- NOTE | 2018-12-10 13:34 | GASTROENTEROLOGY PROGRESS NOTE ---
DATE: 12/10/2018 SUBJECTIVE: He is resting in bed. He is feeling better. He denies any nausea, vomiting, vomiting blood, or passing blood in the stools. He denies any fevers, rigors, chills, abdominal pain. OBJECTIVE: Vital signs: Temperature 98 degrees, pulse rate of 62, respiratory rate 32, blood pressure 92/33, saturating 100% on nasal cannula. General Appearance: Moderately built, moderately nourished, lying in bed, in no acute distress. HEENT: Pale conjunctivae. No icterus. Pupils equal, reactive to light and accommodation. Neck: Supple. Abdomen: Soft, mild protuberance. No guarding or rebound. Extremities: No cyanosis, clubbing or edema. Neurologic: He is alert, awake, oriented x3. BODY WEIGHT: 174 pounds 4 ounces. LABORATORIES: Hemoglobin and hematocrit is 7.7, 24.4, white count of 8.73, platelet count of 229,000. Sodium 139, potassium 3.8, chloride 103, bicarb 23, anion gap 13, BUN of 106, creatinine 3.2. Glucose of 137, calcium is 7.9, total bilirubin is 0.92. AST 31, ALT 18, alkaline phosphatase 108, total protein is 4.7, albumin of 2.5. His last bowel was yesterday. IMPRESSION AND PLAN: 1. Gastrointestinal bleed secondary to submucosal esophageal vessel status post epinephrine and Endoclip placement per Dr. Amado. He continues to do well. He has no signs of overt gastrointestinal bleeding. We will continue on PPIs b.i.d. 2. Anemia. Continue to watch and transfuse as needed. 3. Acute hypoxic and hypercarbic respiratory failure secondary to aspiration pneumonia. He is on antibiotics per the Primary Care Team. 4. Severe aortic stenosis and severe pulmonary hypertension. Cardiology is on board. 5. Chronic systolic congestive heart failure with a previous history of CABG and severe coronary disease. Cardiology is on board. 6. Klebsiella pneumoniae urinary tract infection. He is on Levaquin. 7. History of stroke with right-sided hemiparesis. Aware. 8. Chronic kidney disease. Aware. 9. Gastrointestinal prophylaxis, proton pump inhibitor. 10. Bowel regimen with MiraLAX twice daily. We will keep him on Iron C b.i.d. for anemia. Above plans were discussed with the patient. All questions were answered. Please call us with any further questions. We will sign off at this time. cc: MD Kaushal Salcedo MD
[2018-12-10] MEDS: LIPITOR PO SCH (21:38)
[2018-12-10] MEDS: ZOFRAN IV PRN (21:39)
[2018-12-10] MEDS: LEVAQUIN 250 MG/D5W 250 MG/50 ML IVPB IV SCH (23:45)
[2018-12-11 07:36] LABS: ALB/GLOB RATIO 1.2; ALBUMIN 2.8 g/dL (3.5-5.0); CALCIUM 8.4 mg/dL (8.8-10.2); POTASSIUM 3.8 mmol/L (3.5-5.1); TOTAL BILIRUBIN 1.13 mg/dL (0.20-1.00); TOTAL PROTEIN 5.2 g/dL (6.3-8.3)
[2018-12-11] MEDS: DUONEB (A & A) INH SCH ×2 (07:44→15:28)
[2018-12-11 08:47] LABS: HEMATOCRIT 30.1 % (42.0-52.0); HEMOGLOBIN 9.4 g/dL (14.0-18.0)
[2018-12-11] MEDS: PROTONIX IV SCH (09:38)
[2018-12-11] MEDS: SODIUM CHLORIDE 0.9% INJ SCH (09:38)
[2018-12-11] MEDS: LASIX IV SCH (09:38)
[2018-12-11] MEDS: CENTRUM SILVER PO SCH (09:39)
[2018-12-11] MEDS: CORTEF PO SCH (09:39)
[2018-12-11] MEDS: PROSCAR PO SCH (09:39)
[2018-12-11] MEDS: ICAR-C PO SCH (09:39)
[2018-12-11] MEDS: CORDARONE PO SCH (09:39)
[2018-12-11] MEDS: COREG PO SCH (09:39)
[2018-12-11] MEDS: MIRALAX PO SCH (09:39)
[2018-12-11] MEDS: DULCOLAX PR SCH (09:39)
--- NOTE | 2018-12-11 10:53 | PROVIDER PROGRESS NOTE ---
Progress Note SUBJECTIVE: No acute overnight events. No N/V/F, CP, SOB, abdominal pain, rectal bleeding. He reports having a soft brown stool 2 days ago. Tolerating diet. OBJECTIVE: Last Vital Signs Temp 98.2 F 12/11/18 07:36 Pulse 64 12/11/18 07:44 Resp 14 12/11/18 07:44 BP 109/57 12/11/18 07:36 Pulse Ox 98 12/11/18 07:44 Height 5 ft 8 in Weight 174 lb GEN: awake, alert NAD HEENT: anicteric, MMM NECK: supple, no jvd CV: RRR, LIZ PULM: normal WOB ABD: soft NT, mild distension, BS present EXT: no cce SKIN: WWP LABS: 12/11/18 07:50 Hgb 9.4 L D Hct 30.1 L D A/P: Mr. Mekhi Parra is a 78-year-old gentleman CAD, PAD, severe , ICM s/p pacemaker, systolic CHF with EF 20% who was admitted with congestive heart failure exacerbation. Course complicated by hypovolemic shock from UGIB. He underwent EGD on 11/30 and is s/p epinephrine and endoclip placement of suspected submucosal vessel in the mid-esophagus. Repeat EGD on 12/01 to reevaluate the fundus revealed copious old clotted blood in esophagus and gastric fundus. GI bleed has resolved. His hgb has remained stable without need for transfusion. Hgb is stable without need for transfusion since 12/01. #Hematemesis: suspect 2/2 to midesophagus submucosal vessel; no distal esophageal varices; unable to clear fundus during EGD x2 - trend H/H daily, transfuse as needed for goal hgb 7-8 - transition to PO PPI once daily upon discharge #Aspiration PNA/UTI: on abx; pulmonary following #Acute hypoxic and hypercapneic respiratory faillure: from PNA; resolved #CHF: diuresis as per cardiology; defer to primary #Anemia: stable; on iron; as above #FRANCOISE on CKD: Cr stable; 2/2 to shock; renally dose meds; avoid nephrotoxins; defer mgmt to primary #GI ppx: on bowel regimen Will sign off. Please call with questions
--- NOTE | 2018-12-11 11:49 | DISCHARGE SUMMARY ---
ADMISSION DATE: 11/21/2018 DISCHARGE DATE: 12/11/2018 PRIMARY CARE MANAGER CABLE: Dr. Paras Saavedra. PRIMARY CARE PROVIDER: [facility] in [place]. CONSULTANTS DURING THIS HOSPITALIZATION: Cardiology, Urology, GI, Pulmonology. ADMISSION DIAGNOSES: 1. An acute on chronic systolic heart failure exacerbation. 2. Microcytic anemia, probably secondary to iron deficiency anemia and a questionable gastrointestinal bleed. 3. Coronary artery disease. 4. Chronic kidney disease. 5. Hypertensive heart disease. 6. Benign prostatic hypertrophy. 7. Peripheral arterial disease. 8. Gout. 9. Hyperlipidemia. DISCHARGE DIAGNOSES: 1. An acute hypoxemic and hypercapnic respiratory failure secondary to an aspiration pneumonia. 2. Aspiration pneumonia. 3. Chronic systolic congestive heart failure. 4. Severe aortic valvular disease, apparently inoperable. 5. Upper gastrointestinal bleed, likely secondary to esophageal vessel, status post epinephrine and Endoclip placement. 6. Benign prostatic hypertrophy 7. Klebsiella pneumoniae urinary tract infection. 8. Hypothyroidism. 9. Chronic kidney disease. 10. Anemia, multifactorial. SUMMARY OF FINDINGS: This is a 78-year-old male who presented, that over the week prior to arriving, he began having progressive shortness of breath with mild exertion, lower extremity and abdominal swelling, worsening cough which was nonproductive. He also reported increased weakness in his lower extremities and had been unable to barely stand and change his pants over the 2 weeks prior to arriving, had increased falls as a consequence of the weakness in his lower extremities. He was noted to have 3+ pitting edema in the right lower extremity and 2+ pitting edema on his left lower extremity, so he was admitted, placed on a Lasix drip. He had a degree of macrocytosis suggestive of a possible iron deficiency anemia. We did Hemoccult stool. He was given a total of 3 units of leukocyte-reduced red blood cells and 1 unit of pheresed red blood cells. We did an echocardiogram on 11/21/2018 that showed an ejection fraction of 25 to 30 percent with moderate mitral regurgitation, moderate to severe tricuspid regurgitation with moderate to severe pulmonary hypertension, severe hypokinesis of the basal inferolateral wall, mild to moderate right ventricular enlargement with mild right atrial enlargement. He was placed on Lasix 60 mg IV b.i.d. On 11/29/2018, we did a venous Doppler of the right leg that showed no deep or superficial venous thrombosis seen in the right lower extremity. We consulted Urology on 11/29/2018 and was having some urinary retention likely secondary to medications that had been stopped. We restarted his finasteride 5 mg p.o. at bedtime, inserted a Rosario catheter at that time and attempted voiding trials 2 to 3 days after. GI did an EGD on 11/30/2018 that showed an impression of blood found in the esophagus, fundus, and 2nd portion of the duodenum, suspected esophageal vessel, does not appear to be a varix, status post epinephrine and Endoclip placement. Pulmonary was consulted on 11/30/2018 after he had to be placed on mechanical ventilation and was on a combination of Levophed and dopamine in the intensive care unit. We did an abdomen x-ray on 12/01/2018 that showed possible constipation with substantial gaseous distention of the stomach. Chest x-ray on 12/02/2018 showed a stable chest, remained intubated. Chest x-ray on 12/03/2018 showed improved aeration of the lung bases, remaining intubated. He was extubated on 12/04/2018. Chest x-ray showing the interval extubation and essentially stable chest otherwise. We did a hip x-ray on 12/07/2018 of the left that showed mild degenerative changes, no evidence of fracture, dislocation. He has made the decision at this time to go to rehab to hopefully get stronger and then possibly if no improvement at that time, may require hospice services upon completion of rehab. DISCHARGE MEDICATIONS: 1. Amiodarone 200 mg p.o. daily. 2. Bisacodyl suppository 1 per rectum b.i.d. p.r.n. 3. Coreg 3.125 mg p.o. b.i.d. 4. Proscar 5 mg p.o. daily. 5. Cortef 20 mg p.o. daily, 6. Icar-C 1 p.o. b.i.d. 7. Centrum Silver 1 p.o. daily. 8. MiraLAX 17 g p.o. b.i.d.. 9. Allopurinol 150 mg p.o. daily. 10. Finasteride 5 mg p.o. daily. 11. Lasix a total of 60 mg p.o. b.i.d. 12. Isosorbide 30 mg p.o. b.i.d.. 13. Multivitamin p.o. daily. 14. Protonix 40 mg p.o. b.i.d. 15. Pravastatin 80 mg p.o. at bedtime. 16. The patient has had a total of 14 days of antibiotics for the Klebsiella UTI and the aspiration pneumonia. It is not felt at this time that he will need any further antibiotics. 17. We will also give him a prescription for [place] 7.5 one p.o. q.4-6 hours p.r.n. FOLLOWUP: Once he completes his rehab stay he will need to follow up with Gastroenterology. He will need to follow up with Cardiology. Follow up with his primary care physician. TIME SPENT: 35 minutes. Dictated by TYRONE Proctor for Yohan Cunningham MD Addendum: Patient seen and examined by myself. Agree with TYRONE note. It reflects my assessment and plan. Patient is being discharged in stable condition. Will be seen by GI after discharge from rehab. cc: TYRONE Proctor MD [facility]
[2018-12-11] MEDS: NORCO-7.5 PO PRN (17:23)
[2018-12-11] MEDS: ZOFRAN IV PRN (19:38)
[2018-12-11 19:49] VITALS: BP 116/60
== END 2018-12-11 20:26 | DRG 291 ==
LOC: ED 16:06 → SUATTDRO 21:27 → 3S 21:27 → ICU 11-30 15:45 → 3S 12-06 12:57 → 3N 12-08 15:43
PROVIDERS: ATTEND Internal Medicine
CPT/HCPCS: 36430; 51702; 71010; 71020; 71045; 71046; 73502; 74000; 74018; 80048; 80053; 81001; 82270; 82533; 82550; 82607; 82728; 82746; 82805; 83540; 83550; 83605; 83735; 83880; 84100; 84439; 84443; 84481; 84484; 85014; 85018; 85025; 85027; 85045; 85610; 85730; 86480; 86850; 86900; 86901; 86920; 87070; 87077; 87088; 87186; 87205; 93005; 93010; 93306; 93971; 94002; 94003; 94640; 94761; 96374; 97110; 97162; 97166; 97530; 99284; A9270; C8929; C9113; J0171; J0330; J0456; J1265; J1644; J1720; J1750; J1940; J1956; J2060; J2250; J2370; J2405; J2765; J3475; J7030; J7040; J7050; P9016; Q9957; S0138; S0164